=== PATIENT | female | born 1965 | race Hispanic/Latino ===

== ENCOUNTER 2017-03-15 11:42 | Emergency (ER) | payer MEDICARE, MEDICAID ==
[2017-03-15 12:26] LABS: #Basophils 0.1 thou/uL (0.0-0.2); #Eosinphils 0.2 thou/uL (0.0-0.7); #Monocytes 0.3 thou/uL (0.11-0.59); #Neutrophils 5.3 thou/uL (1.40-6.50); %Basophils 0.7 % (0.0-1.0); %Eosinophils 3.3 % (0.0-10.0); %Lymphocytes 14.9 % (21.0-51.0); %Monocytes 4.9 % (0.0-10.0); %Neutrophils 76.2 % (42.0-75.0); Hemoglobin 10.4 g/dL (12.0-16.0); Mean Corpuscular HGB CONC 33.3 g/dL (32.0-36.0); Mean Corpuscular Hemoglobin 29.7 pg (27.0-31.0); Mean Corpuscular Volume 89.3 fl (81.0-99.0); Platelet Count 183 thou/uL (130-400); RBC Distribution Width 12.5 % (11.5-14.5); Red Blood Cell (RBC) Count 3.51 mill/uL (4.20-5.40); White Blood Cell (WBC) Count 6.9 thou/uL (4.8-10.8)
[2017-03-15 12:44] LABS: ALT (SGPT) 11 U/L (8-55); AST (SGOT) 6 U/L (5-34); Albumin 2.7 g/dL (3.5-5.0); Alkaline Phosphatase 83 U/L (40-150); Anion Gap 14 mmol/L (10-20); BUN (Urea Nitrogen) 40 mg/dL (7.0-18.7); Bilirubin, Total 0.4 mg/dL (0.2-1.2); CK (CPK) 186 U/L (29-168); Calc. Creatinine Clearance 0 mL/min (70-130); Calcium 8.7 mg/dL (7.8-10.44); Carbon Dioxide 26 mmol/L (22-29); Chloride 100 mmol/L (98-107); Estimated GFR-MDRD 5; Globulin 3.2 g/dL (2.4-3.5); Glucose 487 mg/dL (70-105); Protein, Total 5.9 g/dL (6.0-8.3); Sodium 137 mmol/L (136-145)
[2017-03-15 12:48] LABS: CKMB 3.2 ng/mL (0-6.6); Troponin I 0.066 ng/mL (< 0.028)
[2017-03-15 13:15] LABS: Potassium 2.9 mmol/L (3.5-5.1)
--- NOTE | 2017-03-15 13:24 | RAD ---
CHEST: Date: 03/15/17 HISTORY: Trauma FINDINGS: There is small volume free air under the right hemidiaphragm. This is less likely interposition of sharda wel. There is no bowel on the prior CT examination interposed between the liver and right hemidiaphra gm. Of note, the patient is on peritoneal dialysis. Lungs are otherwise clear. IMPRESSION: 1. Free intraperitoneal gas may be sequelae of patient's peritoneal dialysis. Bowel injury is also w ithin the differential, although less likely. Also less likely interposition of bowel. 2. Clear lungs. Ayanna, the nurse taking care of the patient, was notified of the findings via telephone at 1256 hours. CODE CR. POS: [facility]
[2017-03-15] MEDS ORDERED: Potassium Chloride 20 MEQ TAB ONE (13:25)
--- NOTE | 2017-03-15 13:26 | RAD ---
RIGHT SHOULDER 3 VIEWS: Date: 03/15/17 HISTORY: Trauma. COMPARISON: None. FINDINGS: No displaced fracture or malalignment. Free intraperitoneal gas is present. IMPRESSION: No acute fracture or malalignment. POS: [facility]
--- NOTE | 2017-04-10 18:59 | EKG ---
Test Reason : Blood Pressure : / mmHG Vent. Rate : 064 BPM Atrial Rate : 064 BPM P-R Int : 140 ms QRS Dur : 084 ms QT Int : 442 ms P-R-T Axes : 012 002 112 degrees QTc Int : 455 ms Normal sinus rhythm Voltage criteria for left ventricular hypertrophy Inferior infarct , age undetermined T wave abnormality, consider lateral ischemia Abnormal ECG Confirmed by VESNA SMITH, MADISON Vance ([id number]), editor index CHRIS MYERS ([id number]) on 04/10/2017 6:58:26 PM Referred By: Confirmed By:MADISON MALAGON MD
== END 2017-03-15 14:26 | disposition home or self-care (01) ==
LOC: ERS 11:42
DX: S40.012A Contusion of left shoulder, initial encounter (principal); E87.6 Hypokalemia; E78.5 Hyperlipidemia, unspecified; E03.9 Hypothyroidism, unspecified; E11.22 Type 2 diabetes mellitus with diabetic chronic kidney disease; I13.2 Hypertensive heart and chronic kidney disease with heart failure and with stage 5 chronic kidney disease, or end stage renal disease; I50.9 Heart failure, unspecified; N18.6 End stage renal disease; I42.9 Cardiomyopathy, unspecified; D64.9 Anemia, unspecified; Z79.82 Long term (current) use of aspirin; Z79.899 Other long term (current) drug therapy; W18.30XA Fall on same level, unspecified, initial encounter
CPT/HCPCS: 71046; 80053; 82550; 82553; 84484; 85025; 93005

== ENCOUNTER 2017-05-08 21:26 | Emergency (ER) | payer MEDICARE, MEDICAID ==
[2017-05-08 22:15] LABS: Bilirubin Negative (Negative); Blood, Urine Moderate (Negative); Clarity CLOUDY (Clear); Glucose, Urine (Dipstick) 500 mg/dL (Negative); Leukocyte Negative (Negative); Nitrite Negative (Negative); Protein, Urine (Dipstick) > or equal to 300 mg/dL (Neg-Trace); Specific Gravity, Urine 1.023 (1.002-1.036); Urobilinogen 0.2 mg/dL (0.2-1.0); pH, Urine 6.5 (5.0-9.0)
[2017-05-08 22:19] LABS: Bacteria/HPF 2+ HPF (None Seen); Hyaline Casts/LPF 7-10 HYALINE CAST LPF (0-3 Hyaline); Squamous Epithelial 21-50 HPF (0-3)
[2017-05-08 22:20] LABS: Pathc Cast-AUWi Flag 2.98 (0-2.49)
[2017-05-08 22:37] LABS: #Eosinphils 0.3 thou/uL (0.0-0.7); #Lymphocytes 1.2 thou/uL (1.20-3.40); #Monocytes 0.4 thou/uL (0.11-0.59); #Neutrophils 4.6 thou/uL (1.40-6.50); %Basophils 0.7 % (0.0-1.0); %Eosinophils 4.1 % (0.0-10.0); %Lymphocytes 18.5 % (21.0-51.0); %Neutrophils 70.6 % (42.0-75.0); Hemoglobin 9.4 g/dL (12.0-16.0); Mean Corpuscular Volume 91.2 fl (81.0-99.0); Mean Platelet Volume 8.7 fL (7.4-10.4); Platelet Count 229 thou/uL (130-400); RBC Distribution Width 14.1 % (11.5-14.5); Red Blood Cell (RBC) Count 3.03 mill/uL (4.20-5.40); White Blood Cell (WBC) Count 6.5 thou/uL (4.8-10.8)
[2017-05-08 22:59] LABS: ALT (SGPT) 11 U/L (8-55); AST (SGOT) 10 U/L (5-34); Albumin 3.2 g/dL (3.5-5.0); Alkaline Phosphatase 64 U/L (40-150); Anion Gap 16 mmol/L (10-20); BUN (Urea Nitrogen) 51 mg/dL (7.0-18.7); Bilirubin, Total 0.4 mg/dL (0.2-1.2); Calc. Creatinine Clearance 0 mL/min (70-130); Calcium 8.6 mg/dL (7.8-10.44); Carbon Dioxide 27 mmol/L (22-29); Chloride 101 mmol/L (98-107); Estimated GFR-MDRD 4; Globulin 3.5 g/dL (2.4-3.5); Glucose 319 mg/dL (70-105); Lipase 18 U/L (8-78); Potassium 3.3 mmol/L (3.5-5.1); Protein, Total 6.7 g/dL (6.0-8.3); Sodium 141 mmol/L (136-145)
[2017-05-09] MEDS ORDERED: HYDROcodone/Acetaminophen 5/325 mg Tablet ONE (00:20)
[2017-05-09 00:36] LABS: INR-International Normal Ratio 1.2; PTT 29.7 SEC (22.9-36.1); Prothrombin Time 15.7 SEC (12.0-14.7)
[2017-05-09] MEDS ORDERED: Acetaminophen 500 MG TAB ONE (01:50)
--- NOTE | 2017-05-09 09:22 | RAD ---
PORTABLE CHEST: Date: 05/09/17 PROVIDED CLINICAL HISTORY: Chest pain. FINDINGS: Comparison made with the study dated 02/08/16. Left subclavian cardiac pacing device is again noted. Cardiac silhouette remains enlarged. Vascular c alcification involves the aortic arch. Evaluation of the left lung base is limited. No focal consolid ation, pleural fluid, or pneumothorax apparent. IMPRESSION: Cardiomegaly without evidence for an acute cardiopulmonary process. POS: [facility]
--- NOTE | 2017-05-09 09:59 | CT ---
PRELIMINARY REPORT/[facility]/EMERGENCY AFTER HOURS PROCEDURE: EXAM: CT Abdomen and Pelvis Without Intravenous Contrast EXAM DATE/TIME: Exam ordered 05/09/2017 3:09 AM CLINICAL HISTORY: 51 years old, female; Pain; Abdominal pain; Epigastric; Prior surgery; Patient HX: Er 8; F50 presents to ed C/O epigastric abd pain with migration to the l side. Pt reports back pain and OCAMPO. Pt reports being on dialysis and was due to receive it tonight. Surgical history of appendectomy, surgical histo ry of hysterectomy, surgical history of orthopedic surgery. Abscess on buttocks. Aicd, placement of p d catheter. TECHNIQUE: Axial computed tomography images of the abdomen and pelvis without intravenous contrast. Coronal refo rmatted images were created and reviewed. COMPARISON: No relevant prior studies available. FINDINGS: Lower thorax: Small pericardial effusion. Cardiomegaly. Cardiac device in place. ABDOMEN: Liver: Unremarkable. Gallbladder and bile ducts: Unremarkable. No calcified stones. No ductal dilation. Pancreas: Unremarkable. No ductal dilation. Spleen: Unremarkable. No splenomegaly. Adrenals: Unremarkable. No mass. Kidneys and ureters: Nonobstructive nephrolithiasis right kidney. Stomach and bowel: No bowel wall thickening or intestinal obstruction. Appendix: Appendix not visualized. No evidence of appendicitis. PELVIS: Bladder: Unremarkable. No stones. Reproductive: Prior hysterectomy. ABDOMEN and PELVIS: Intraperitoneal space: Unremarkable. No free air. No significant fluid collection. Bones/joints: No acute fracture. No dislocation. Soft tissues: There is edema/infiltration of the subcutaneous tissue of the superior buttocks bilater ally with small associated calcifications, likely chronic. No soft tissue gas or abscess. Vasculature: Unremarkable. No abdominal aortic aneurysm. Lymph nodes: Unremarkable. No enlarged lymph nodes. Tubes, lines and devices: Percutaneous dialysis catheter present in the pelvis. IMPRESSION: Small pericardial effusion. Thank you for allowing us to participate in the care of your patient. Dictated and Authenticated by: Bijan Quintana MD 05/09/2017 3:41 AM Central Time ([place] & [place]) FINAL REPORT EMERGENCY AFTER HOURS CT ABDOMEN AND PELVIS: Date: 05/09/17 IMPRESSION: I agree with the preliminary interpretation given by Kelsi. Comparison made with the study dated 03/25. Pericardial effusion appears similar to the prior study. POS: [facility]
--- NOTE | 2017-06-05 20:23 | EKG ---
Test Reason : ABD PAIN Blood Pressure : / mmHG Vent. Rate : 078 BPM Atrial Rate : 078 BPM P-R Int : 122 ms QRS Dur : 078 ms QT Int : 426 ms P-R-T Axes : 030 022 066 degrees QTc Int : 485 ms Normal sinus rhythm Minimal voltage criteria for LVH, may be normal variant Cannot rule out Inferior infarct , age undetermined Abnormal ECG Confirmed by DAVE BURNS ([id number]), pictures editor CHRIS MYERS ([id number]) on 06/05/2017 8:23:16 PM Referred By: Confirmed By:DAVE BURNS
== END 2017-05-09 04:06 | disposition home or self-care (01) ==
LOC: ERS 21:26
DX: R10.13 Epigastric pain (principal); I13.2 Hypertensive heart and chronic kidney disease with heart failure and with stage 5 chronic kidney disease, or end stage renal disease; E11.22 Type 2 diabetes mellitus with diabetic chronic kidney disease; N18.6 End stage renal disease; I50.9 Heart failure, unspecified; E78.5 Hyperlipidemia, unspecified; E03.9 Hypothyroidism, unspecified; E66.9 Obesity, unspecified; Z99.2 Dependence on renal dialysis; Z79.82 Long term (current) use of aspirin; Z79.01 Long term (current) use of anticoagulants
CPT/HCPCS: 36415; 71045; 74176; 80053; 81003; 81015; 83690; 85025; 85610; 85730; 93005

== ENCOUNTER 2017-05-20 09:02 | Emergency (ER) | payer MEDICARE, MEDICAID ==
[2017-05-20 09:34] LABS: #Basophils 0.1 thou/uL (0.0-0.2); #Eosinphils 0.2 thou/uL (0.0-0.7); #Monocytes 0.4 thou/uL (0.11-0.59); #Neutrophils 3.3 thou/uL (1.40-6.50); %Basophils 1.1 % (0.0-1.0); %Eosinophils 4.1 % (0.0-10.0); %Lymphocytes 19.9 % (21.0-51.0); %Monocytes 7.4 % (0.0-10.0); %Neutrophils 67.5 % (42.0-75.0); Mean Corpuscular Hemoglobin 30.8 pg (27.0-31.0); Mean Corpuscular Volume 90.5 fl (81.0-99.0); Mean Platelet Volume 8.5 fL (7.4-10.4); Platelet Count 221 thou/uL (130-400); RBC Distribution Width 13.2 % (11.5-14.5)
[2017-05-20 09:55] LABS: ALT (SGPT) 10 U/L (8-55); AST (SGOT) 10 U/L (5-34); Albumin 2.9 g/dL (3.5-5.0); Alkaline Phosphatase 61 U/L (40-150); Anion Gap 16 mmol/L (10-20); BUN (Urea Nitrogen) 57 mg/dL (7.0-18.7); Bilirubin, Total 0.3 mg/dL (0.2-1.2); Calc. Creatinine Clearance 0 mL/min (70-130); Calcium 8.9 mg/dL (7.8-10.44); Carbon Dioxide 28 mmol/L (22-29); Chloride 99 mmol/L (98-107); Estimated GFR-MDRD 5; Globulin 3.5 g/dL (2.4-3.5); Glucose 302 mg/dL (70-105); Protein, Total 6.4 g/dL (6.0-8.3); Sodium 139 mmol/L (136-145)
[2017-05-20 10:03] LABS: CKMB 3.7 ng/mL (0-6.6); Troponin I 0.054 ng/mL (< 0.028)
[2017-05-20] MEDS ORDERED: HYDROcodone/Acetaminophen 10/325 mg Tablet ONE (10:19)
--- NOTE | 2017-05-20 11:20 | RAD ---
PORTABLE CHEST: HISTORY: Right flank pain. Patient fell. COMPARISON: 05/09/2017 FINDINGS: Heart size is enlarged. Pacemaker is present. Lungs are clear of infiltrates. No rib fractures vis ualized. IMPRESSION: Cardiomegaly. POS: [facility]
--- NOTE | 2017-05-20 11:32 | ULT ---
RIGHT UPPER QUADRANT ULTRASOUND: HISTORY: A 51-year-old female with right upper quadrant pain. FINDINGS: The liver echogenicity is mildly hyperechoic, evidence for a nonspecific hepatic parenchymal process. No evidence of gallstones, gallbladder wall thickening, or pericholecystic fluid. The common bile duct is 0.2 cm. The visualized pancreas is unremarkable. The right kidney shows some diffuse increa sed echogenicity within the renal cortex, evidence for nonspecific chronic renal disease. IMPRESSION: 1. Minimal coarse increased liver echogenicity, evidence for nonspecific chronic liver disease. 2. Increased echogenicity within the right renal cortex, evidence for nonspecific right renal/kidney disease. 3. No gallstones or renal hydronephrosis or other acute process. POS: [facility]
== END 2017-05-20 12:01 | disposition home or self-care (01) ==
LOC: ERS 09:02
DX: B02.9 Zoster without complications (principal); R10.11 Right upper quadrant pain; I13.2 Hypertensive heart and chronic kidney disease with heart failure and with stage 5 chronic kidney disease, or end stage renal disease; I50.9 Heart failure, unspecified; N18.6 End stage renal disease; E78.5 Hyperlipidemia, unspecified; E03.9 Hypothyroidism, unspecified; E11.9 Type 2 diabetes mellitus without complications; D64.9 Anemia, unspecified
CPT/HCPCS: 36415; 71045; 76705; 80053; 82553; 83880; 84484; 85025; 93005

== ENCOUNTER 2017-06-12 23:08 | Emergency (ER) | payer MEDICARE, MEDICAID ==
[2017-06-12 23:32] LABS: #Eosinphils 0.3 thou/uL (0.0-0.7); #Lymphocytes 1.1 thou/uL (1.20-3.40); #Monocytes 0.4 thou/uL (0.11-0.59); #Neutrophils 3.3 thou/uL (1.40-6.50); %Basophils 0.8 % (0.0-1.0); %Eosinophils 4.9 % (0.0-10.0); %Lymphocytes 21.4 % (21.0-51.0); %Monocytes 8.2 % (0.0-10.0); %Neutrophils 64.7 % (42.0-75.0); Hemoglobin 10.1 g/dL (12.0-16.0); Mean Corpuscular HGB CONC 35.4 g/dL (32.0-36.0); Mean Corpuscular Hemoglobin 32.6 pg (27.0-31.0); Mean Platelet Volume 8.7 fL (7.4-10.4); Platelet Count 192 thou/uL (130-400); RBC Distribution Width 14.2 % (11.5-14.5); Red Blood Cell (RBC) Count 3.11 mill/uL (4.20-5.40); White Blood Cell (WBC) Count 5.1 thou/uL (4.8-10.8)
[2017-06-12 23:53] LABS: Chloride 99 mmol/L (98-107); Potassium 4.2 mmol/L (3.5-5.1); Sodium 137 mmol/L (136-145)
[2017-06-13 00:05] LABS: Albumin 3.1 g/dL (3.5-5.0)
[2017-06-13 00:07] LABS: Globulin 3.6 g/dL (2.4-3.5); Glucose 445 mg/dL (70-105); Protein, Total 6.7 g/dL (6.0-8.3)
[2017-06-13 00:08] LABS: Carbon Dioxide 25 mmol/L (22-29)
[2017-06-13 00:09] LABS: Bilirubin, Total 0.4 mg/dL (0.2-1.2)
[2017-06-13 00:10] LABS: Alkaline Phosphatase 86 U/L (40-150); Calc. Creatinine Clearance 0 mL/min (70-130); Estimated GFR-MDRD 5
[2017-06-13 00:11] LABS: BUN (Urea Nitrogen) 52 mg/dL (7.0-18.7)
[2017-06-13 00:12] LABS: AST (SGOT) 12 U/L (5-34)
[2017-06-13 00:13] LABS: ALT (SGPT) 14 U/L (8-55)
[2017-06-13 00:19] LABS: Anion Gap 17 mmol/L (10-20)
[2017-06-13] MEDS ORDERED: Aspirin 325 MG TAB ONE ×2 (01:10→01:11)
[2017-06-13] MEDS ORDERED: Morphine 4 MG/ML VIAL ONE (01:10)
[2017-06-13 01:26] LABS: CKMB 4.6 ng/mL (0-6.6); Troponin I 0.037 ng/mL (< 0.028)
--- NOTE | 2017-06-13 08:28 | RAD ---
AP VIEW CHEST: HISTORY: Mid back and chest pain. FINDINGS: AP view chest is obtained and demonstrates a dual-lead intracardiac defibrillator. Cardiomegaly is seen. Pulmonary vascular congestion is seen. No evidence of effusions, pneumonia, o r pneumothorax is seen. IMPRESSION: Cardiomegaly and pulmonary vascular congestion. POS: [facility]
== END 2017-06-13 03:25 | disposition home or self-care (01) ==
LOC: ERS 23:08
DX: M54.6 Pain in thoracic spine (principal); I13.2 Hypertensive heart and chronic kidney disease with heart failure and with stage 5 chronic kidney disease, or end stage renal disease; N18.6 End stage renal disease; I50.9 Heart failure, unspecified; E78.5 Hyperlipidemia, unspecified; E03.9 Hypothyroidism, unspecified; E66.9 Obesity, unspecified; E11.9 Type 2 diabetes mellitus without complications; D64.9 Anemia, unspecified
CPT/HCPCS: 36415; 71045; 80053; 82553; 84484; 85025; 93005; 94760; 96374; J2270

== ENCOUNTER 2017-07-07 11:27 | Observation (INO) | payer MEDICARE, MEDICAID ==
[2017-07-07 11:54] LABS: #Basophils 0.1 thou/uL (0.0-0.2); #Eosinphils 0.3 thou/uL (0.0-0.7); #Monocytes 0.5 thou/uL (0.11-0.59); #Neutrophils 3.6 thou/uL (1.40-6.50); %Basophils 1.2 % (0.0-1.0); %Eosinophils 5.6 % (0.0-10.0); %Lymphocytes 18.4 % (21.0-51.0); %Monocytes 9.5 % (0.0-10.0); %Neutrophils 65.4 % (42.0-75.0); Hemoglobin 9.2 g/dL (12.0-16.0); Mean Corpuscular HGB CONC 33.8 g/dL (32.0-36.0); Mean Corpuscular Hemoglobin 31.2 pg (27.0-31.0); Mean Corpuscular Volume 92.3 fl (81.0-99.0); Mean Platelet Volume 9.5 fL (7.4-10.4); Platelet Count 164 thou/uL (130-400); RBC Distribution Width 12.8 % (11.5-14.5); Red Blood Cell (RBC) Count 2.94 mill/uL (4.20-5.40); White Blood Cell (WBC) Count 5.4 thou/uL (4.8-10.8)
--- NOTE | 2017-07-07 12:12 | RAD ---
SINGLE VIEW CHEST: HISTORY: Bilateral lower extremity swelling with abdominal pain and shortness of breath. COMPARISON: 06/13/2017 FINDINGS: A single view of the chest shows an enlarged cardiomediastinal silhouette. There appears to be free air beneath the right diaphragm. The pacemaker is unchanged in position, and there is no evidence of consolidation, mass, or pleural effusion. IMPRESSION: There appears to be free air beneath the right hemidiaphragm. A CT of the abdomen and pelvis is travis mmended for further evaluation. Dr. Coy reported the patient does perform peritoneal dialysis, and a CT of the abdomen is ordere d at this time. This was discussed with Dr. Coy at 12:07 p.m. on 07/07/2017. CODE CR POS: [facility]
[2017-07-07 12:18] LABS: ALT (SGPT) 11 U/L (8-55); AST (SGOT) 14 U/L (5-34); Albumin 2.8 g/dL (3.5-5.0); Alkaline Phosphatase 77 U/L (40-150); Anion Gap 17 mmol/L (10-20); BUN (Urea Nitrogen) 57 mg/dL (7.0-18.7); Bilirubin, Total 0.3 mg/dL (0.2-1.2); Calc. Creatinine Clearance 0 mL/min (70-130); Calcium 7.8 mg/dL (7.8-10.44); Carbon Dioxide 23 mmol/L (22-29); Chloride 102 mmol/L (98-107); Estimated GFR-MDRD 5; Globulin 3.3 g/dL (2.4-3.5); Glucose 464 mg/dL (70-105); Magnesium 1.6 mg/dL (1.6-2.6); Potassium 4.3 mmol/L (3.5-5.1); Protein, Total 6.1 g/dL (6.0-8.3); Sodium 138 mmol/L (136-145)
[2017-07-07 12:26] LABS: CKMB 5.1 ng/mL (0-6.6); Troponin I 0.046 ng/mL (< 0.028)
--- NOTE | 2017-07-07 13:01 | CT ---
ABDOMEN CT WITH CONTRAST PELVIC CT WITH CONTRAST: Date: 07/07/17 COMPARISON: 04/09/16. HISTORY: Previous appendectomy and hysterectomy. Lower extremity swelling. Abdominal pain and shortness of boyd ath. TECHNIQUE: Abdomen and pelvic CT are performed with IV contrast. Enteric contrast was not administered. Coronal reformatted images are submitted for interpretation. FINDINGS: ABDOMEN CT: Heart is enlarged. Small amount of pericardial fluid. Visualized lung bases are clear. The descending thoracic aorta and abdominal aorta have a normal caliber. No periaortic fat stranding. Gallbladder is contracted due to nonfasting state. Intra and extrahepatic portal vein is patent. Liver, spleen, pancreas, and adrenal glands have appropriate enhancement. No gastrohepatic, retrocrural, or periportal lymphadenopathy. There is free air in the abdomen, similar to the previous examination and felt to be secondary to per itoneal dialysis. No mesenteric mass or lymphadenopathy. No significant free fluid. Symmetric enhancement of the kidneys. Bilaterally, no obstructive uropathy. Vascular calcifications i n the left and right renal pelvis are noted. Bilateral ureters have normal caliber. No hydroureter, periureteral fat stranding, or ureterolithiasis. Symmetric attenuation of the psoas muscles. Limited evaluation of the alimentary canal due to lack of oral contrast. Grossly unremarkable gastric mucosa. There are small foci of air along the greater curvature of the stomach. Presence of air is p resumed to be secondary to peritoneal dialysis catheter. Multiple normal caliber small bowel loops. N o evidence of small bowel dilatation. Ileocecal junction is normal. Scattered fecal material in a non distended, nondilated colon. There is diverticulosis. No definite diverticulitis. PELVIC CT: Urinary bladder is decompressed. No pelvic mass, lymphadenopathy, or free air. Trace amount of free f luid in the pelvis. Uterus is surgically absent. No lytic or blastic lesions in the osseous structures. IMPRESSION: Pneumoperitoneum, which is presumed to be due to peritoneal dialysis. No obvious bowel injury. Evalua tion is limited by the lack of oral contrast. If the patient has peritoneal sign, and there is concer n for possible bowel injury, consider a general surgical consultation. Results of study discussed with Gracy Coy on 07/07/17 at 1222 hours. CODE CR. POS: [facility]
[2017-07-07 13:34] LABS: INR-International Normal Ratio 1.7; PTT 34.5 SEC (22.9-36.1); Prothrombin Time 20.1 SEC (12.0-14.7)
[2017-07-07] MEDS ORDERED: ISOVUE-370 76%-LOCM 1 ML ONE (15:14)
[2017-07-07] MEDS ORDERED: cloNIDine 0.1 MG TAB ONE ×2 (15:48→15:49)
[2017-07-07] MEDS ORDERED: hydrALAZINE 20 MG/ML VIAL SLOW IVP PRN (16:35)
[2017-07-07] MEDS ORDERED: Acetaminophen 325 MG TAB PO PRN (16:35)
[2017-07-07] MEDS ORDERED: Dextrose 5% in Water 1,000 ML IV PRN (16:35)
[2017-07-07] MEDS ORDERED: Dextrose 50% Abboject 50 ML SYRINGE SLOW IVP PRN (16:35)
[2017-07-07] MEDS ORDERED: HYDROcodone/Acetaminophen 5/325 mg Tablet PO PRN ×2 (16:35)
[2017-07-07 16:49] VITALS: BMI 51.2
[2017-07-07] MEDS ORDERED: Warfarin Sodium 5 MG TAB PO SCH (17:00)
[2017-07-07] MEDS: Calcium Acetate 667 MG CAP PO SCH (18:11)
[2017-07-07] MEDS: Metoclopramide 10 MG/10 ML UDCUP PO SCH ×2 (18:12→19:50)
[2017-07-07] MEDS: Carvedilol 25 MG TAB PO SCH (18:12)
[2017-07-07] MEDS: HumaLOG 300 UNITS/3 ML VIAL SC PRN (18:20)
[2017-07-07] MEDS: Isosorbide Dinitrate 20 MG TAB PO SCH (19:50)
[2017-07-07] MEDS ORDERED: HumaLOG 300 UNITS/3 ML VIAL SC PRN (20:45)
[2017-07-07] MEDS ORDERED: Famotidine 20 MG TAB PO SCH (21:00)
--- NOTE | 2017-07-07 22:35 | CON ---
DATE OF CONSULTATION: 07/07/2017 HISTORY OF PRESENT ILLNESS: Ms. Nuñez is a 51-year-old female with ESRD from presumed d iabetic nephropathy and admitted for ? of shortness of breath. She also was complaining of nasal con gestion. During the initial evaluation, she had noted as extremely high blood pressure with a BP sys tolic more than 200. She is now admitted for further observation. We are now being consulted for he r maintenance peritoneal dialysis. REVIEW OF SYSTEMS: Positive for mild shortness of breath. Positive for chronic leg swelling. No na usea, no vomiting, no diarrhea, no constipation, no productive cough, no abdominal pain, no headache, no diplopia, no fever or chills, no gross hematuria, no dysuria, no hematochezia, no melena. No hem atemesis. Occasional joint pains. MEDICATIONS: Currently on PhosLo 667 mg 3 tabs t.i.d. with meals, calcitriol 0.5 mcg q. day, Ecotrin 81 mg tab once a day, Jellico 5/325 q.4 hours p.r.n., Coreg 50 mg p.o. b.i.d., Pepcid 20 mg q.a.m., hy dralazine 10 mg IV q.3 hours p.r.n., Humalog sliding scale, Synthroid 25 mcg q. day, Isordil 20 mg p. o. b.i.d., Zestril 40 mg at bedtime, Coumadin as directed, Reglan 50 mg at bedtime. PAST MEDICAL HISTORY: 1. ESRD from diabetic nephropathy - on maintenance peritoneal dialysis. 2. Type 2 diabetes mellitus. 3. Hypothyroidism. 4. Cardiomyopathy - EF of 30%. 5. Hyperlipidemia. 6. Status post CHF. 7. Morbid obesity. 8. Hypertension. PAST SURGICAL HISTORY: 1. Status post PD catheter placement. 2. The patient is status post cardiac catheterization. 3. Status post hysterectomy. 4. Status post appendectomy. 5. Status post right ankle surgery. 6. Status post great toe amputation. 7. Status post cuffed dialysis catheter placement. SOCIAL HISTORY: The patient lives in [place], lives with her daughter. She has 4 children. Retired w orker for [email or web address] No IV drug abuse. No alcohol use. No history of smoking. Education, primary grade in [place]. Status post blood transfusion. ALLERGIES: None. TRAUMA: None. IMMUNIZATIONS: Up to date. HOSPITALIZATIONS: Please see past medical history. FAMILY HISTORY: No family history of ESRD. PHYSICAL EXAMINATION: VITAL SIGNS: Blood pressure is 226/122, heart rate 69, respiratory rate 18, pulse ox 95%, temperatur e 98.3. GENERAL: Noted to be awake, supine, comfortable, morbidly obese. SKIN: Adequate turgor. HEENT: She has a slight pale conjunctivae, anicteric sclerae. NECK: No neck mass, no carotid bruits, no JVD. CHEST: No deformities. LUNGS: Clear breath sounds, no wheezing, no crackles. HEART: Normal sinus rhythm. Grade 2/6 systolic murmur, no gallops, no rubs. ABDOMEN: Globular, soft, nontender, no masses. EXTREMITIES: Positive for edema. NEUROLOGIC: Awake, oriented to 3 spheres. Moving all extremities. No tremors, no asterixis, no alina anthony. LABORATORY DATA AND IMAGING: Laboratories on 07/07/2017, white count 5.4, hemoglobin 9.2. Sodium 13 8, potassium 4.3, chloride 102, carbon dioxide 23, BUN 57, creatinine 8.88, glucose 464, calcium 7.8. LFTs normal. Chest x-ray, no overt CHF. CT scan of the abdomen and pelvis, no acute intraabdomina l lesions noted. ASSESSMENT AND PLAN: 1. Congestive heart failure - symptoms suggest fluid overload. However, the chest x-ray did not shakila w any overt congestive heart failure. My plan is to at least for tonight only will use a 4.25% PD so lution alternating with 2.5% PD solution to enhance ultrafiltration. 2. End-stage renal disease. We will continue current CCPD regimen. For tonight, we will be using 4 .25 alternating with 2.5% PD solution. In the following day, we will convert her back to 2.5% PD belinda ution using a 2.5 liter fill volume and run her PD for at least 10 hours. 3. Hypertension. Resume current blood pressure medications. 4. Chronic leg edema - enhance fluid filtration with the peritoneal dialysis. Overall, agree with c urrent management. ADDENDUM: Review of the last Kt/V with her current peritoneal dialysis suggests she is adequately di alyzed.
[2017-07-07] MEDS: hydrALAZINE 25 MG TAB PO SCH (23:44)
--- NOTE | 2017-07-08 01:16 | CON ---
DATE OF CONSULTATION: 07/07/2017 HISTORY OF PRESENT ILLNESS: The patient is a 51-year-old [place]-Maced[place] female with longstanding history of hypertension, ischemic and nonischemic cardiomyopathy, coronary artery disease, and end-stage renal disease on peritoneal dialysis. She is brought in by her family because of increased shortness of breath and peripheral edema. In the emergency room, her blood pressure was elevated. She denies any chest discomfort, fever, or chills. She does complain of some mild abdominal pain. PAST MEDICAL HISTORY: Hypertension, coronary artery disease, end-stage renal disease, cardiomyopathy, paroxysmal atrial fibrillation, hyperlipidemia, and diabetes. OPERATIONS: ICD placement (single chamber), appendectomy, hysterectomy, and ankle surgery. MEDICATIONS: Aspirin 81 daily, atorvastatin 80 mg at bedtime, Rocaltrol 0.25 daily, Tums 800 mg at bedtime, carvedilol 50 mg b.i.d., gabapentin 300 at bedtime, hydralazine 25 t.i.d., insulin, isosorbide dinitrate 10 b.i.d., levofloxacin 250 mg q. 2 days, levothyroxine 25 mcg daily, lisinopril 20 b.i.d. , and warfarin as directed. ALLERGIES: None. SOCIAL HISTORY: She does not smoke or drink. FAMILY HISTORY: Negative for coronary artery disease. REVIEW OF SYSTEMS: A 10-point review of systems otherwise unremarkable. PHYSICAL EXAMINATION: VITAL SIGNS: Blood pressure 204/101. HEENT: PERRL. NECK: Supple. CHEST: Clear. CARDIAC: S1 and S2 are normal without any S3, S4, or murmurs. ABDOMEN: Normal bowel sounds. EXTREMITIES: Revealed 1-2+ pretibial edema. NEUROLOGIC: Grossly intact. SKIN: Warm and dry. LABORATORY DATA: EKG reveals normal sinus rhythm. Hemoglobin 9.2, hematocrit 27.9, white count 5400, and platelets 164,000. INR 1.7. Sodium 138, potassium 4.3, chloride 102, carbon dioxide 23, BUN 57, creatinine 8.88, glucose 464. Troponin I maximum is 0.046. IMPRESSION: 1. End-stage renal disease on peritoneal dialysis with volume overload. 2. Hypertension, poorly controlled. 3. Coronary artery disease. 4. Paroxysmal atrial fibrillation. 5. Ischemic and nonischemic cardiomyopathy with ejection fraction of 30%. 6. Diabetes. 7. Hyperlipidemia. PLAN: The patient's hydralazine will be increased from 25 mg t.i.d. to 50 mg t.i.d. She probably needs more aggressive volume removal. We will follow the patient. MTDD
[2017-07-08] MEDS: HumaLOG 300 UNITS/3 ML VIAL SC PRN ×2 (05:33→12:05)
[2017-07-08] MEDS: hydrALAZINE 25 MG TAB PO SCH (05:46)
[2017-07-08] MEDS ORDERED: Levothyroxine Sodium 25 MCG TAB PO SCH (06:00)
[2017-07-08] MEDS: Isosorbide Dinitrate 20 MG TAB PO SCH (07:43)
[2017-07-08] MEDS: Calcium Acetate 667 MG CAP PO SCH (07:43)
[2017-07-08] MEDS: Carvedilol 25 MG TAB PO SCH (07:44)
[2017-07-08] MEDS: Metoclopramide 10 MG/10 ML UDCUP PO SCH (07:45)
[2017-07-08] MEDS ORDERED: INSULIN ASPART SQ SCH (09:00)
[2017-07-08] MEDS ORDERED: Calcitriol 0.25 MCG CAP PO SCH (09:00)
[2017-07-08] MEDS ORDERED: Aspirin 81 mg Enteric Coated Tablet PO SCH (09:00)
[2017-07-08] MEDS ORDERED: [UNRECOGNIZED DRUG - OTHER] SQ SCH (09:00)
[2017-07-08] MEDS ORDERED: INSULIN ASPART PROTAMINE SQ SCH (09:00)
[2017-07-08] MEDS ORDERED: Lisinopril 20 MG TAB PO SCH (09:00)
[2017-07-08] MEDS ORDERED: Amlodipine 10 MG TAB PO SCH (09:15)
[2017-07-08] MEDS ORDERED: Sodium Chloride 0.9% 110 ML ONE (10:16)
[2017-07-08] MEDS ORDERED: Insulin NPH/Reg Insulin Hm 300 UNITS/3 ML VIAL SC SCH ×3 (10:30→21:00)
[2017-07-08] MEDS ORDERED: CALCIUM ACETATE PO SCH (12:00)
[2017-07-08] MEDS ORDERED: Calcium Acetate 667 MG CAP PO SCH (12:00)
--- NOTE | 2017-07-08 12:28 | PRG ---
DATE OF SERVICE: 07/08/2017 RENAL MEDICINE SUBJECTIVE: Ms. Savannah Franco is 51-year-old female with ESRD, on peritoneal dialysi s. She was admitted for mild CHF as well as labile hypertension. I did ask the patient's daughter, and she tells me that when she takes her BP meds, sometimes the blood pressure goes down for that faby son, sometimes she skips it. She was counseled regarding compliance with her BP meds and to call us if she has any problem. In addition, I used alternating 2.5/4.25% peritoneal dialysis solution to en stone ultrafiltration. We were able to pull out 1.5 liters of fluid this morning. No other complain ts. She feels a little better. PHYSICAL EXAMINATION: VITAL SIGNS: Blood pressure is 116/79, heart rate is 75, respiratory rate 18, pulse ox 97%, temperat ure 98.3. GENERAL: Awake, alert, comfortable, obese, not in distress. SKIN: Adequate turgor. HEENT: Slightly pale conjunctivae, anicteric sclerae. NECK: No neck mass, no carotid bruits, no JVD. CHEST: No deformities. LUNGS: Decreased breath sounds. No wheezing. HEART: Normal sinus rhythm. No murmurs, no gallops, no rubs. ABDOMEN: Globular, soft, nontender, no masses. Positive for PD catheter. EXTREMITIES: Trace edema. MEDICATIONS: Medications of 07/08/2017 was reviewed. LABORATORY DATA: Laboratories of 07/07/2017; hemoglobin 9.2. On 07/08/2017, glucose 429. On 07/07/2017, BUN 67, creatinine 8.88, potassium 4.3. ASSESSMENT AND PLAN: 1. End-stage renal disease - continuing current peritoneal dialysis. I did instruct the patient and daughter to use alternating 4.25% with 2.5% to enhance ultrafiltration and they will do this until S unday. This is assuming she will be discharged today. She will resume back to a regular 2.5% PD belinda ution next week. 2. Shortness of breath, improved. Adjust peritoneal dialysis solution to enhance ultrafiltration. 3. Labile hypertension, much improved. Advised compliance with her blood pressure meds. If she shakila uld have a problem, I instructed the patient to call the dialysis unit. From a renal point of view, she can be discharged.
[2017-07-08 12:44] VITALS: TEMP 98.7
--- NOTE | 2017-07-08 12:53 | HP ---
DATE OF ADMISSION: 07/07/2017 PRIMARY CARE PHYSICIAN: Ijeoma Hilliard PRIMARY CHOIR DIRECTOR: Dr. Stephens PRIMARY CUSTOMER EXPERIENCE STRATEGIST: Dr. Mcdaniel TIME OF SERVICE: 1500 CHIEF COMPLAINT: Increased lower extremity edema, abdominal pain, and headache. HISTORY OF PRESENT ILLNESS: Ms. Savannah Dhaliwal is a 51-year-old female with his tory of end-stage renal disease on peritoneal dialysis nightly, hypertension, anemia of renal disease , metabolic bone disease, hyperlipidemia, ischemic cardiomyopathy and chronic systolic congestive hea rt failure. She does has obesity, diabetes, and hypothyroidism. She presented to the emergency depa rtment for multiple complaints. Her main complaints are lower extremity swelling for the last 2-3 da ys with increased pain due to the swelling. She has had abdominal pain in the left lower quadrant th at is worse with cough and she complains of a headache for 1 day located in the bifrontal area. She has some shortness of breath and some sore throat and chronic postnasal drip and also had some vomiti ng a few days ago, but no blood. She has been a little bit lightheaded. She describes just feeling a little dizzy when she first stands up and also complained of chronic back pain. She presented to the emergency department for evaluation. Her labs were normal for end-stage renal d isease. Blood pressure was elevated at 220/84. Chest x-ray showed possible free air, but CT confirm ed some free air secondary to the peritoneal dialysis catheter, otherwise no abnormalities. We have subsequently been called for admission. On my evaluation, she was a chronically ill-appearing, severely obese, lying in bed, had no other cur rent complaints. PAST MEDICAL HISTORY: 1. End-stage renal disease, on peritoneal dialysis nightly managed by Dr. Stephens. 2. Hypertension. 3. Anemia of renal disease. 4. Metabolic bone disease. 5. Hyperlipidemia. 6. Ischemic cardiomyopathy with an EF of 30%, followed by Dr. Mcdaniel. 7. Chronic systolic congestive heart failure. 8. Hypothyroidism. 9. Obesity. 10. Diabetes mellitus type 2, insulin-dependent. PAST SURGICAL HISTORY: 1. Right hallux amputation. 2. Appendectomy. 3. Hysterectomy. 4. Right ankle ORIF remotely. 5. Buttock abscess drainage. 6. AICD implantation due to cardiomyopathy. 7. Peritoneal dialysis catheter placement 11/2015. HOME MEDICATIONS: 1. Tylenol p.r.n. 2. Atorvastatin 80 mg p.o. at bedtime. 3. Calcitriol 0.5 mg p.o. three times weekly. 4. PhosLo 667 mg x4 tablets t.i.d. a.c. 5. Coreg 50 mg p.o. b.i.d. 6. Isosorbide dinitrate 10 mg p.o. b.i.d. 7. Levothyroxine 25 mcg daily. 8. Lisinopril 40 mg daily. 9. Reglan p.r.n. 10. Vitamin D3 5000 units daily. 11. Warfarin 5 mg Wednesday, Wednesday, Wednesday, Wednesday, Wednesday and 7.5 mg on Wednesday, . 12. Hydralazine 25 mg p.o. t.i.d. p.r.n. systolic pressure greater than 140. 13. Insulin 70/30, 20 units subcu b.i.d. ALLERGIES: NKDA. FAMILY HISTORY: No clotting or bleeding disorder. No immune dysfunction. SOCIAL HISTORY: Negative for habits x3. She has multiple children. Her son and her daughter are wi th her. REVIEW OF SYSTEMS: All systems were reviewed and negative, except as stated as above. PHYSICAL EXAMINATION: VITAL SIGNS: Temperature 97.6, pulse 78, blood pressure 220/84, respiratory rate 16, sat 94% on room air. GENERAL: She is awake. She is alert. She is oriented x3. She is a severely obese f emale, appears syndromic. She has normal speech pattern. Otherwise, in no distress. HEENT: Normocephalic, atraumatic. Pupils equal, react to light bilaterally. Mucous membranes are m oist. She has a posterior nasal drip. NECK: Obese. I cannot palpate JVD or lymphadenopathy. LUNGS: Clear to auscultation bilaterally. She has decreased breath sounds bilaterally, particularly in the bases. No wheezes, no rales, no rhonchi. No prolonged expiratory phase. CARDIOVASCULAR: She has normal cardiac and regular. Normal S1, S2. I cannot hear an S3 or S4. I c annot hear murmurs. ABDOMEN: Obese. It is nontender, nondistended. Peritoneal dialysis catheter in the right lower david drant is clean, dry and intact. She has no rebound, rigidity or guarding. No peritoneal signs. EXTREMITIES: No cyanosis or clubbing with 1+ edema up to the ankle level. Her skin is otherwise war m, moist and well perfused without any rashes or lesions. No erythema. NEUROLOGIC: Cranial nerves II-XII are grossly intact without any focal neurologic deficits. SKIN: She has normal speech pattern. She had 5/5 strength in all 4 extremities. MUSCULOSKELETAL: Normal to inspection. Large joints appear normal. She had adequate range of motio n and no palpable effusions. No inflammation. LABORATORY DATA: Sodium 138, potassium 4.3, chloride 102, bicarb 23, BUN 57, creatinine 8.88, glucos e of 464, mag of 1.6. Albumin is low 2.8. Her liver functions, otherwise completely within normal limits. CBC showed a wh ite count of 5.4, hemoglobin 9.2, hematocrit 27.2, platelet count is 164,000. Normal differential. CK-MB is normal at 5.1. Troponin I is indeterminate at 0.046, but is at her baseline. BNP was carola l. INR is 1.7. Chest x-ray showed possible free air. Her CT scan of the abdomen showed a pneumoperitoneum secondary to her PD catheter, otherwise negative. ASSESSMENT AND PLAN: 1. Hypertensive urgency. Blood pressure 220/80s on arrival. Blood pressure not adequately controll ed, suppose to take her morning medicines. We will resume her home medications. We will go and sche dule her hydralazine and watch overnight. IV hydralazine ordered p.r.n. and may need to add somethin g more long-acting. We will consult Dr. Stephens. 2. End-stage renal disease on hemodialysis. Dr. Stephens will be consulted. 3. Acute on chronic systolic congestive heart failure, will diurese with Lasix tonight, Dr. Stephens will adjust her peritoneal dialysate to maximize fluid removal. 4. Abdominal pain likely secondary to muscle strain from coughing. 5. Lower extremity edema secondary to volume overload. Interestingly, the daughter asked to go down to the cafeteria and get her mom some soup for dinner, however, when I explained to her that it had a high sodium content she literally had no idea what I was talking about. 6. Frontal headache, likely secondary to hypertension. 7. Chronic shortness of breath. 8. Posterior sore throat secondary to postnasal drip. 9. Essential hypertension. 10. Anemia of renal disease. 11. Metabolic bone disease. 12. Hyperlipidemia. 13. Ischemic cardiomyopathy as above. 14. Hypothyroidism 15. Diabetes mellitus type 2. We will continue sliding scale insulin for now. We will hold her 70/ 30 and likely start it in the morning.
[2017-07-08 12:57] VITALS: BP 164/80
--- NOTE | 2017-07-08 14:36 | DIS ---
DATE OF ADMISSION: 07/07/2017 DATE OF DISCHARGE: 07/08/2017 PRIMARY CARE PHYSICIAN: Juliano Dobbins. PRIMARY APPLICATIONS INSTRUCTOR: Aaron Stephens M.D. PRIMARY HOSPICE MASSAGE THERAPIST: Byron Mcdaniel M.D. DISCHARGE DIAGNOSES: 1. Hypertensive urgency. 2. Acute on chronic systolic congestive heart failure. 3. Medical nonadherence. 4. Essential hypertension. 5. End-stage renal disease on peritoneal dialysis nightly. 6. Hyperlipidemia. 7. Diabetes mellitus type 2. 8. Hypothyroidism. CONSULTATIONS: 1. Dr. Aaron Stephens with Nephrology. 2. Dr. Byron Mcdaniel with Cardiology. PROCEDURES: Peritoneal dialysis overnight. HISTORY AND PHYSICAL: Ms. Savannah Franco is a pleasant 51-year-old severely obese female with the above history who presented to the emergency department with multiple complaints. She is found to have elevated blood pressure, increased lower extremity edema, normal oxygen levels, and headache. Workup was largely unremarkable. She was placed in observation overnight for blood pressure control. Nephrology was consulted and Dr. Mcdaniel with Cardiology was consulted. HOSPITAL COURSE: The patient is seen and examined by me in the emergency department, placed on [facility] vation. She was continued on home medications with increased isosorbide dinitrate and scheduled hydr alazine where she took it primarily p.r.n. before and p.r.n. hydralazine IV. Overnight, she refused her oral hydralazine because her blood pressure was "normal." She only takes it with her blood pressure over 140 systolic. She has subsequently developed increased blood pressure overnight in the 179-180 range. This morning, she was given her home medicines early and had a fairly decent response. She underwent dialysis with a mixed dialysate of 2.5 and 4.5 bags and did well. She had negative net 1.5 liters of fluid removal overnight. She was seen by Cardiology and Nephrology both cleared to go home, but recommended to take her regula r meds as prescribed, adhere to her low salt, renal heart healthy diet and attempt followup. She is otherwise stable for discharge. PHYSICAL EXAMINATION: The patient was seen and examined on the day of discharge. Discharge plan and disposition was discussed with the patient and her daughter face to face at the [facility]. DISCHARGE MEDICATIONS: 1. Renvela 800 mg p.o. t.i.d. a.c. 2. PhosLo 667 mg tablets 4 tablets p.o. t.i.d. a.c. 3. Aspirin 81 mg daily. 4. Calcitriol 0.25 mcg p.o. daily. 5. Carvedilol 50 mg p.o. b.i.d. 6. Gabapentin 300 mg p.o. at bedtime. 7. 70/30 insulin 20 units subcu b.i.d. 8. Levothyroxine 25 mcg a day. 9. Lisinopril 20 mg p.o. b.i.d. 10. Warfarin 7.5 mg p.o. every Wednesday, , and 5 mg Wednesday, Wednesday, Wednesday, Wednesday, and Wednesday. 11. Atorvastatin 80 mg p.o. at bedtime. 12. Tylenol p.r.n. 13. Calcium carbonate 800 mg p.o. at bedtime. 14. Vitamin D3 5000 units p.o. daily. 15. Hydralazine 25 mg p.o. t.i.d. scheduled. 16. Isosorbide dinitrate increased from 10 b.i.d. to 20 mg p.o. t.i.d. 17. Resume levofloxacin, she was taken before. DISCHARGE CONDITION: Stable. DISPOSITION: Discharged home via private vehicle. [facility] 2. Dr. Stephens per his clinic schedule. 3. Dr. Byron Mcdaniel as previously scheduled. DISCHARGE DIET: Heart healthy, diabetic, renal diet with low sodium recommended. DISCHARGE ACTIVITY: As tolerated.
[2017-07-08] MEDS ORDERED: Isosorbide Dinitrate 20 MG TAB PO SCH (15:00)
[2017-07-08] MEDS ORDERED: hydrALAZINE 25 MG TAB PO SCH (15:00)
[2017-07-08] MEDS ORDERED: Warfarin Sodium 7.5 MG TAB PO SCH (17:00)
[2017-07-08] MEDS ORDERED: Non-Formulary Item 1 EACH (Gabapentin [Gralise] 300 MG) PO SCH (21:00)
[2017-07-08] MEDS ORDERED: Gabapentin 300 MG CAP PO SCH (21:00)
[2017-07-09] MEDS ORDERED: Amlodipine 5 MG TAB PO SCH (09:00)
== END 2017-07-08 13:55 | disposition home or self-care (01) ==
LOC: ERS 11:27 → 2SW 14:56
PROVIDERS: ADMIT Internal Medicine Infectious Disease; ATTEND Internal Medicine Infectious Disease
DX: R60.0 Localized edema (principal); I13.2 Hypertensive heart and chronic kidney disease with heart failure and with stage 5 chronic kidney disease, or end stage renal disease; E11.22 Type 2 diabetes mellitus with diabetic chronic kidney disease; N18.6 End stage renal disease; I50.23 Acute on chronic systolic (congestive) heart failure; D63.1 Anemia in chronic kidney disease; N25.0 Renal osteodystrophy; E78.5 Hyperlipidemia, unspecified; E03.9 Hypothyroidism, unspecified; I25.5 Ischemic cardiomyopathy; I16.0 Hypertensive urgency; I48.0 Paroxysmal atrial fibrillation; I25.10 Atherosclerotic heart disease of native coronary artery without angina pectoris; E11.21 Type 2 diabetes mellitus with diabetic nephropathy; E66.01 Morbid (severe) obesity due to excess calories; Z68.43 Body mass index [BMI] 50.0-59.9, adult; Z99.2 Dependence on renal dialysis; Z79.4 Long term (current) use of insulin; Z79.01 Long term (current) use of anticoagulants; Z79.82 Long term (current) use of aspirin; Z79.899 Other long term (current) drug therapy; Z91.14 Patient's other noncompliance with medication regimen
CPT/HCPCS: 71045; 74177; 80053; 82553; 82962 ×2; 83735; 84484; 85025; 85610; 85730; 93005; 94760; 96374; 97139 ×2; 99285; G0257; G0378; 36416; 90945; A4216; J0360

== ENCOUNTER 2017-08-01 09:26 | Observation (INO) | payer MEDICARE, MEDICAID ==
[2017-08-01 10:05] LABS: #Basophils 0.1 thou/uL (0.0-0.2); #Eosinphils 0.2 thou/uL (0.0-0.7); #Monocytes 0.5 thou/uL (0.11-0.59); #Neutrophils 4.9 thou/uL (1.40-6.50); %Basophils 0.9 % (0.0-1.0); %Eosinophils 3.5 % (0.0-10.0); %Lymphocytes 14.5 % (21.0-51.0); %Monocytes 7.3 % (0.0-10.0); %Neutrophils 73.7 % (42.0-75.0); Hemoglobin 9.3 g/dL (12.0-16.0); Mean Corpuscular HGB CONC 34.8 g/dL (32.0-36.0); Mean Corpuscular Hemoglobin 31.3 pg (27.0-31.0); Mean Corpuscular Volume 89.8 fl (81.0-99.0); Mean Platelet Volume 9.2 fL (7.4-10.4); Platelet Count 186 thou/uL (130-400); RBC Distribution Width 12.5 % (11.5-14.5); Red Blood Cell (RBC) Count 2.98 mill/uL (4.20-5.40); White Blood Cell (WBC) Count 6.6 thou/uL (4.8-10.8)
[2017-08-01 10:06] LABS: Bilirubin Negative (Negative); Blood, Urine Moderate (Negative); Clarity CLOUDY (Clear); Glucose, Urine (Dipstick) >=1000 mg/dL (Negative); Leukocyte Negative (Negative); Nitrite Negative (Negative); Protein, Urine (Dipstick) 300 mg/dL (Neg-Trace); Specific Gravity, Urine 1.023 (1.002-1.036); Urobilinogen 0.2 mg/dL (0.2-1.0); pH, Urine 7.5 (5.0-9.0)
[2017-08-01 10:09] LABS: Bacteria/HPF 1+ HPF (None Seen); Hyaline Casts/LPF 4-6 HYALINE CAST LPF (0-3 Hyaline); Pathc Cast-AUWi Flag 1.01 (0-2.49); WBC/HPF 21-50 HPF (0-3)
[2017-08-01] MEDS ORDERED: hydrALAZINE 20 MG/ML VIAL ONE (10:19)
[2017-08-01 10:21] LABS: ALT (SGPT) 13 U/L (8-55); AST (SGOT) 11 U/L (5-34); Albumin 3.1 g/dL (3.5-5.0); Alkaline Phosphatase 185 U/L (40-150); Anion Gap 16 mmol/L (10-20); BUN (Urea Nitrogen) 44 mg/dL (9.8-20.1); Bilirubin, Total 0.4 mg/dL (0.2-1.2); CK (CPK) 319 U/L (29-168); Calc. Creatinine Clearance 0 mL/min (70-130); Calcium 7.9 mg/dL (7.8-10.44); Carbon Dioxide 25 mmol/L (22-29); Chloride 95 mmol/L (98-107); Estimated GFR-MDRD 5; Globulin 3.7 g/dL (2.4-3.5); Lipase 67 U/L (8-78); Potassium 3.2 mmol/L (3.5-5.1); Protein, Total 6.8 g/dL (6.0-8.3); Sodium 133 mmol/L (136-145)
[2017-08-01 10:24] LABS: Glucose 713 mg/dL (70-105)
[2017-08-01 10:26] LABS: CKMB 5.7 ng/mL (0-6.6); Troponin I 0.051 ng/mL (< 0.028)
--- NOTE | 2017-08-01 11:53 | RAD ---
UPRIGHT PORTABLE CHEST 1 VIEW: Date: 08/01/17 HISTORY: 52-year-old female with history of chest pain and abdominal pain since yesterday. COMPARISON: 07/07/17. FINDINGS: Cardiomegaly with left ICD. Mild vascular congestion. Again noted is evidence for some free intraperi toneal air, but improved from the 07/07/17 study. No new pulmonary parenchymal process. IMPRESSION: Stable cardiomegaly and left ICD. Improving free intraperitoneal air from prior study. POS: BIBIANA
[2017-08-01] MEDS ORDERED: Nitroglycerin 2% Ointment 1 INCH/1 GM Packet ONE (12:41)
[2017-08-01] MEDS ORDERED: Insulin Regular 300 UNITS/3 ML VIAL ONE (12:41)
[2017-08-01] MEDS ORDERED: Ondansetron ODT 8 MG TAB ONE (13:01)
[2017-08-01 13:33] LABS: Prothrombin Time 13.3 SEC (12.0-14.7)
[2017-08-01 13:55] LABS: Troponin I 0.048 ng/mL (< 0.028)
--- NOTE | 2017-08-01 14:57 | HP ---
DATE OF ADMISSION: 08/01/2017 PRIMARY CARE PHYSICIAN: [facility]. PRIMARY CONVERSION WORKER: Dr. Stephens. CHIEF COMPLAINT: Abdominal discomfort since yesterday. HISTORY OF PRESENT ILLNESS: The patient is a 52-year-old female with end-stage renal disease, on peritoneal dialysis; chronic systolic heart failure , ejection fraction 30% range; diabetes mellitus, type 2, on insulin; and obesity; who presented to the emergency room with above complaints. Over the last 24 hours, the patient developed abdominal discomfort that was mainly in the epigastric region and the right upper quadrant. It was sharp in nature, aggravated by movement. She also had some nausea without any vomiting. The pain was constant without any aggravating or relieving factor. She had a normal bowel movement yesterday. No fever, chills, diaphoresis, syncope, palpitations reported. In the emergency room, her initial vital signs showed temperature 98.6, respirations 18, pulse of 83 with blood pressure 217/111 with O2 saturation 96% on room air. Her EKG showed sinus rhythm with left ventricular hypertrophy and nonspecific ST-T-wave changes. Troponin was 0.051 with blood sugar of 713. She received nitro patch, hydralazine, Zofran, and aspirin in the emergency room. PAST MEDICAL HISTORY: 1. End-stage renal disease, on peritoneal dialysis. 2. Chronic systolic heart failure, ejection fraction 30%-35% range, followed by Dr. Mcdaniel. 3. Diabetes mellitus, type 2. 4. Hypothyroidism. 5. Obesity. 6. Hyperlipidemia. 7. Hypertension. 8. Chronic anemia of renal disease. 9. Secondary hyperparathyroidism. PAST SURGICAL HISTORY: 1. Dialysis access. 2. Automatic implantable cardioverter-defibrillator placement. 3. Right ankle surgery. 4. Hysterectomy. 5. Appendectomy. 6. Toe amputation. ALLERGIES: No known drug allergies. CURRENT HOME MEDICATIONS: Tylenol as needed, aspirin 81 mg daily, Lipitor 80 mg at bedtime, Calcitriol 0.25 mg daily, calcium acetate 2668 mg 3 times daily, Tums 800 mg at bedtime, carvedilol 50 mg b.i.d., vitamin D3 daily, hydralazine 25 mg 3 times a day, Humulin 70/30 30 units b.i.d., isosorbide dinitrate 10 mg b.i.d., Synthroid 25 mcg daily, lisinopril 20 mg b.i.d., multivitamin daily, Renvela 800 mg 3 times daily, Coumadin 5 mg every day and 2.5 mg on Tuesdays and . ALLERGIES: No known drug allergies. SOCIAL HISTORY: This patient currently lives at home with her family. She denies any current use of smoking, alcohol, or drug use. She is not compliant with salt and fluid restriction. FAMILY HISTORY: The patient denies any heart disease or bleeding disorders in her family. REVIEW OF SYSTEMS: The following complete review of systems was negative, unless otherwise mentioned in the HPI or below: Constitutional: Weight loss or gain, ability to conduct usual activities. Skin: Rash, itching. Eyes: Double vision, pain. ENT/Mouth: Nose bleeding, neck stiffness, pain, tenderness. Cardiovascular: Palpitations, dyspnea on exertion, orthopnea. Respiratory: Shortness of breath, wheezing, cough, hemoptysis, fever, or night sweats. Gastrointestinal: Poor appetite, abdominal pain, heartburn, nausea, vomiting, constipation, or diarrhea. Genitourinary: Urgency, frequency, dysuria, nocturia. Musculoskeletal: Pain, swelling. Neurologic/Psychiatric: Anxiety, depression. Allergy/Immunologic: Skin rash, bleeding tendency. PHYSICAL EXAMINATION: VITAL SIGNS: As discussed above. GENERAL: A 52-year-old female in no apparent distress. Abdominal discomfort is improving. HEENT: Head is atraumatic, normocephalic. Sclerae are anicteric. Moist mucous membranes. No oral lesion. NECK: Supple. No JVD appreciated. No carotid bruit. LUNGS: Clear to auscultation bilaterally. No wheezing, rales, or rhonchi. HEART: S1 and S2 present. Regular rate and rhythm. No rubs or gallops appreciated. No significant murmurs appreciated. ABDOMEN: Soft, mild tenderness over the epigastric region and the right upper quadrant region. No rebound or guarding and no costovertebral angle tenderness. EXTREMITIES: A 2+ edema in bilateral lower extremities. No calf tenderness. SKIN: Warm and dry. LYMPH NODES: No palpable lymph nodes in the neck. PERIPHERAL VASCULAR: Radial pulses palpable bilaterally. MUSCULOSKELETAL: No joint swelling or tenderness. LABORATORY FINDINGS: CBC showed WBC 6.6, hemoglobin 9.3, hematocrit 26.8, platelets 186. INR 1.0. Chemistries showed sodium 133, potassium 3.2, chloride 95, bicarbonate 25, BUN 44, creatinine 8.32, glucose of 713. Troponin of 0.051. BNP 556. Albumin 3.1. Urinalysis showed 21-50 wbcs with 1+ bacteria. EKG, by my review, as discussed above. Chest x-ray, by my review, was negative for infiltrate or significant edema. IMPRESSION: 1. Hypertensive urgency, probably secondary to medication noncompliance. 2. Abdominal discomfort, rule out secondary bacterial peritonitis. Patient had extensive workup recently which was negative. 3. Chronic systolic heart failure, ejection fraction 30%-35%. class C 4. Diabetes mellitus, type 2, uncontrolled with blood sugar of 713. 5. Elevated troponins, probably secondary to uncontrolled hypertension. 6. Electrolyte abnormalities. The patient has hyponatremia and hypokalemia. 7. Chronic anemia of renal insufficiency. 8. Hypothyroidism. 9. Hyperlipidemia. 10. End-stage renal disease on peritoneal dialysis. 11. Chronic anticoagulation for history of deep venous thrombosis in the past. INR is subtherapeutic. 12. Secondary hyperparathyroidism. PLAN: The patient will be monitored as an observation on telemetry unit. Serial troponins will be done. We will consult Dr. Stephens for peritoneal dialysis management. We will also give her 1 dose of Lasix and resume her home medications, which were confirmed. The patient was extensively counseled to be compliant with all of her medications. We will rule out peritonitis. We will also send urine culture for suspected urinary tract infection. We will start her on IV ceftriaxone as well. We will start her on insulin with NPH 20 units b.i.d. with sliding scale. Plan of care was discussed with the patient in detail. She stated understanding. We will also resume Coumadin. The patient states that she takes Coumadin on a daily basis. She will be placed on low vitamin K diet along with Renal and heart healthy/diabetic diet. [facility]
[2017-08-01] MEDS ORDERED: Senokot 8.6 MG TAB PO PRN (15:36)
[2017-08-01] MEDS ORDERED: Nitroglycerin 0.4 MG TAB (25 Tab Bottle) PO PRN (15:36)
[2017-08-01] MEDS ORDERED: NPH, Human Insulin Isophane 300 UNIT/3 ML VIAL SC SCH ×3 (15:36→21:00)
[2017-08-01] MEDS ORDERED: hydrALAZINE 20 MG/ML VIAL SLOW IVP PRN (15:36)
[2017-08-01] MEDS ORDERED: Dextrose 5% in Water 1,000 ML IV PRN (15:36)
[2017-08-01] MEDS ORDERED: Calcium Carbonate 500 MG ChewTAB PO PRN (15:36)
[2017-08-01] MEDS ORDERED: Furosemide 100 MG/10 ML VIAL SLOW IVP SCH (15:36)
[2017-08-01] MEDS ORDERED: Dextrose 50% Abboject 50 ML SYRINGE SLOW IVP PRN (15:36)
[2017-08-01] MEDS ORDERED: Potassium Chloride 20 MEQ TAB PO SCH (15:36)
[2017-08-01 15:44] VITALS: BMI 51.7
[2017-08-01] MEDS ORDERED: hydrALAZINE 25 MG TAB PO SCH (16:00)
[2017-08-01] MEDS ORDERED: cefTRIAXone\\ROCEPHIN 1 GM in Sodium Chloride 0.9% 100 ML IVPB SCH (16:00)
[2017-08-01] MEDS ORDERED: diphenhydrAMINE 25 MG CAP PO PRN (16:04)
[2017-08-01 16:20] LABS: Troponin I 0.067 ng/mL (< 0.028)
[2017-08-01] MEDS: Insulin Regular 300 UNITS/3 ML VIAL SC PRN ×2 (16:47→20:45)
[2017-08-01] MEDS: Carvedilol 25 MG TAB PO SCH (16:55)
[2017-08-01] MEDS: Sevelamer Carbonate 800 MG TAB PO SCH (16:55)
[2017-08-01] MEDS: Calcium Acetate 667 MG CAP PO SCH (16:55)
[2017-08-01] MEDS ORDERED: Acetaminophen 500 MG TAB PO SCH (17:00)
[2017-08-01] MEDS ORDERED: Warfarin Sodium 5 MG TAB PO SCH (17:00)
[2017-08-01] MEDS ORDERED: Acetaminophen 500 MG TAB PO PRN (18:30)
[2017-08-01] MEDS ORDERED: Ondansetron HCl/PF 4 MG/2 ML Vial IVP PRN (18:48)
[2017-08-01] MEDS ORDERED: Ondansetron ODT 4 MG TAB PO PRN (18:48)
[2017-08-01] MEDS: Nitroglycerin 2% Ointment 1 INCH/1 GM Packet TOP SCH (19:41)
[2017-08-01] MEDS: Lisinopril 20 MG TAB PO SCH (19:42)
[2017-08-01] MEDS: Docusate 100 MG CAP PO SCH (19:43)
[2017-08-01] MEDS: hydrALAZINE 25 MG TAB PO SCH (19:44)
[2017-08-01] MEDS: Isosorbide Dinitrate 5 MG TAB PO SCH (19:44)
[2017-08-01] MEDS: NPH, Human Insulin Isophane 300 UNIT/3 ML VIAL SC SCH (20:44)
[2017-08-01] MEDS ORDERED: Atorvastatin Calcium 40 MG TAB PO SCH (21:00)
[2017-08-01] MEDS ORDERED: Calcium Carbonate 500 MG ChewTAB PO SCH (21:00)
[2017-08-01] MEDS ORDERED: Famotidine 20 MG TAB PO SCH (21:00)
[2017-08-01] MEDS ORDERED: Nitroglycerin 2% Ointment 1 INCH/1 GM Packet TOP PRN (21:00)
[2017-08-02] MEDS ORDERED: cefTRIAXone\\ROCEPHIN 1 GM in Sodium Chloride 0.9% 100 ML IVPB SCH (01:00)
[2017-08-02] MEDS: Insulin Regular 300 UNITS/3 ML VIAL SC PRN ×3 (01:37→11:30)
[2017-08-02 05:08] LABS: #Basophils 0.1 thou/uL (0.0-0.2); #Eosinphils 0.1 thou/uL (0.0-0.7); #Lymphocytes 1.4 thou/uL (1.20-3.40); #Monocytes 0.5 thou/uL (0.11-0.59); #Neutrophils 4.3 thou/uL (1.40-6.50); %Eosinophils 0.9 % (0.0-10.0); %Lymphocytes 21.3 % (21.0-51.0); %Monocytes 8.3 % (0.0-10.0); %Neutrophils 68.6 % (42.0-75.0); Hemoglobin 8.1 g/dL (12.0-16.0); Mean Corpuscular HGB CONC 35.2 g/dL (32.0-36.0); Mean Corpuscular Hemoglobin 31.5 pg (27.0-31.0); Mean Corpuscular Volume 89.5 fl (81.0-99.0); Mean Platelet Volume 9.3 fL (7.4-10.4); Platelet Count 166 thou/uL (130-400); RBC Distribution Width 12.5 % (11.5-14.5); Red Blood Cell (RBC) Count 2.56 mill/uL (4.20-5.40); White Blood Cell (WBC) Count 6.3 thou/uL (4.8-10.8)
[2017-08-02] MEDS: Acetaminophen 325 MG TAB PO PRN ×2 (05:09→11:52)
[2017-08-02] MEDS: Nitroglycerin 2% Ointment 1 INCH/1 GM Packet TOP SCH (05:23)
[2017-08-02 05:24] LABS: Anion Gap 13 mmol/L (10-20); BUN (Urea Nitrogen) 46 mg/dL (9.8-20.1); Calc. Creatinine Clearance 16 mL/min (70-130); Calcium 7.9 mg/dL (7.8-10.44); Carbon Dioxide 28 mmol/L (22-29); Chloride 101 mmol/L (98-107); Estimated GFR-MDRD 5; Glucose 295 mg/dL (70-105); Potassium 3.1 mmol/L (3.5-5.1); Sodium 139 mmol/L (136-145)
[2017-08-02] MEDS ORDERED: Levothyroxine Sodium 25 MCG TAB PO SCH (06:00)
[2017-08-02 07:43] VITALS: TEMP 98.5
[2017-08-02] MEDS: Calcium Acetate 667 MG CAP PO SCH ×2 (08:18→11:28)
[2017-08-02] MEDS: Sevelamer Carbonate 800 MG TAB PO SCH ×2 (08:18→11:29)
[2017-08-02] MEDS: Carvedilol 25 MG TAB PO SCH (08:18)
[2017-08-02] MEDS ORDERED: Potassium Chloride 20 MEQ TAB PO SCH (08:30)
[2017-08-02] MEDS ORDERED: Calcitriol 0.25 MCG CAP PO SCH (09:00)
[2017-08-02] MEDS ORDERED: Aspirin 325 MG TAB PO SCH (09:00)
[2017-08-02] MEDS ORDERED: Prenatal Vitamin 1 TAB PO SCH (09:00)
--- NOTE | 2017-08-02 09:11 | PRG ---
DATE OF SERVICE: 08/02/2017 SUBJECTIVE: According to the patient, she went to the ER complaining of some neck pain with radiation to the left upper extremity where she also mentioned in passing some abdominal discomfort. She denies any changes in her PD fluid. We were now being consulted for her maintenance peritoneal dialysis. REVIEW OF SYSTEMS: Positive for neck pain with radiation to the left upper extremity. No chest pain. No shortness of breath. No nausea, no vomiting, no fever or chills. Mild abdominal pain, no nausea, no diarrhea or constipation. No gross hematuria, no dysuria, no urinary frequency. Appetite and energy level is fair. No headache, no diplopia, no sore throat, occasional joint pains. MEDICATIONS: Includes the following; Tylenol 500 mg daily as needed, atorvastatin 80 mg at bedtime, calcitriol 0.5 mcg 3 times per week, calcium acetate 667 mg 3 tabs t.i.d. with meals, carvedilol 25 mg tab b.i.d., isosorbide dinitrate 20 mg b.i.d., levothyroxine 25 mcg every day, lisinopril 20 mg tab once a day, Reglan 5 mg t.i.d. before meals, vitamin D3 5000 international units daily, and Coumadin as directed. PHYSICAL EXAMINATION: VITAL SIGNS: Blood pressure is noted at 136/64, heart rate 71, respiratory rate 20, temperature 98.5, pulse ox 93%. GENERAL: Noted to be awake, comfortable, not in distress. SKIN: Adequate turgor. HEENT: Slightly pale conjunctivae, anicteric sclerae. NECK: No neck mass, no carotid bruits, no JVD. CHEST: No deformities. LUNGS: Clear breath sounds, no wheezing, no crackles. HEART: Normal sinus rhythm. No murmurs, no gallops, no rubs. ABDOMEN: Globular, soft, nontender, no masses. Positive for PD catheter. EXTREMITIES: Trace edema. LABORATORY DATA: Laboratories of 08/02/2017; white count 6.3, hemoglobin 8.1, hematocrit 22.9. Sodium 139, potassium 3.1, chloride 101, carbon dioxide 28, BUN 46, creatinine 8.20, glucose 295, and calcium 7.9. IMAGING DATA: On 08/01/2017, chest x-ray shows cardiomegaly with left AICD. There are mild increased lung markings. ASSESSMENT AND PLAN: 1. Neck pain with radiation to the left upper extremity - consider DJD. Continue supportive care. If needed, we can image the cervical spine. 2. End-stage renal disease, stable. Tolerating current peritoneal dialysis. No changes will be made with their current peritoneal dialysis. Please note that her PD fluid was noted to be clear. 3. Anemia. Start Epogen 10,000 units subcutaneously every week. Recheck base met and CBC in a.m. MTDD
[2017-08-02] MEDS: Docusate 100 MG CAP PO SCH (09:34)
[2017-08-02] MEDS: hydrALAZINE 25 MG TAB PO SCH (09:34)
[2017-08-02] MEDS: NPH, Human Insulin Isophane 300 UNIT/3 ML VIAL SC SCH (09:35)
[2017-08-02] MEDS: Lisinopril 20 MG TAB PO SCH (09:35)
[2017-08-02] MEDS: Isosorbide Dinitrate 5 MG TAB PO SCH (09:35)
[2017-08-02 11:25] VITALS: BP 120/57
[2017-08-02] MEDS ORDERED: Epoetin (ESRD) 10,000 UNITS/ML VIAL SC SCH (12:00)
[2017-08-02 12:26] LABS: BF Color Colorless; Body Fluid Source PERITONEAL FLUID; Clarity Clear (Clear)
[2017-08-02 12:27] LABS: BF RBC Count - Manual 3 /cumm; BF WBC/Nonhematics Ct. - Manua 7 /cumm; Tube # EDTA
--- NOTE | 2017-08-02 20:04 | DIS ---
DATE OF DISCHARGE: 08/02/2017 DISCHARGE DISPOSITION: Home. FOLLOWUP: 1. Follow up with primary care physician at [facility] in 1 week. 2. Follow up with Dr. Stephens for peritoneal dialysis. 3. Follow up with GI clinic with Dr. Carlos Parr in 1-2 weeks. Patient was advised to call GI Clinic for appointment. 4. Please follow up with Warfarin Clinic in 2 days. Patient was advised to be compliant with all of her medications. 1. Repeat labs after 1 week is recommended. Primary care physician advised to follow. BRIEF HOSPITAL COURSE: The patient is a 52-year-old female with end-stage renal disease on peritonea l dialysis, chronic systolic heart failure, status post AICD, diabetes mellitus type 2, hypertension, and hyperlipidemia who presented to the hospital with abdominal discomfort. Please refer to the his tory and physical dated 08/01/2017 for further details. The patient was admitted to the hospital with a diagnosis of hypertensive urgency with uncontrolled d iabetes with blood sugar of 713 and abdominal discomfort. Her abdominal discomfort improved overnigh t. Possibilities include gastroparesis versus GERD/peptic ulcer disease. Secondary bacterial perito nitis has been ruled out with Gram stain. Peritoneal fluid cultures have also been sent. Dr. Stephens wi ll follow up on the results. Her blood pressure and blood sugar stabilized on her home regimen. INR was 1.0. Patient was extensively counseled to take all of her medications including insulin and Cou madin. Patient stated understanding. On the day of discharge, she appears comfortable and abdominal discomfort has almost resolved. Dr. Stephens is also cleared her for discharge. Again, compliance with medications was emphasized. FINAL DIAGNOSES: 1. Hypertensive urgency, resolved. 2. Abdominal discomfort improved, probably secondary to peptic ulcer disease/gastroesophageal reflux disease. She was advised to start on [id number] Prilosec. GI followup as an outpatient is re commended. 3. Chronic systolic heart failure, ejection fraction 30-35%. 4. Diabetes mellitus type 2. 5. Elevated troponins in the indeterminate range, probably secondary to uncontrolled hypertension. 6. Hyponatremia. 7. Hypokalemia. 8. Chronic anemia of renal insufficiency. 9. Hypothyroidism. 10. Hyperlipidemia. 11. End-stage renal disease, on peritoneal dialysis. 12. Chronic anticoagulation for history of deep venous thrombosis in the past. INR was subtherapeut ic. 14. Secondary hyperparathyroidism. Plan of care was discussed with the patient in detail. She stated understanding.
[2017-08-03] MEDS ORDERED: Warfarin Sodium 2.5 MG TAB PO SCH (17:00)
== END 2017-08-02 14:01 | disposition home or self-care (01) ==
LOC: ERS 09:26 → 2SW 15:33
PROVIDERS: ADMIT Internal Medicine; ATTEND Internal Medicine
DX: R10.9 Unspecified abdominal pain (principal); I16.0 Hypertensive urgency; I13.2 Hypertensive heart and chronic kidney disease with heart failure and with stage 5 chronic kidney disease, or end stage renal disease; E11.22 Type 2 diabetes mellitus with diabetic chronic kidney disease; N18.6 End stage renal disease; I50.22 Chronic systolic (congestive) heart failure; D63.1 Anemia in chronic kidney disease; N25.81 Secondary hyperparathyroidism of renal origin; E03.9 Hypothyroidism, unspecified; E78.5 Hyperlipidemia, unspecified; E11.65 Type 2 diabetes mellitus with hyperglycemia; R79.1 Abnormal coagulation profile; E87.6 Hypokalemia; E87.1 Hypo-osmolality and hyponatremia; R79.89 Other specified abnormal findings of blood chemistry; Z86.718 Personal history of other venous thrombosis and embolism; Z99.2 Dependence on renal dialysis; Z79.82 Long term (current) use of aspirin; Z79.4 Long term (current) use of insulin; Z79.01 Long term (current) use of anticoagulants; Z79.899 Other long term (current) drug therapy; Z95.810 Presence of automatic (implantable) cardiac defibrillator
CPT/HCPCS: 71045; 80048; 80053; 82550; 82553; 82962 ×2; 83690; 83880; 84484 ×2; 85025 ×2; 85610; 87070; 87086; 87205; 89051; 93005; 94760; 96365; 96375 ×2; 96376; 99285; G0257; G0378; Q4081; 36415; 36416; 81003; 81015; 90945; 96361; 96374; J0360; J0696; J1815; J1940; J7050; Q0162

== ENCOUNTER 2017-08-25 18:37 | Emergency (ER) | payer MEDICARE, MEDICAID ==
[2017-08-25] MEDS ORDERED: Albuterol Sulfate 2.5 mg/3 ml Neb ONE (19:18)
[2017-08-25 19:32] LABS: #Eosinphils 0.2 thou/uL (0.0-0.7); #Lymphocytes 1.1 thou/uL (1.20-3.40); #Monocytes 0.5 thou/uL (0.11-0.59); #Neutrophils 5.5 thou/uL (1.40-6.50); %Basophils 0.1 % (0.0-1.0); %Eosinophils 2.1 % (0.0-10.0); %Lymphocytes 15.1 % (21.0-51.0); %Monocytes 6.3 % (0.0-10.0); %Neutrophils 76.3 % (42.0-75.0); Hemoglobin 9.2 g/dL (12.0-16.0); Mean Corpuscular HGB CONC 33.9 g/dL (32.0-36.0); Mean Corpuscular Hemoglobin 32.3 pg (27.0-31.0); Mean Corpuscular Volume 95.2 fL (78.0-98.0); Platelet Count 187 thou/uL (130-400); RBC Distribution Width 14.3 % (11.5-14.5); Red Blood Cell (RBC) Count 2.84 mill/uL (4.20-5.40); White Blood Cell (WBC) Count 7.3 thou/uL (4.8-10.8)
[2017-08-25 19:53] LABS: ALT (SGPT) 17 U/L (8-55); AST (SGOT) 15 U/L (5-34); Albumin 3.2 g/dL (3.5-5.0); Alkaline Phosphatase 89 U/L (40-150); Anion Gap 20 mmol/L (10-20); BUN (Urea Nitrogen) 86 mg/dL (9.8-20.1); Bilirubin, Total 0.5 mg/dL (0.2-1.2); CK (CPK) 562 U/L (29-168); Calc. Creatinine Clearance 0 mL/min (70-130); Calcium 7.6 mg/dL (7.8-10.44); Carbon Dioxide 25 mmol/L (22-29); Chloride 104 mmol/L (98-107); Estimated GFR-MDRD 4; Globulin 3.3 g/dL (2.4-3.5); Glucose 139 mg/dL (70-105); Potassium 4.6 mmol/L (3.5-5.1); Protein, Total 6.5 g/dL (6.0-8.3); Sodium 144 mmol/L (136-145)
[2017-08-25 19:58] LABS: Troponin I 0.037 ng/mL (< 0.028)
[2017-08-25 20:05] LABS: CKMB 8.2 ng/mL (0-6.6)
--- NOTE | 2017-08-25 21:04 | RAD ---
RADIOGRAPH CHEST 1 VIEW: Date: 08/25/17 Time: 7:15 p.m. HISTORY: 52-year-old female with bilateral lower extremity swelling and edema. COMPARISON: 08/01/17 FINDINGS: There is cardiomegaly. Single lead left subclavian AICD. Pulmonary vascular engorgement. No alyssa pul monary edema. No consolidation or pneumothorax. The lateral costophrenic angles are sharp. No major i nterval change. IMPRESSION: 1. Cardiomegaly and mild pulmonary vascular congestion. 2. Automatic implantable cardioverter-defibrillator. MYNOR [] POS: BIBIANA
--- NOTE | 2017-08-28 13:27 | EKG ---
Test Reason : Blood Pressure : / mmHG Vent. Rate : 086 BPM Atrial Rate : 086 BPM P-R Int : 146 ms QRS Dur : 076 ms QT Int : 404 ms P-R-T Axes : 022 020 065 degrees QTc Int : 483 ms Normal sinus rhythm Prolonged QT Abnormal ECG Confirmed by ERWIN TRENT ([id number]), publications editor AIDEN BETTENCOURT ([id number]) on 08/28/2017 1:27:29 PM Referred By: Confirmed By:ERWIN TRENT
== END 2017-08-25 21:04 | disposition home or self-care (01) ==
LOC: ERS 18:37
DX: R60.0 Localized edema (principal); E78.5 Hyperlipidemia, unspecified; E66.9 Obesity, unspecified; I12.0 Hypertensive chronic kidney disease with stage 5 chronic kidney disease or end stage renal disease; E11.22 Type 2 diabetes mellitus with diabetic chronic kidney disease; N18.6 End stage renal disease; E03.9 Hypothyroidism, unspecified; D64.9 Anemia, unspecified
CPT/HCPCS: 36415; 71045; 80053; 82553; 83880; 84484; 85025; 93005; 94640; J7611

== ENCOUNTER 2017-08-29 19:38 | Inpatient (IN) | payer MEDICARE, MEDICAID ==
[2017-08-29 20:51] LABS: #Lymphocytes 0.8 thou/uL (1.20-3.40); #Monocytes 0.6 thou/uL (0.11-0.59); #Neutrophils 5.1 thou/uL (1.40-6.50); %Basophils 0.2 % (0.0-1.0); %Eosinophils 0.4 % (0.0-10.0); %Monocytes 9.1 % (0.0-10.0); %Neutrophils 78.3 % (42.0-75.0); Mean Corpuscular HGB CONC 33.9 g/dL (32.0-36.0); Mean Corpuscular Hemoglobin 32.2 pg (27.0-31.0); Platelet Count 195 thou/uL (130-400); RBC Distribution Width 14.1 % (11.5-14.5); Red Blood Cell (RBC) Count 2.79 mill/uL (4.20-5.40); White Blood Cell (WBC) Count 6.5 thou/uL (4.8-10.8)
[2017-08-29 21:11] LABS: ALT (SGPT) 16 U/L (8-55); AST (SGOT) 14 U/L (5-34); Albumin 3.1 g/dL (3.5-5.0); Alkaline Phosphatase 61 U/L (40-150); Anion Gap 20 mmol/L (10-20); BUN (Urea Nitrogen) 75 mg/dL (9.8-20.1); Bilirubin, Total 0.5 mg/dL (0.2-1.2); Calc. Creatinine Clearance 0 mL/min (70-130); Calcium 7.6 mg/dL (7.8-10.44); Carbon Dioxide 26 mmol/L (22-29); Chloride 97 mmol/L (98-107); Estimated GFR-MDRD 4; Globulin 3.8 g/dL (2.4-3.5); Glucose 96 mg/dL (70-105); Lipase 18 U/L (8-78); Potassium 3.8 mmol/L (3.5-5.1); Protein, Total 6.9 g/dL (6.0-8.3); Sodium 139 mmol/L (136-145)
[2017-08-29 21:24] LABS: Yeast-AUWi Flag 18.5 (0-25.0)
[2017-08-29 21:25] LABS: Bilirubin Small (Negative); Blood, Urine Moderate (Negative); Clarity TURBID (Clear); Glucose, Urine (Dipstick) 250 mg/dL (Negative); Leukocyte Small (Negative); Nitrite Negative (Negative); Protein, Urine (Dipstick) > or equal to 300 mg/dL (Neg-Trace); Specific Gravity, Urine 1.024 (1.002-1.036); Urobilinogen 0.2 mg/dL (0.2-1.0); pH, Urine 5.5 (5.0-9.0)
[2017-08-29 21:28] LABS: Hyaline Casts/LPF NONE SEEN LPF (0-3 Hyaline)
[2017-08-29 21:29] LABS: Bacteria/HPF 1+ HPF (None Seen); Other Microscopic Description Less than 2 mL rec'd
[2017-08-29] MEDS ORDERED: Cefepime 2 GM VIAL ONE (21:36)
--- NOTE | 2017-08-29 22:23 | CT ---
CT ABDOMEN AND PELVIS WITHOUT CONTRAST: INDICATIONS: Abdominal pain. The patient performs peritoneal dialysis. COMPARISON: Recent CT of 07/07/2017. TECHNIQUE: Multiple axial tomograms are obtained through the abdomen and pelvis without IV enhancement. FINDINGS: The lung bases appear clear. A small amount of free intraperitoneal air is again noted. This was described on the prior exam and is presumably secondary to peritoneal dialysis. A peritoneal dialysis catheter enters via the right lower quadrant and is curled within the left lower quadrant. The liver, spleen, and pancreas appear unremarkable. The adrenal glands and kidneys are unremarkable. No hydronephrosis. Small bowel loops appear normal . The colon is unremarkable. The aorta is of normal caliber. No significant free fluid in the abdo men or pelvis. No mass identified. IMPRESSION: No evidence of acute process. POS: AGW
[2017-08-29] MEDS ORDERED: hydrALAZINE 20 MG/ML VIAL ONE (23:03)
[2017-08-30 00:56] VITALS: BMI 53.0
[2017-08-30] MEDS ORDERED: Ondansetron ODT 4 MG TAB PO PRN (01:30)
--- NOTE | 2017-08-30 01:47 | PDOC.FPRHP ---
- History of Present Illness Chief Complaint: abdominal pain History of Present Illness: Pt presents with abdominal pain that started yesterday. Pain is crampy, 9/10, located in the LLQ. Pt reports abdomen is TTP in LLQ and epigastric areas. She has never experienced this pain before. On PD daily, last treatment was yesterday evening. Reports fever/chills, increased LE swelling and SOB on exertion. Patient's daughter also endorses that this morning was cloudier than normal and they were told by nephrology that if this occurred she should seek medical attention. - Allergies/Adverse Reactions Allergies Allergy/AdvReac Type Severity Reaction Status Date / Time No Known Allergies Allergy Verified 10/23/15 22:04 - Home Medications Medication Instructions Recorded Confirmed Type Levothyroxine Sodium [Synthroid] 25 mcg PO 0600 #0 tab 04/01/14 08/30/17 Rx Atorvastatin Calcium [Lipitor] 80 mg PO HS 03/04/15 08/30/17 History Carvedilol [Coreg] 50 mg PO BID- 03/23/15 08/30/17 History Calcitriol [Rocaltrol] 0.25 mcg PO DAILY 04/09/16 08/30/17 History Sevelamer Carbonate [Renvela] 800 mg PO TID- 04/09/16 08/30/17 History Calcium Acetate 2,668 mg PO TID- 07/07/17 08/30/17 History Calcium Carbonate [Tums Ultra] 800 mg PO HS 07/07/17 08/30/17 History Cholecalciferol (Vitamin D3) 5,000 unit PO DAILY 07/07/17 08/30/17 History [Vitamin D3] Isosorbide Dinitrate [Isordil] 10 mg PO BID 07/07/17 08/30/17 History Lisinopril [Zestril] 20 mg PO BID tab 07/08/17 08/30/17 Rx hydrALAZINE [Apresoline] 25 mg PO TID tab 07/08/17 08/30/17 Rx Apixaban [Eliquis] 2.5 mg PO DAILY 08/30/17 08/30/17 History Gabapentin 300 mg PO BID 08/30/17 08/30/17 History Insulin Aspart [Novolog] 6 unit SQ DAILY 08/30/17 08/30/17 History Insulin Glargine,Hum.Rec.Anlog 90 unit SQ [facility] 08/30/17 08/30/17 History [Harley Duarte] Omeprazole [Omeprazole] 20 mg PO [facility] 08/30/17 08/30/17 History - History PMHx:ESRD on PD, HTN, T2DM on insulin, atrial fibrillation, obesity, HLD, peripheral neuropathy, CHF w/ AICD PSHx: Hysterectomy, Appendectomy, R toe amputated, heart defibrillator FHx: DM in multiple family members Social: Denies tobacco, alcohol, or drug use. Lives with daughter. - Review of Systems General: reports: fever/chills. denies: fatigue Eyes: denies: eye pain, vision changes ENT: denies: nasal congestion, rhinorrhea Respiratory: reports: shortness of breath, exercise intolerance. denies: cough Cardiovascular: reports: edema. denies: chest pain Gastrointestinal: reports: diarrhea, abdominal pain, GI bleeding. denies: nausea, vomiting, constipation Genitourinary: denies: incontinence, dysuria Skin: denies: rashes, lesions Musculoskeletal: denies: pain, tenderness Neurological: denies: numbness, weakness Psychological: denies: anxiety, depression - Vital signs BP: [132/83] HR: [80] RR: [22] Tmax: [] Pox: []% on [] Wt: [135.76] - Physical Exam Constitutional: awake, alert and oriented, other (obese) HEENT: normocephalic and atraumatic, PERRLA, EOMI, TM's clear and intact, MMM Neck: supple, trachea midline, no JVD, no thyromegaly Heart: RRR, normal S1/S2, pulses present -Heart: 1+ pitting edema to mid evans b/l Lungs: CTAB, no respiratory distress Abdomen: soft, bowel sounds present -Abdomen: RLQ PD site clean and dry. TTP LLQ and epigastric areas Musculoskeletal: normal structure, normal tone Neurological: no focal deficit, normal sensation Skin: no rash/lesions, capillary refill <2 seconds Heme/Lymphatic: no petechia -Heme/Lymphatic: bruising on R thigh Psychiatric: normal mood and affect, good judgment and insight FMR H&P: Results - Labs Result Diagrams: 08/30/17 15:15 08/30/17 03:16 Lab results: WBC 6.5 thou/uL (4.8-10.8) 08/29/17 20:46 Hgb 9.0 g/dL (12.0-16.0) L 08/29/17 20:46 Hct 26.5 % (36.0-47.0) L 08/29/17 20:46 MCV 95.0 fL (78.0-98.0) 08/29/17 20:46 Plt Count 195 thou/uL (130-400) 08/29/17 20:46 Neutrophils % 78.3 % (42.0-75.0) H 08/29/17 20:46 Sodium 139 mmol/L (136-145) 08/29/17 20:46 Potassium 3.8 mmol/L (3.5-5.1) 08/29/17 20:46 Chloride 97 mmol/L (98-107) L 08/29/17 20:46 Carbon Dioxide 26 mmol/L (22-29) 08/29/17 20:46 BUN 75 mg/dL (9.8-20.1) H 08/29/17 20:46 Creatinine 9.70 mg/dL (0.6-1.1) H 08/29/17 20:46 Glucose 96 mg/dL (70-105) 08/29/17 20:46 Lactic Acid 1.4 mmol/L (0.5-2.2) 08/29/17 20:46 Calcium 7.6 mg/dL (7.8-10.44) L 08/29/17 20:46 Total Bilirubin 0.5 mg/dL (0.2-1.2) 08/29/17 20:46 AST 14 U/L (5-34) 08/29/17 20:46 ALT 16 U/L (8-55) 08/29/17 20:46 Alkaline Phosphatase 61 U/L (40-150) 08/29/17 20:46 Serum Total Protein 6.9 g/dL (6.0-8.3) 08/29/17 20:46 Albumin 3.1 g/dL (3.5-5.0) L 08/29/17 20:46 Lipase 18 U/L (8-78) 08/29/17 20:46 Urine Ketones Negative mg/dL (Negative) 08/29/17 21:18 Urine Blood Moderate (Negative) H 08/29/17 21:18 Urine Nitrite Negative (Negative) 08/29/17 21:18 Ur Leukocyte Esterase Small (Negative) H 08/29/17 21:18 Urine RBC 4-6 HPF (0-3) 08/29/17 21:18 Urine WBC Greater Than 50-TNTC HPF (0-3) H 08/29/17 21:18 Ur Squamous Epith Cells 11-20 HPF (0-3) H 08/29/17 21:18 Urine Bacteria 1+ HPF (None Seen) H 08/29/17 21:18 - Radiology Interpretation CT scan - abdomen Additional comment: no acute changes FMR H&P: A/P - Problem List (1) Abdominal pain Current Visit: Yes Status: Acute Code(s): R10.9 - UNSPECIFIED ABDOMINAL PAIN Qualifiers: Abdominal location: left lower quadrant Qualified Code(s): R10.32 - Left lower quadrant pain (2) CHF (congestive heart failure) Current Visit: Yes Status: Acute Code(s): I50.9 - HEART FAILURE, UNSPECIFIED (3) Melena Current Visit: Yes Status: Acute Code(s): K92.1 - MELENA (4) UTI (urinary tract infection) Current Visit: Yes Status: Acute Qualifiers: Urinary tract infection type: acute cystitis Hematuria presence: with hematuria Qualified Code(s): N30.01 - Acute cystitis with hematuria (5) Anemia Current Visit: Yes Status: Chronic Code(s): D64.9 - ANEMIA, UNSPECIFIED Qualifiers: Other causes of anemia: other cause, not classified Comment: S/P 2u PRBC's, H/H stable currently (6) Chronic anticoagulation Current Visit: Yes Status: Chronic Code(s): Z79.01 - RESIDENTIAL SUBSTANCE ABUSE COUNSELOR (CURRENT) USE OF ANTICOAGULANTS Comment: Chronic Coumadin, INR subtherapeutic with daily monitoring, Goal INR 2-3 (7) DM type 2 (diabetes mellitus, type 2) Current Visit: Yes Status: Chronic Qualifiers: Diabetes mellitus complication status: with kidney complications Diabetes mellitus complication detail: with chronic kidney disease Chronic kidney disease stage: on chronic dialysis Comment: Continue NPH 10u SC BID (8) Dyslipidemia Current Visit: Yes Status: Chronic Code(s): E78.5 - HYPERLIPIDEMIA, UNSPECIFIED (9) Hypertension Current Visit: Yes Status: Chronic Code(s): I10 - ESSENTIAL (PRIMARY) HYPERTENSION Qualifiers: Hypertension type: renovascular hypertension Qualified Code(s): I15.0 - Renovascular hypertension (10) Morbid obesity Current Visit: Yes Status: Chronic Code(s): E66.01 - MORBID (SEVERE) OBESITY DUE TO EXCESS CALORIES (11) A-fib Current Visit: Yes Status: Resolved Code(s): I48.91 - UNSPECIFIED ATRIAL FIBRILLATION Qualifiers: Atrial fibrillation type: chronic Qualified Code(s): I48.2 - Chronic atrial fibrillation Comment: Hx of A-fib with current SR, continue B-michele, Coumadin with INR 1.3 - Plan 52 year old F presenting with abdominal pain and cloudy PD fluid possibly 2/2 SBP and new onset melena. Abdominal pain 2/2 possible SPB -Dr. Stephens consulted in ED. Will plan for dialysis and appropriate fluid studies. -pending Bcx -CT showed no acute process -pain control, morphine x1 given -cefepime, vanc given 08/29. Vanc trough ordered. Cefepime q48h. Melena, FOB+ -Anemia, but hemoglobin at baseline -Follow serial H/H q6h x3 -GI consulted- Dr. Syed to be notified in AM ESRD on PD -consulted nephro, Dr. Stephens HTN -Resume home meds -hydralazine prn UTI -cultures pending -received abx as above T2DM on insulin -resume home dose - Toujeo 90u qam, novolog 6u qac -aggressive sliding scale Hx of atrial fibrillation -on telemetry -will continue home Eliquis CHF w/ AICD -monitor I/Os Ppx: on home Eliquis and omeprazole FMR H&P: Upper Level - Plan Date/Time: 08/30/17 0144 I, Cheri Sarah MD, PGY-3, have evaluated this patient and agree with findings/ plan as outlined by regulatory internship resident. Pertinent changes/additions are listed here.
[2017-08-30] MEDS ORDERED: HumaLOG 300 UNITS/3 ML VIAL SC PRN (01:53)
[2017-08-30] MEDS ORDERED: Dextrose 50% Abboject 50 ML SYRINGE SLOW IVP PRN (01:53)
[2017-08-30] MEDS ORDERED: Dextrose 5% in Water 1,000 ML IV PRN (01:53)
[2017-08-30] MEDS: Acetaminophen 325 MG TAB PO PRN ×2 (03:22→12:11)
[2017-08-30 03:25] LABS: Hemoglobin 7.9 g/dL (12.0-16.0)
[2017-08-30 03:42] LABS: Anion Gap 18 mmol/L (10-20); BUN (Urea Nitrogen) 78 mg/dL (9.8-20.1); Calc. Creatinine Clearance 14 mL/min (70-130); Carbon Dioxide 24 mmol/L (22-29); Chloride 101 mmol/L (98-107); Estimated GFR-MDRD 4; Glucose 79 mg/dL (70-105); Potassium 3.6 mmol/L (3.5-5.1); Sodium 139 mmol/L (136-145)
--- NOTE | 2017-08-30 06:00 | PDOC.EVN ---
Event Note - Event Note Event Note: Pt seen and examined by me on 08/29/2017 @ 1006. Case d/w Dr. Werner. History, exam assessment and plan reviewed and agree with resident's documentation. Briefly this is a 52 yo female with h/o DM, HTN, ESRD on PD, hypothyroidism, HLD , and sCHF (EF=30%) presented c/o abdominal pain x 1 day. Pain located on left lower abdomen. Denies any N/V/D. Decreased appetite. Also noted cloudy effluent after dialysis. Also c/o dark, black stools,PMH/PSH/Meds/SH reviewd and agree with resident's documentation. BP 132/83 P78 T 98.2 RR20 Exam repeated by me significant for tenderness in LLQ; no rebound Labs: WBC=6.5, H/H=9.0/26.5 plt= 185 Tp=255 K==3.8 BUN=75 Cr=9.7 U/A 4+ protein, (+) glucose, modertae blood, WBC>50 1+ bacteria CT abdomen- negative A/P: 1) Abdominal pain- possible peritoneal fluid/catheter infection - Continue IV abx - Blood and urine cultures pending 2) ESRD on PD - Nephrology contacted and will arrange for PD - Will also collect effluient for culture 3) Guiac (+) - check serial H/Hs -GI consulted 4) Type 2 DM - continue home meds
--- NOTE | 2017-08-30 09:09 | PDOC.FM ---
- Subjective Subjective: Patient reports continued abdominal pain this AM. She is having dark black diarrhea. Denies N/V, fever. She has been tolerating PO. She reports the pain is worse in the LLQ and MATTHEW region. - Objective MAR Reviewed: Yes Vital Signs & Weight: Vital Signs (12 hours) Temp Pulse Resp BP BP Pulse Ox 08/30/17 05:23 98.2 F 80 16 125/57 L 95 08/30/17 00:00 98 F 79 22 H 178/79 H 98 Weight Admit Weight 135.76 kg Weight 135.76 kg Result Diagrams: 08/30/17 03:16 08/30/17 03:16 Phys Exam - Physical Examination Constitutional: NAD HEENT: moist MMs Respiratory: no wheezing, no rales, no rhonchi, clear to auscultation bilateral Cardiovascular: RRR, no significant murmur, no rub Gastrointestinal: soft, no distention, positive bowel sounds TTP in MATTHEW and LLQ, no rebound or guarding trace pitting edema in bilateral lower extremities Neurological: normal sensation, moves all 4 limbs Psychiatric: normal affect, A&O x 3 Skin: normal turgor, cap refill <2 seconds Dx/Plan (1) Abdominal pain Code(s): R10.9 - UNSPECIFIED ABDOMINAL PAIN Status: Acute Qualifiers: Abdominal location: left lower quadrant Qualified Code(s): R10.32 - Left lower quadrant pain (2) Melena Code(s): K92.1 - MELENA Status: Acute (3) UTI (urinary tract infection) Status: Acute Qualifiers: Urinary tract infection type: acute cystitis Hematuria presence: with hematuria Qualified Code(s): N30.01 - Acute cystitis with hematuria (4) Anemia Code(s): D64.9 - ANEMIA, UNSPECIFIED Status: Chronic Qualifiers: Other causes of anemia: other cause, not classified (5) Chronic anticoagulation Code(s): Z79.01 - HALF-WAY (CURRENT) USE OF ANTICOAGULANTS Status: Chronic (6) DM type 2 (diabetes mellitus, type 2) Status: Chronic Qualifiers: Diabetes mellitus complication status: with kidney complications Diabetes mellitus complication detail: with chronic kidney disease Chronic kidney disease stage: on chronic dialysis (7) Dyslipidemia Code(s): E78.5 - HYPERLIPIDEMIA, UNSPECIFIED Status: Chronic (8) Hypertension Code(s): I10 - ESSENTIAL (PRIMARY) HYPERTENSION Status: Chronic Qualifiers: Hypertension type: renovascular hypertension Qualified Code(s): I15.0 - Renovascular hypertension (9) Morbid obesity Code(s): E66.01 - MORBID (SEVERE) OBESITY DUE TO EXCESS CALORIES Status: Chronic (10) A-fib Code(s): I48.91 - UNSPECIFIED ATRIAL FIBRILLATION Status: Resolved Qualifiers: Atrial fibrillation type: chronic Qualified Code(s): I48.2 - Chronic atrial fibrillation (11) ESRD (end stage renal disease) Code(s): N18.6 - END STAGE RENAL DISEASE Status: Chronic - Plan Plan: 52 year old F presenting with abdominal pain and cloudy PD fluid possibly 2/2 SBP and new onset melena. Abdominal pain 2/2 possible SBP vs diverticulitis vs PUD -Dr. Stephens consulted in ED, appreciate recs -Will culture dialysis fluid -pending Bcx -CT showed no acute process -cefepime, vanc 08/29. Vanc trough ordered. Cefepime q48h Upper GI Bleed Pt has melena with FOBT + -Anemia, but hemoglobin at baseline -Follow serial H/H q6h x3 -GI consulted- Dr. Syed to be notified in AM -Protonix ESRD on PD -consulted nephro, Dr. Stephens -Continue nightly PD HTN -Resume home meds -hydralazine prn UTI -cultures pending -received abx as above T2DM on insulin -resume home dose - Toujeo 90u qam, novolog 6u qac -aggressive sliding scale Hx of atrial fibrillation -on telemetry -will continue home Eliquis -Will get EKG CHF w/ AICD -monitor I/Os
[2017-08-30 09:28] LABS: Hemoglobin 8.5 g/dL (12.0-16.0)
[2017-08-30] MEDS ORDERED: Epoetin (ESRD) 10,000 UNITS/ML VIAL SC SCH (09:30)
[2017-08-30] MEDS ORDERED: Pantoprazole 40 MG VIAL IVP SCH (09:30)
[2017-08-30] MEDS ORDERED: Epoetin (ESRD) 20,000 UNITS/ML SC SCH (09:30)
[2017-08-30] MEDS: HumaLOG 300 UNITS/3 ML VIAL SC SCH ×3 (09:39→17:52)
[2017-08-30] MEDS: Heparin 5,000 UNITS/ML VIAL SC SCH ×2 (09:40→14:29)
[2017-08-30] MEDS: Insulin Glargine 90 UNITS in Pre-Filled Syringe 1 EACH SC SCH (09:40)
--- NOTE | 2017-08-30 10:26 | PRG ---
DATE OF SERVICE: 08/30/2017 SUBJECTIVE: Ms. Savannah Franco is a 52-year-old female with ESRD and on peritoneal di alysis regimen. Please note that the patient was admitted for abdominal pain. She noted her PD flui d was cloudy. My suspicion is she may have underlying peritonitis. Empiric IV antibiotic has been s tarted. We are waiting for a PD fluid culture to be done at the present time. No other complaints t lori. Still with mild abdominal pain. OBJECTIVE: VITAL SIGNS: Blood pressure is 125/57, heart rate 80, respiratory rate 16, temperature 98.2, pulse o x 95%. GENERAL EXAM: Noted to be awake, supine, comfortable, obese, not in distress. SKIN: Adequate turgor. HEENT: She has a slightly pale conjunctivae, anicteric sclerae. NECK: No neck mass, no carotid bruits, no JVD. CHEST: No deformities. LUNGS: Clear breath sounds. No wheezing, no crackles. HEART: Normal sinus rhythm. No murmur, no gallops, no rubs. ABDOMEN: Globular, soft, no masses. Please note exam of the abdomen showed mild tenderness EXTREMITIES: No edema, no deformities. Medications of 08/30/2017 was reviewed. LABORATORY DATA: Laboratories of 08/30/2017 showed hemoglobin of 7.9. Chemistries showed sodium 139, potassium 3.6, chloride 101, carbon dioxide 25, BUN 78, creatinine 10, glucose 79, calcium 7. ASSESSMENT AND PLAN: 1. Anemia. Start Epogen 10,000 units subcutaneous q. week. 2. Abdominal pain - most likely from peritonitis, currently on IV antibiotics, currently on cefepime . Awaiting peritoneal dialysis fluid culture. 3. End-stage renal disease, stable. We will continue current continuous cycling peritoneal dialysis regimen. We will restart tonight. Agree with current management.
[2017-08-30] MEDS ORDERED: CALCIUM ACETATE PO SCH (12:00)
[2017-08-30] MEDS: Sevelamer Carbonate 800 MG TAB PO SCH ×2 (12:27→17:51)
[2017-08-30] MEDS ORDERED: Vancomycin HCl 750 MG in Sodium Chloride 0.9% 250 ML 250 ML IVPB SCH (12:30)
[2017-08-30] MEDS ORDERED: Vancomycin HCl 1.5 GM in Sodium Chloride 0.9% 250 ML 300 ML IVPB SCH (12:30)
[2017-08-30] MEDS ORDERED: Vancomycin HCl 1 GM in Premix Bag 1 BAG IVPB SCH (12:30)
[2017-08-30] MEDS ORDERED: Vancomycin HCl 1.25 GM in Sodium Chloride 0.9% 250 ML 250 ML IVPB SCH (12:30)
[2017-08-30] MEDS ORDERED: HOLD VANCOMYCIN FOR LEVEL >20 FS SCH (12:30)
[2017-08-30] MEDS ORDERED: Vancomycin Sliding Scale 1 EACH FS SCH (12:30)
[2017-08-30] MEDS: hydrALAZINE 25 MG TAB PO SCH ×2 (14:30→21:41)
[2017-08-30 15:00] LABS: BF Color Yellow; Body Fluid Source PERITONEAL FLUID; Clarity Cloudy/Turbid (Clear); Tube # EDTA; WBC/NonHematic-Auto 8860 /cumm
[2017-08-30 15:01] LABS: BF RBC Count - Manual 161 /cumm
[2017-08-30 15:21] LABS: Hemoglobin 8.5 g/dL (12.0-16.0)
[2017-08-30 16:15] LABS: BF Segmented Neutrophils 80 %; Cell Count Non Hematic 3 %; Eosinophils 6 %; Lymphocytes 6 %
[2017-08-30] MEDS ORDERED: SODIUM CHLORIDE 0.9% IVPB SCH (17:00)
[2017-08-30] MEDS ORDERED: CEFTRIAXONE ROCEPHIN IVPB SCH (17:00)
[2017-08-30] MEDS ORDERED: Gentamicin 80 MG/2 ML VIAL FS SCH (17:30)
[2017-08-30] MEDS: Calcium Acetate 667 MG CAP PO SCH (17:50)
[2017-08-30] MEDS: Carvedilol 25 MG TAB PO SCH (17:51)
[2017-08-30] MEDS: cefTRIAXone\\ROCEPHIN 2 GM in Sodium Chloride 0.9% 100 ML IVPB SCH (18:29)
--- NOTE | 2017-08-30 20:01 | EKG ---
Test Reason : Blood Pressure : / mmHG Vent. Rate : 075 BPM Atrial Rate : 075 BPM P-R Int : 148 ms QRS Dur : 080 ms QT Int : 476 ms P-R-T Axes : 032 021 077 degrees QTc Int : 531 ms Normal sinus rhythm Prolonged QT Nonspecific ST-T changes Confirmed by DR. Americo BURGESS (3) on 08/30/2017 8:00:43 PM Referred By: JAIME Confirmed By:DR. Americo BURGESS
[2017-08-30] MEDS ORDERED: CALCIUM CARBONATE PO SCH (21:00)
[2017-08-30] MEDS: Atorvastatin Calcium 40 MG TAB PO SCH (21:40)
[2017-08-30] MEDS: Lisinopril 20 MG TAB PO SCH (21:40)
[2017-08-30] MEDS: Calcium Carbonate 500 MG ChewTAB PO SCH (21:40)
[2017-08-30] MEDS: Gabapentin 300 MG CAP PO SCH (21:40)
[2017-08-30] MEDS: Pantoprazole 40 MG VIAL IVP SCH (21:41)
[2017-08-31] MEDS: Heparin 5,000 UNITS/ML VIAL SC SCH ×2 (00:51→08:13)
[2017-08-31 05:45] LABS: Vancomycin, Random 23.2 ug/mL (See Comment)
[2017-08-31 05:46] LABS: Anion Gap 19 mmol/L (10-20); BUN (Urea Nitrogen) 69 mg/dL (9.8-20.1); Calc. Creatinine Clearance 16 mL/min (70-130); Carbon Dioxide 24 mmol/L (22-29); Chloride 98 mmol/L (98-107); Estimated GFR-MDRD 5; Glucose 251 mg/dL (70-105); Potassium 3.6 mmol/L (3.5-5.1); Sodium 137 mmol/L (136-145)
[2017-08-31] MEDS: Levothyroxine Sodium 25 MCG TAB PO SCH (06:02)
--- NOTE | 2017-08-31 07:10 | CON ---
DATE OF CONSULTATION: 08/30/2017 REASON FOR CONSULTATION: Hemoccult positive stool. HISTORY OF PRESENT ILLNESS: Ms. Nuñez is a 52-year-old female, who has been admitted to the [facility] secondary to abdominal pain. She has been found to have peritonitis and her dialysis dwell. Arash acevedo presented yesterday evening for evaluation of abdominal pain and also with fever. Her peritoneal f luid has been noted to be cloudy recently. One of the daughters also reports her stools have been bl ack. She is on iron, but this was different than what she has noticed in the past. When asked the p atient where she hurts, she said sometimes in the lower abdomen across the bottom. This has been on and off for several years. She has had some diarrhea recently, which has been dark. PAST MEDICAL HISTORY: The patient was put on peritoneal dialysis for about 18 months, do not have in fection in the past. She has hypertension, hyperlipidemia, end-stage renal disease. She has a histo ry of cardiomyopathy, ejection fraction of 30%, hyperlipidemia, hypothyroidism, diabetes type 2, hype rtension. PAST SURGICAL HISTORY: Orthopedic surgery, removal of great toe and right foot, history of appendect clifford, hysterectomy, right ankle absent, buttocks abscess and placement of PD catheter. She has had a previous upper endoscopy in 2003 for a coffee-ground emesis, which was normal. MEDICATIONS AT HOME: Atorvastatin, calcitriol, calcium, carvedilol, isosorbide, levothyroxine, lisin opril, Reglan, vitamin D, Renvela, gabapentin, Eliquis, Toujeo, omeprazole, and NovoLog. MEDICATIONS HERE: Tylenol, Lipitor, Glucotrol, PhosLo, Tums, Coreg, ceftriaxone, vitamin D, Procrit, Neurontin, gentamicin, heparin, Humalog sliding scale, Apresoline, Synthroid, vancomycin, Zofran, Pr otonix IV q.12 hours, and vancomycin. PHYSICAL EXAMINATION: GENERAL: Patient is resting in bed. Her children and family transited for her. She is in no overt distress. VITAL SIGNS: Temperature is 97, pulse 77, respirations 18, temperature is 98. She is overweight. S he has got a peritoneal dialysis going now. LUNGS: Clear. CARDIOVASCULAR: Heart is regular rate and rhythm. ABDOMEN: Soft and nontender. There is no rebound. There is no guarding. She notes that she has de león d some tenderness in left lower quadrant, but she is not tender there presently. LABORATORY DATA: Hemoglobin is 8.5 at 1515, it was 7.9 at 3 this morning, it was 9 yesterday on admi ssion, it was 8.1 on 08/02/2017. INR is 1. Chemistries: BUN 75, creatinine 9 on admission with a s odium of 139 and potassium of 3.8. BUN usually runs in the 40-50 range, it has been as high as 80 in the past. Liver function test normal. Iron was 78 in 09/2015, has not been checked here in the [facility] recently. She had a Hemoccult positive stool here in the hospital. Urine culture has been neg ative. Blood cultures are pending. Peritoneal fluid culture on 08/07/2017 was negative. Apparently , the peritoneal cultures are still pending. ASSESSMENT: 1. Peritonitis, likely due to the peritoneal dialysis, cultures pending on antibiotics, improving. 2. Occult positive stool with anemia, which has been chronic and stable. There are no signs of acut e gastrointestinal bleeding, and the patient's family reports a history of black stools; however, she has been on iron. She is on Eliquis at home, but is also on PPI, which should really protect her [facility] from ulcer disease. 3. History of black diarrhea witnessed by a family member since fairly abdomen is a new change for h er and an elevated BUN. We will proceed with upper endoscopy. I think we can stop the serial H&H's as there are no signs of acute bleeding. If this is normal, we would consider an outpatient colonosc opy after her peritonitis is resolved.
--- NOTE | 2017-08-31 08:00 | ADD-PRG ---
DATE OF SERVICE: 08/30/2017 This is an addendum to the note of Dr. Josey Hsu. Ms. Valenzuela was admitted with possible peritoneal fluid infection. Appropriate cultures have been dr velez and she is currently on broad spectrum antibiotics. She is also anemic and has some evidence of rectal bleeding. We have consulted GI to consider colonoscopy and EGD. In the event, she remains cl inically and hemodynamically stable.
[2017-08-31] MEDS: Pantoprazole 40 MG VIAL IVP SCH ×2 (08:12→21:08)
[2017-08-31] MEDS: Carvedilol 25 MG TAB PO SCH ×2 (08:13→18:01)
[2017-08-31] MEDS: Sevelamer Carbonate 800 MG TAB PO SCH ×3 (08:14→18:01)
[2017-08-31] MEDS: Calcitriol 0.25 MCG CAP PO SCH (08:14)
[2017-08-31] MEDS: Gabapentin 300 MG CAP PO SCH ×2 (08:14→21:08)
[2017-08-31] MEDS: Lisinopril 20 MG TAB PO SCH ×2 (08:14→21:10)
[2017-08-31] MEDS: Insulin Glargine 90 UNITS in Pre-Filled Syringe 1 EACH SC SCH (08:15)
--- NOTE | 2017-08-31 08:43 | PDOC.FM ---
- Subjective Subjective: Patient reports continued abdominal pain worse in LLQ. She denies any fevers. She has been tolerating PO, but is now NPO. - Objective MAR Reviewed: Yes Vital Signs & Weight: Vital Signs (12 hours) Temp Pulse Resp BP BP Pulse Ox 08/31/17 08:14 139/63 08/31/17 04:22 98.3 F 82 16 129/63 94 L 08/30/17 23:51 99.3 F 72 19 104/50 L 93 L 08/30/17 21:41 79 08/30/17 21:40 132/62 Weight Admit Weight 135.76 kg Weight 140.069 kg I&O: 08/30/17 08/31/17 09/01/17 06:59 06:59 06:59 Intake Total 100 Output Total 0 Balance 100 Result Diagrams: 08/30/17 15:15 08/31/17 05:14 Phys Exam - Physical Examination Constitutional: NAD HEENT: moist MMs Respiratory: no wheezing, no rales, no rhonchi, clear to auscultation bilateral Cardiovascular: RRR, no significant murmur, no rub Gastrointestinal: soft, no distention, positive bowel sounds tender to palpation diffusely, worse in LLQ and MATTHEW regions trace pitting edema in BLE, s/p R large toe amputation Neurological: non-focal, moves all 4 limbs Psychiatric: normal affect, A&O x 3 Skin: normal turgor, cap refill <2 seconds Dx/Plan (1) SBP (spontaneous bacterial peritonitis) Code(s): K65.2 - SPONTANEOUS BACTERIAL PERITONITIS Status: Acute (2) Melena Code(s): K92.1 - MELENA Status: Acute (3) UTI (urinary tract infection) Status: Acute Qualifiers: Urinary tract infection type: acute cystitis Hematuria presence: with hematuria Qualified Code(s): N30.01 - Acute cystitis with hematuria (4) Anemia Code(s): D64.9 - ANEMIA, UNSPECIFIED Status: Chronic Qualifiers: Other causes of anemia: other cause, not classified (5) Chronic anticoagulation Code(s): Z79.01 - INTERMEDIATE (CURRENT) USE OF ANTICOAGULANTS Status: Chronic (6) DM type 2 (diabetes mellitus, type 2) Status: Chronic Qualifiers: Diabetes mellitus complication status: with kidney complications Diabetes mellitus complication detail: with chronic kidney disease Chronic kidney disease stage: on chronic dialysis (7) Dyslipidemia Code(s): E78.5 - HYPERLIPIDEMIA, UNSPECIFIED Status: Chronic (8) Hypertension Code(s): I10 - ESSENTIAL (PRIMARY) HYPERTENSION Status: Chronic Qualifiers: Hypertension type: renovascular hypertension Qualified Code(s): I15.0 - Renovascular hypertension (9) Morbid obesity Code(s): E66.01 - MORBID (SEVERE) OBESITY DUE TO EXCESS CALORIES Status: Chronic (10) A-fib Code(s): I48.91 - UNSPECIFIED ATRIAL FIBRILLATION Status: Resolved Qualifiers: Atrial fibrillation type: chronic Qualified Code(s): I48.2 - Chronic atrial fibrillation (11) ESRD (end stage renal disease) Code(s): N18.6 - END STAGE RENAL DISEASE Status: Chronic - Plan Plan: 52 year old F presenting with abdominal pain and cloudy PD fluid possibly 2/2 SBP and new onset melena. Spontaneous Bacterial Peritonitis -Dr. Stephens consulted in ED, appreciate recs -Peritoneal fluid has shown 8860 WBC's with 80% neutrophils. Cx has grown many WBC's with no bacteria preliminarily -pending Bcx -CT showed no acute process -Rocephin and Vanc, will d/c vanc after Bcx negative for 48 hrs Upper GI Bleed Pt has melena with FOBT + -Anemia, but hemoglobin at baseline -GI consulted- appreciate recs -Protonix -EGD planned for today ESRD on PD -consulted nephro, Dr. Stephens -Continue nightly PD HTN -Resume home meds -hydralazine prn UTI -cultures pending, NG to date, anticipate that it was a dirty UA -received abx as above T2DM on insulin -resume home dose - Toujeo 90u qam, novolog 6u qac -aggressive sliding scale Hx of atrial fibrillation -on telemetry -Holding home eliquis due to concern for GI bleed CHF w/ AICD -monitor I/Os
[2017-08-31] MEDS ORDERED: CALCITRIOL 0.25 MCG PO SCH (09:00)
[2017-08-31] MEDS ORDERED: Epoetin (ESRD) 20,000 UNITS/ML SC SCH (09:00)
[2017-08-31] MEDS ORDERED: Non-Formulary Item 1 EACH (Cholecalciferol (Vitamin D3) [Vitamin D3] 5,000 UNIT) PO SCH (09:00)
--- NOTE | 2017-08-31 09:05 | PRG ---
DATE OF SERVICE: 08/31/2017 SERVICE: Renal Medicine. SUBJECTIVE: Ms. Savannah Franco is a 52-year-old female with ESRD and was admitted for abdominal pain. Her PD fluid is noted to be cloudy and she had a presumptive diagnosis of peritonit is. Empiric IV antibiotics has been given. She has also been referred to GI due to possible bleed, stools that were dark colored. This morning, she is still complaining of abdominal pain. She was gi jovanna intraperitoneal gentamicin yesterday. We are continuing to give her IV vancomycin. Vancomycin l evel is said to be therapeutic today. OBJECTIVE: VITAL SIGNS: Blood pressure is 139/63, heart rate 82, respiratory rate 16, temperature 98.3, pulse o x 94%. GENERAL: Noted to be awake, supine, comfortable, obese. SKIN: Adequate turgor. HEENT: She has slightly pale conjunctivae, anicteric sclerae. NECK: No neck mass, no carotid bruits, no JVD. CHEST: No deformities. LUNGS: Clear breath sounds. HEART: Normal sinus rhythm. No murmur, no gallops, no rubs. ABDOMEN: Globular, soft. Positive for mild tenderness. Positive for PD catheter. EXTREMITIES: No edema, no deformities. MEDICATIONS: Of 08/31/2017 was reviewed. LABORATORY DATA: Of 08/30/2017, hemoglobin 8.5. Of 08/31/2017, sodium 137, potassium 3.6, chloride 98, carbon dioxide 24, BUN 69, creatinine 8.85, glucose 251, calcium 7.0. Blood culture x1, coags ne gative staph, PD fluid negative to date. ASSESSMENT AND PLAN: 1. Peritonitis. Continue empiric IV antibiotics. Currently on IV ceftriaxone. She was also given a 1 time dose of intraperitoneal gentamicin last night. The gentamicin level and vancomycin level ar e noted to be therapeutic. We will review again of vancomycin and gentamicin level in a.m. The poss ibilities we can convert her to Cipro. 2. End-stage renal disease, stable. We will continue current peritoneal dialysis regimen. Fluid re moval/ultrafiltration as tolerated. 3. Anemia. Start Epogen 7500 units subcu every week. GI consult has been done for possible upper a nd lower GI endoscopy.
--- NOTE | 2017-08-31 11:25 | HP ---
DATE OF SERVICE: 08/31/2017 This is an addendum to the note of Dr. Josey Hsu. Ms. Valenzuela is resting quietly in bed. She is having some minimal abdominal pain as before. Her per itoneal fluid did show in excess of 8000 white blood cells and only 100 red blood cells. We are cont inuing broad spectrum antibiotic coverage pending further resulting of cultures. She has also seen b y the GI Services and is to undergo EGD for possible upper GI bleed later today.
[2017-08-31] MEDS ORDERED: PROPOFOL 200 MG/20 ML VIAL ONE (11:35)
[2017-08-31] MEDS: HumaLOG 300 UNITS/3 ML VIAL SC SCH ×3 (12:16→18:17)
[2017-08-31] MEDS: Calcium Acetate 667 MG CAP PO SCH ×2 (12:16→18:02)
[2017-08-31] MEDS: hydrALAZINE 25 MG TAB PO SCH ×3 (12:17→21:09)
[2017-08-31] MEDS ORDERED: Dextrose 50% Abboject 50 ML SYRINGE ONE (15:48)
[2017-08-31] MEDS ORDERED: Midazolam HCl 2 mg/2 ml Vial ONE (15:58)
[2017-08-31] MEDS ORDERED: Ketamine 50 MG/ML VIAL ONE (15:58)
[2017-08-31] MEDS ORDERED: Ondansetron HCl/PF 4 MG/2 ML Vial IVP PRN (16:47)
[2017-08-31] MEDS ORDERED: Promethazine HCl 25 MG/ML VIAL SLOW IVP PRN (16:47)
[2017-08-31] MEDS ORDERED: Promethazine HCl 25 MG/ML VIAL IM PRN (16:47)
[2017-08-31] MEDS: Acetaminophen 325 MG TAB PO PRN (18:03)
[2017-08-31] MEDS: cefTRIAXone\\ROCEPHIN 2 GM in Sodium Chloride 0.9% 100 ML IVPB SCH (18:07)
--- NOTE | 2017-08-31 19:53 | OP ---
DATE OF PROCEDURE: 08/31/2017 PROCEDURE: Esophagogastroduodenoscopy. PREOPERATIVE DIAGNOSIS: Anemia with Hemoccult-positive stool. OPERATIVE NOTE: Informed consent was obtained. The patient was sedated with total intravenous anest hesia. The bite block was placed and the endoscope was advanced easily to the second portion of the duodenum and retroflexion was performed in the stomach. The esophagus was normal. The GE junction w as normal. The stomach was normal including retroflexed views. The pylorus and first and second por tions of the duodenum were normal. IMPRESSION: Normal esophagogastroduodenoscopy. RECOMMENDATIONS: 1. Repeat colonoscopy in the future after peritonitis is resolved to evaluate the anemia and Hemoccu lt-positive stool in a patient on chronic anticoagulation. 2. I will sign off for now. Please call if GI can help.
[2017-08-31 20:23] LABS: Vancomycin, Trough 22.6 ug/mL
[2017-08-31] MEDS ORDERED: Cefepime 2 GM in Sodium Chloride 0.9% 100 ML IVPB SCH (21:00)
[2017-08-31] MEDS: Atorvastatin Calcium 40 MG TAB PO SCH (21:08)
[2017-08-31] MEDS: Calcium Carbonate 500 MG ChewTAB PO SCH (21:08)
[2017-08-31] MEDS ORDERED: Gentamicin Sulfate 80 MG in Premix Bag 1 BAG IVPB SCH (22:00)
[2017-09-01] MEDS: Levothyroxine Sodium 25 MCG TAB PO SCH (05:11)
[2017-09-01 05:56] LABS: Anion Gap 20 mmol/L (10-20); BUN (Urea Nitrogen) 64 mg/dL (9.8-20.1); Calc. Creatinine Clearance 17 mL/min (70-130); Calcium 7.1 mg/dL (7.8-10.44); Carbon Dioxide 22 mmol/L (22-29); Chloride 96 mmol/L (98-107); Estimated GFR-MDRD 5; Glucose 309 mg/dL (70-105); Sodium 134 mmol/L (136-145)
[2017-09-01 06:04] LABS: Band 13 % (5-11); Eosinophils 4 % (0-10); Lymphocytes 26 % (21-51); MDiff Complete? YES; Mean Corpuscular HGB CONC 33.9 g/dL (32.0-36.0); Mean Corpuscular Hemoglobin 33.1 pg (27.0-31.0); Mean Corpuscular Volume 97.7 fL (78.0-98.0); Mean Platelet Volume 9.5 fL (7.4-10.4); Monocytes 7 % (0-10); Neutrophil 50 % (42-75); PLT Morphology Comment Appears Adequate; Platelet Count 195 thou/uL (130-400); RBC Distribution Width 13.7 % (11.5-14.5); Red Blood Cell (RBC) Count 2.41 mill/uL (4.20-5.40); White Blood Cell (WBC) Count 4.5 thou/uL (4.8-10.8)
[2017-09-01] MEDS: hydrALAZINE 25 MG TAB PO SCH ×3 (08:13→20:44)
[2017-09-01] MEDS: Carvedilol 25 MG TAB PO SCH ×2 (08:13→17:01)
[2017-09-01] MEDS: Pantoprazole 40 MG VIAL IVP SCH ×2 (08:13→20:36)
[2017-09-01] MEDS: Lisinopril 20 MG TAB PO SCH ×2 (08:13→20:44)
[2017-09-01] MEDS: Sevelamer Carbonate 800 MG TAB PO SCH ×3 (08:13→17:02)
[2017-09-01] MEDS: Calcitriol 0.25 MCG CAP PO SCH (08:13)
[2017-09-01] MEDS: Gabapentin 300 MG CAP PO SCH ×2 (08:14→20:35)
[2017-09-01] MEDS: Calcium Acetate 667 MG CAP PO SCH ×3 (08:14→17:01)
--- NOTE | 2017-09-01 08:16 | PDOC.FM ---
- Subjective Subjective: Patient reports that her pain is a little improved from yesterday. She is tolerating PO without difficulty. Denies N/V, diarrhea, fevers. She has not been ambulating much. - Objective MAR Reviewed: Yes Vital Signs & Weight: Vital Signs (12 hours) Temp Pulse Resp BP BP Pulse Ox 09/01/17 07:17 97.6 F 69 18 106/53 L 97 09/01/17 04:05 97.7 F 72 16 128/74 96 08/31/17 23:56 98.8 F 76 16 116/71 97 08/31/17 21:10 94/62 08/31/17 21:09 76 94/62 Weight Admit Weight 135.76 kg Weight 140.069 kg I&O: 08/31/17 09/01/17 09/02/17 06:59 06:59 06:59 Intake Total 100 315 Output Total 0 Balance 100 315 Result Diagrams: 09/01/17 05:01 09/01/17 05:01 Phys Exam - Physical Examination Constitutional: NAD HEENT: moist MMs Respiratory: no wheezing, no rales, no rhonchi, clear to auscultation bilateral Cardiovascular: RRR, no significant murmur, no rub Gastrointestinal: soft, positive bowel sounds tender to palpation diffusely, peritoneal catheter in place trace edema in BLE Neurological: non-focal, moves all 4 limbs Psychiatric: normal affect, A&O x 3 Skin: normal turgor, cap refill <2 seconds Dx/Plan (1) Peritonitis associated with peritoneal dialysis Status: Acute Qualifiers: Encounter type: initial encounter Qualified Code(s): T85.71XA - Infection and inflammatory reaction due to peritoneal dialysis catheter, initial encounter (2) Melena Code(s): K92.1 - MELENA Status: Acute (3) UTI (urinary tract infection) Status: Acute Qualifiers: Urinary tract infection type: acute cystitis Hematuria presence: with hematuria Qualified Code(s): N30.01 - Acute cystitis with hematuria (4) Anemia Code(s): D64.9 - ANEMIA, UNSPECIFIED Status: Chronic Qualifiers: Other causes of anemia: other cause, not classified (5) Chronic anticoagulation Code(s): Z79.01 - USP (CURRENT) USE OF ANTICOAGULANTS Status: Chronic (6) DM type 2 (diabetes mellitus, type 2) Status: Chronic Qualifiers: Diabetes mellitus complication status: with kidney complications Diabetes mellitus complication detail: with chronic kidney disease Chronic kidney disease stage: on chronic dialysis (7) Dyslipidemia Code(s): E78.5 - HYPERLIPIDEMIA, UNSPECIFIED Status: Chronic (8) Hypertension Code(s): I10 - ESSENTIAL (PRIMARY) HYPERTENSION Status: Chronic Qualifiers: Hypertension type: renovascular hypertension Qualified Code(s): I15.0 - Renovascular hypertension (9) Morbid obesity Code(s): E66.01 - MORBID (SEVERE) OBESITY DUE TO EXCESS CALORIES Status: Chronic (10) A-fib Code(s): I48.91 - UNSPECIFIED ATRIAL FIBRILLATION Status: Resolved Qualifiers: Atrial fibrillation type: chronic Qualified Code(s): I48.2 - Chronic atrial fibrillation (11) ESRD (end stage renal disease) Code(s): N18.6 - END STAGE RENAL DISEASE Status: Chronic - Plan Plan: 52 year old F presenting with abdominal pain and cloudy PD fluid 2/2 peritonitis and new onset melena. Peritonitis associated with peritoneal dialysis catheter -Dr. Stephens consulted in ED, appreciate recs -Peritoneal fluid has shown 8860 WBC's with 80% neutrophils. Cx has grown Gram negative rods -BCx grew out 1/2 staph epidermidis, likely contaminate -CT showed no acute process -Rocephin and Vanc, will d/c vanc after cx finalized - s/p 1 dose of intraperitoneal gent Possible GI Bleed Pt has melena with FOBT + -Anemia, but hemoglobin at baseline -GI consulted- appreciate recs -Protonix -EGD was normal -plan for possible outpatient colonoscopy once the peritonitis has resolved ESRD on PD -consulted nephroDr. Stephens -Continue nightly PD HTN -Resume home meds -hydralazine prn UTI -cultures negative, likely due to dirty UA with multiple squamous epithelial cells. pt receiving abx for peritonitis anyways that would cover UTI. T2DM on insulin -resume home dose - Toujeo 90u qam, novolog 6u qac -Pt got hypoglycemic yesterday, but was NPO. Will continue home regimen today, but make sure she eats regular meals. Hx of atrial fibrillation -on telemetry -Holding home eliquis due to concern for GI bleed CHF w/ AICD -monitor I/Os
[2017-09-01] MEDS: Insulin Glargine 90 UNITS in Pre-Filled Syringe 1 EACH SC SCH (09:00)
[2017-09-01] MEDS: HumaLOG 300 UNITS/3 ML VIAL SC SCH ×3 (09:01→17:00)
[2017-09-01] MEDS ORDERED: Apixaban 2.5 MG TAB PO SCH (11:30)
--- NOTE | 2017-09-01 11:51 | PRG ---
DATE OF SERVICE: 09/01/2017 SUBJECTIVE: Ms. Nuñez is a 52-year-old female with ESRD admitted for peritonitis. Revi ew of the PD fluid showed she had grown gram negative cyn. She is currently on IV ceftriaxone. She was also status post intraperitoneal gentamicin infusion two days ago. The abdominal pain is still t here, but she tells me it is slightly improved. I did discuss the case with the dialysis nurse and t he PD fluid was still noted to be cloudy. My plan is tonight to repeat another PD fluid cell count a nd to see if the leukocytosis is improving. We are waiting for the sensitivity of this gram-negative cyn. PHYSICAL EXAMINATION: VITAL SIGNS: Blood pressure is 137/80, heart rate 77, respiratory rate 16, temperature 97.5, pulse o x 95%. GENERAL: Awake, alert, comfortable, obese, not in distress. SKIN: Adequate turgor. HEENT: Slightly pale conjunctivae, anicteric sclerae. NECK: No neck mass, no carotid bruits. No JVD. CHEST: No deformities. LUNGS: Clear breath sounds. No wheezing, no crackles. HEART: Normal sinus rhythm. No murmurs, no gallops, no rubs. ABDOMEN: Globular, soft, nontender, no masses. Positive for PD catheter. Slightly tender on deep p alpation. EXTREMITIES: No edema. MEDICATIONS: Medications of 09/01/2017 was reviewed. LABORATORY DATA: Laboratories of 09/01/2017; white count 4.5, hemoglobin 8, hematocrit 23.5, sodium 134, potassium 4, chloride 96, carbon dioxide 22, BUN 64, creatinine 8.64, glucose 309 and calcium 7. 1. ASSESSMENT AND PLAN: 1. Peritonitis - gram-negative cyn was grown. Currently on IV ceftriaxone. Status post intraperito alex gentamicin infusion. I will be rechecking another cell count with the PD fluid due to the fact that the PD fluid this morning, per verbal report by the PD nurse, was still cloudy. We are also eugene ting for the sensitivity of the gram negative cyn. For the moment, continue current management. I w ill probably discontinue vancomycin. 2. Anemia - stable. Continuing weekly Epogen. 3. End-stage renal disease. We will continue current peritoneal dialysis. No changes will be made with peritoneal dialysis regimen.
--- NOTE | 2017-09-01 13:56 | ADD-PRG ---
DATE OF SERVICE: 09/01/2017 This is an addendum to the note of Dr. Josey Hsu. Ms. Valenzuela is resting quietly in no distress. She still has some abdominal pain, but this seems ove rall improved. She is continuing on broad spectrum antibiotics as well as her peritoneal dialysis in anticipation of discharge soon. We have also discussed the case with Dr. Stephens and appreciate his inp ut. EGD yesterday did not show any upper GI bleeding source.
[2017-09-01 16:59] LABS: BF Color Colorless; BF RBC Count - Manual 6 /cumm; BF WBC/Nonhematics Ct. - Manua 1105 /cumm; Body Fluid Source PERITONEAL FLUID; Clarity Clear (Clear); Tube # 1
[2017-09-01 17:23] LABS: BF Segmented Neutrophils 59 %; Cell Count Non Hematic 26 %; Lymphocytes 15 %
[2017-09-01] MEDS: cefTRIAXone\\ROCEPHIN 2 GM in Sodium Chloride 0.9% 100 ML IVPB SCH (17:24)
[2017-09-01] MEDS: Calcium Carbonate 500 MG ChewTAB PO SCH (20:34)
[2017-09-01] MEDS: Atorvastatin Calcium 40 MG TAB PO SCH (20:35)
[2017-09-01 21:07] LABS: Vancomycin, Trough 17.8 ug/mL
[2017-09-02 04:46] LABS: #Eosinphils 0.1 thou/uL (0.0-0.7); #Lymphocytes 0.9 thou/uL (1.20-3.40); #Monocytes 0.5 thou/uL (0.11-0.59); #Neutrophils 4.2 thou/uL (1.40-6.50); %Basophils 0.5 % (0.0-1.0); %Lymphocytes 16.5 % (21.0-51.0); %Monocytes 8.5 % (0.0-10.0); %Neutrophils 73.4 % (42.0-75.0); Hemoglobin 8.3 g/dL (12.0-16.0); Mean Corpuscular HGB CONC 33.5 g/dL (32.0-36.0); Mean Corpuscular Volume 95.6 fL (78.0-98.0); Mean Platelet Volume 9.1 fL (7.4-10.4); Platelet Count 205 thou/uL (130-400); RBC Distribution Width 13.6 % (11.5-14.5); White Blood Cell (WBC) Count 5.7 thou/uL (4.8-10.8)
[2017-09-02 04:55] LABS: Anion Gap 18 mmol/L (10-20); BUN (Urea Nitrogen) 60 mg/dL (9.8-20.1); Calc. Creatinine Clearance 17 mL/min (70-130); Calcium 7.3 mg/dL (7.8-10.44); Carbon Dioxide 25 mmol/L (22-29); Chloride 96 mmol/L (98-107); Estimated GFR-MDRD 5; Glucose 179 mg/dL (70-105); Potassium 3.9 mmol/L (3.5-5.1); Sodium 135 mmol/L (136-145)
[2017-09-02] MEDS: Levothyroxine Sodium 25 MCG TAB PO SCH (05:52)
[2017-09-02] MEDS ORDERED: Apixaban 2.5 MG TAB PO SCH (09:00)
[2017-09-02] MEDS ORDERED: Isosorbide Dinitrate 5 MG TAB PO SCH (09:00)
--- NOTE | 2017-09-02 09:00 | PDOC.FM ---
- Subjective Subjective: Patient complains less of abdominal pain. She has been having BM's without difficulty. Her PD fluid is still cloudy. She has been tolerating PO. - Objective MAR Reviewed: Yes Vital Signs & Weight: Vital Signs (12 hours) Temp Pulse Resp BP Pulse Ox 09/02/17 08:27 98 F 75 18 147/80 H 97 Weight Admit Weight 135.76 kg Weight 140.069 kg I&O: 09/01/17 09/02/17 09/03/17 06:59 06:59 06:59 Intake Total 315 1020 Balance 315 1020 Result Diagrams: 09/02/17 04:26 09/02/17 04:26 Phys Exam - Physical Examination Constitutional: NAD HEENT: moist MMs, sclera anicteric Respiratory: no wheezing, no rales, no rhonchi, clear to auscultation bilateral Cardiovascular: RRR, no significant murmur, no rub Gastrointestinal: soft TTP diffusely, no guarding, normoactive bowel sounds Musculoskeletal: pulses present trace pitting edema in BLE Psychiatric: normal affect, A&O x 3 Skin: normal turgor, cap refill <2 seconds Dx/Plan (1) Peritonitis associated with peritoneal dialysis Status: Acute Qualifiers: Encounter type: initial encounter Qualified Code(s): T85.71XA - Infection and inflammatory reaction due to peritoneal dialysis catheter, initial encounter (2) Melena Code(s): K92.1 - MELENA Status: Acute (3) UTI (urinary tract infection) Status: Acute Qualifiers: Urinary tract infection type: acute cystitis Hematuria presence: with hematuria Qualified Code(s): N30.01 - Acute cystitis with hematuria (4) Anemia Code(s): D64.9 - ANEMIA, UNSPECIFIED Status: Chronic Qualifiers: Other causes of anemia: other cause, not classified (5) Chronic anticoagulation Code(s): Z79.01 - ASSISTED (CURRENT) USE OF ANTICOAGULANTS Status: Chronic (6) DM type 2 (diabetes mellitus, type 2) Status: Chronic Qualifiers: Diabetes mellitus complication status: with kidney complications Diabetes mellitus complication detail: with chronic kidney disease Chronic kidney disease stage: on chronic dialysis (7) Dyslipidemia Code(s): E78.5 - HYPERLIPIDEMIA, UNSPECIFIED Status: Chronic (8) Hypertension Code(s): I10 - ESSENTIAL (PRIMARY) HYPERTENSION Status: Chronic Qualifiers: Hypertension type: renovascular hypertension Qualified Code(s): I15.0 - Renovascular hypertension (9) Morbid obesity Code(s): E66.01 - MORBID (SEVERE) OBESITY DUE TO EXCESS CALORIES Status: Chronic (10) A-fib Code(s): I48.91 - UNSPECIFIED ATRIAL FIBRILLATION Status: Resolved Qualifiers: Atrial fibrillation type: chronic Qualified Code(s): I48.2 - Chronic atrial fibrillation (11) ESRD (end stage renal disease) Code(s): N18.6 - END STAGE RENAL DISEASE Status: Chronic - Plan Plan: 52 year old F presenting with abdominal pain and cloudy PD fluid 2/2 peritonitis and new onset melena. Peritonitis associated with peritoneal dialysis catheter -Dr. Stephens consulted in ED, appreciate recs -Peritoneal fluid has shown 8860 WBC's with 80% neutrophils. Cx has grown Acinetobacter resistant to cipro and indeterminate to cephalosporins -BCx grew out 1/2 staph epidermidis, likely contaminate -CT showed no acute process -Rocephin, vanc was d/c'd yesterday - s/p 1 dose of intraperitoneal gent -Will tailor abx today for 3 week total course Possible GI Bleed Pt has melena with FOBT + -Anemia, but hemoglobin at baseline -GI consulted- appreciate recs -Protonix -EGD was normal -plan for possible outpatient colonoscopy once the peritonitis has resolved ESRD on PD -consulted nephroDr. Stephens -Continue nightly PD HTN -Resume home meds -hydralazine prn UTI -cultures negative, likely due to dirty UA with multiple squamous epithelial cells. pt receiving abx for peritonitis anyways that would cover UTI. T2DM on insulin -continue home dose - Toujeo 90u qam, novolog 6u qac -Accuchecks -CC diet Hx of atrial fibrillation -Continue home eliquis due to Chads-vasc of 3 and Has-bled of 1 CHF w/ AICD -monitor I/Os
[2017-09-02] MEDS: Sevelamer Carbonate 800 MG TAB PO SCH ×2 (09:22→12:21)
[2017-09-02] MEDS: Carvedilol 25 MG TAB PO SCH (09:27)
[2017-09-02] MEDS: hydrALAZINE 25 MG TAB PO SCH (09:27)
[2017-09-02] MEDS: Lisinopril 20 MG TAB PO SCH (09:28)
[2017-09-02] MEDS: Gabapentin 300 MG CAP PO SCH (09:28)
[2017-09-02] MEDS: Calcitriol 0.25 MCG CAP PO SCH (09:28)
[2017-09-02] MEDS: HumaLOG 300 UNITS/3 ML VIAL SC SCH ×2 (09:39→12:09)
[2017-09-02] MEDS: Pantoprazole 40 MG VIAL IVP SCH (09:44)
[2017-09-02] MEDS: Calcium Acetate 667 MG CAP PO SCH ×3 (09:44→12:20)
[2017-09-02] MEDS ORDERED: Calcium Acetate 667 MG CAP PO SCH (09:45)
--- NOTE | 2017-09-02 10:01 | PRG ---
DATE OF SERVICE: 09/02/2017 RENAL MEDICINE SUBJECTIVE: Ms. Franco is a 52-year-old female with ESRD and followed up by the Renal S sushil for her peritoneal dialysis. She was admitted for gram negative cyn peritonitis. Currently o n IV antibiotics. She continues to receive IV ceftriaxone. A repeat PD fluid exam was done due to r eport yesterday about cloudy PD fluid. The PD fluid looks much better last night. The cell count al so went down from 8,860 to simply 1105. The PD fluid was noted to be colorless. Her abdominal pain is slightly improved today. No new complaints. No chest pain, shortness of breath. OBJECTIVE: VITAL SIGNS: Blood pressure 147/80, heart rate 75, respiratory rate 18, temperature 98, pulse ox 97% . GENERAL: Awake, supine, obese, not in distress. SKIN: Adequate turgor. HEENT: Slightly pale conjunctivae, anicteric sclerae. NECK: No neck mass, no carotid bruits, no JVD. CHEST: No deformities. LUNGS: Clear breath sounds. HEART: Normal sinus rhythm. No murmurs, no gallops, no rubs. ABDOMEN: Globular, soft, nontender. Positive for PD catheter. EXTREMITIES: Trace edema. MEDICATIONS: Medications of 09/01/2017 was reviewed. LABORATORY DATA: Laboratories of 09/01/2017; PD fluid was colorless, white count 1105. On 8; sodium 135, potassium 3.9, chloride 96, carbon dioxide 25, BUN 60, creatinine 8.46, glucose 179, c alcium 7.3, white count 5.7, hemoglobin 8.3. ASSESSMENT AND PLAN: 1. Gram-negative cyn peritonitis - currently on IV ceftriaxone. The organism that grew was identifi ed as Acinetobacter baumannii complex. This was said to have intermediate resistance with ceftriaxon e. However, this is sensitive to Bactrim and Levaquin. My bias is to convert this patient to p.o. C ipro 250 b.i.d. 2. End-stage renal disease, stable. Continue current continuous cycling peritoneal dialysis regimen . No changes to be made with the current peritoneal dialysis. 3. Anemia, on weekly Epogen. Continue current management.
[2017-09-02] MEDS ORDERED: traMADol HCl 50 MG TAB PO PRN (10:39)
[2017-09-02 11:31] VITALS: BP 148/82; TEMP 98.8
[2017-09-02] MEDS: Insulin Glargine 90 UNITS in Pre-Filled Syringe 1 EACH SC SCH (11:42)
--- NOTE | 2017-09-02 12:51 | ADD-PRG ---
DATE OF SERVICE: 09/02/2017 ADDENDUM This is an addendum to the note of Dr. Josey Hsu. Jazmine Franco continues to have some abdominal pain, although overall this has improved. Her chester toneal fluid did grow an organism sensitive to Levaquin. We have discussed the case with Dr. Stephens and we will discharge the patient on oral Levaquin to follow up with Dr. Stephens.
[2017-09-02] MEDS ORDERED: Cipro 250 MG TAB PO SCH (20:00)
--- NOTE | 2017-09-03 08:34 | DIS-2 ---
DATE OF ADMISSION: 08/29/2017 DATE OF DISCHARGE: 09/02/2017 ADMITTING ATTENDING: Anahy Ramirez M.D. DISCHARGE ATTENDING: Sanchez Dominguez M.D. ADMITTING RESIDENT: Olivia Werner D.O. DISCHARGE RESIDENT: Josey Hsu M.D. CONSULTATIONS: Dr. Stephens with Nephrology and Dr. Syed with Gastroenterology. PROCEDURES: EGD on 08/31/2017. PRIMARY DIAGNOSES: 1. Peritoneal dialysis catheter associated peritonitis. 2. Melena secondary to gastrointestinal bleed. 3. Hypoglycemia. SECONDARY DIAGNOSES: 1. End-stage renal disease on peritoneal dialysis. 2. Hypertension. 3. Type 2 diabetes on insulin. 4. History of paroxysmal atrial fibrillation. 5. Congestive heart failure with AICD in place. DISCHARGE MEDICATIONS: 1. Eliquis 2.5 mg p.o. daily. 2. Atorvastatin 80 mg p.o. at bedtime. 3. Calcitriol 0.25 mcg p.o. daily. 4. Calcium acetate 2668 mg p.o. t.i.d. with meals. 5. Calcium carbonate 800 mg p.o. at bedtime. 6. Carvedilol 50 mg p.o. b.i.d. with meals. 7. Vitamin D3 5000 units p.o. daily. 8. Gabapentin 300 mg p.o. b.i.d. 9. Hydralazine 25 mg p.o. t.i.d. 10. Isosorbide dinitrate 10 mg p.o. b.i.d. 11. Synthroid 25 mcg p.o. daily. 12. Lisinopril 20 mg p.o. b.i.d. 13. Renvela 800 mg p.o. t.i.d. with meals. 14. Procrit 7500 units subcu q.7 days. 15. NovoLog 6 units subcu with each meal. 16. Toujeo 90 units subcutaneously q.a.m. 17. Levaquin 250 mg p.o. q.48 hours for 3 weeks. 18. Omeprazole 20 mg p.o. q.a.m. 19. Tramadol 50 mg p.o. q.12 hours p.r.n. pain for 2 weeks. DISCONTINUED MEDICATIONS: None. HISTORY OF PRESENT ILLNESS AND HOSPITAL COURSE: This is a 52-year-old female with past medical history of end-stage renal disease on peritoneal dialysis who presented to the ER complaining of abdominal pain as well as melena. The patient reported that her dialysis fluid from her peritoneal dialysis was cloudier than usual. She also reported some chills. The patient had early check of the peritoneal fluid and then cultured it and it was found to have over 8000 white blood cells with 80% of those being neutrophils initially and with the culture that grew out Acinetobacter baumannii complex that was resistant to Cipro indeterminate to the cephalosporins, but sensitive to Levaquin. The patient, prior to the culture growing out, was initially treated with vancomycin and Rocephin and got a dose of intraperitoneal Gentamicin. Clinically her abdominal pain improved slowly every day, but was still having abdominal pain. On 09/01/2017, the patient reported still having cloudy peritoneal fluid and so a cell count was done again and this showed improvement with 1100 white blood cells, and 59% of those being neutrophils. The patient was switched over to p.o. Levaquin to be continued for a 3-week course and to treat her catheter associated peritonitis. The patient is also presented with melena and had a stable hemoglobin throughout her entire hospitalization that was around her baseline. Initially on presentation was 9.0, it remained around 8-8.5 throughout the remainder of her hospitalization. The patient had a GI consult and an EGD done on 2017 that showed no signs of any ulcers or bleeding or gastritis. The coin machine assembler elected to her doing a colonoscopy until after the patient's peritonitis resolved and we will have the patient follow up with them in clinic to have that done at a later time as the patient's hemoglobin remained stable and was not acutely bleeding. The patient did have one episode of hypoglycemia. This was on the day that the patient remained n.p.o. for the EGD and received her full dose of insulin; however, this corrected quickly with D50 and the patient had no further episodes the rest of her hospitalization as she continued to eat normally. DISPOSITION: Stable. DISCHARGE INSTRUCTIONS: 1. Location: Home. 2. Diet: Renal, high protein, consistent carbohydrates. 3. Activity: As tolerated. 4. Follow up with Dr. Ashton at [facility] within 3-5 days. 5. Follow up with Dr. Stephens within 1-2 weeks. 6. Follow up with Dr. [place] within 1-2 months. [facility]
[2017-09-06] MEDS ORDERED: Epoetin (ESRD) 20,000 UNITS/ML SC SCH (09:00)
== END 2017-09-02 13:38 | disposition home or self-care (01) | DRG 919 ==
LOC: ERS 19:38 → 2NO 23:58 → T4-B 08-31 17:46
PROVIDERS: ADMIT Family Medicine; ATTEND Family Medicine
PROC: 0DJ08ZZ Inspection of Upper Intestinal Tract, Via Natural or Artificial Opening Endoscopic (ICD-10-PCS; principal; 2017-08-31)
DX: T85.71XA Infection and inflammatory reaction due to peritoneal dialysis catheter, initial encounter (principal); N18.6 End stage renal disease; K65.2 Spontaneous bacterial peritonitis; K92.1 Melena; I13.2 Hypertensive heart and chronic kidney disease with heart failure and with stage 5 chronic kidney disease, or end stage renal disease; N30.00 Acute cystitis without hematuria; B96.89 Other specified bacterial agents as the cause of diseases classified elsewhere; Y83.8 Other surgical procedures as the cause of abnormal reaction of the patient, or of later complication, without mention of misadventure at the time of the procedure; Y92.9 Unspecified place or not applicable; E11.649 Type 2 diabetes mellitus with hypoglycemia without coma; E11.22 Type 2 diabetes mellitus with diabetic chronic kidney disease; I50.9 Heart failure, unspecified; Z99.2 Dependence on renal dialysis; Z79.4 Long term (current) use of insulin; I48.0 Paroxysmal atrial fibrillation; Z95.810 Presence of automatic (implantable) cardiac defibrillator; D64.9 Anemia, unspecified; E78.5 Hyperlipidemia, unspecified; E66.01 Morbid (severe) obesity due to excess calories; E11.42 Type 2 diabetes mellitus with diabetic polyneuropathy
CPT/HCPCS: 36415; 36416; 51701; 74176; 80048; 80053; 80170; 80202; 81003; 81015; 82274; 83605; 83690; 85014; 85018; 85025; 85060; 86850; 86900; 86901; 87040; 87070; 87077; 87086; 87149; 87186; 87205; 89051; 93005; 93010; 96361; 96365; 96375; A4216; A4353; C9113; J0360; J0692; J0696; J1580; J1644; J2250; J2270; J2704; J3370; J7050; Q4081

== ENCOUNTER 2017-09-27 15:23 | Emergency (ER) | payer MEDICARE, MEDICAID ==
[2017-09-27 16:40] LABS: Mean Corpuscular Hemoglobin 32.6 pg (27.0-31.0); Mean Corpuscular Volume 95.7 fL (78.0-98.0); Mean Platelet Volume 8.1 fL (7.4-10.4); Platelet Count 233 thou/uL (130-400); RBC Distribution Width 14.8 % (11.5-14.5); Red Blood Cell (RBC) Count 3.38 mill/uL (4.20-5.40); White Blood Cell (WBC) Count 4.6 thou/uL (4.8-10.8)
[2017-09-27 17:02] LABS: ALT (SGPT) 12 U/L (8-55); AST (SGOT) 16 U/L (5-34); Albumin 3.7 g/dL (3.5-5.0); Alkaline Phosphatase 69 U/L (40-150); Anion Gap 19 mmol/L (10-20); BUN (Urea Nitrogen) 25 mg/dL (9.8-20.1); Bilirubin, Total 0.4 mg/dL (0.2-1.2); CK (CPK) 123 U/L (29-168); Calc. Creatinine Clearance 0 mL/min (70-130); Carbon Dioxide 25 mmol/L (22-29); Chloride 96 mmol/L (98-107); Estimated GFR-MDRD 6; Globulin 3.3 g/dL (2.4-3.5); Glucose 145 mg/dL (70-105); Lipase 18 U/L (8-78); Potassium 3.5 mmol/L (3.5-5.1); Sodium 136 mmol/L (136-145)
[2017-09-27 17:06] LABS: CKMB 3.8 ng/mL (0-6.6); Troponin I 0.036 ng/mL (< 0.028)
[2017-09-27 17:08] LABS: Anisocytosis SLIGHT = 6-15 cells (100X) (0-5/hpf); Band 2 % (5-11); Eosinophils 5 % (0-10); Lymphocytes 20 % (21-51); MDiff Complete? YES; Monocytes 8 % (0-10); Neutrophil 63 % (42-75); Nucleated RBC 2 % (0); Ovalocytes SLIGHT = 2-5 cells (100X) (0-1/hpf); PLT Morphology Comment Appears Adequate; Polychromasia MODERATE = 3-4 cells (100X) (0-2/hpf); Reactive Lymphocytes 1 % (0-10)
[2017-09-27] MEDS ORDERED: Ondansetron ODT 4 MG TAB ONE (21:28)
[2017-09-27] MEDS ORDERED: Acetaminophen 500 MG TAB ONE (21:28)
--- NOTE | 2017-09-27 22:03 | CT ---
CT BRAIN WITHOUT CONTRAST: HISTORY: Headache. COMPARISON: 10/09/2016 FINDINGS: No evidence of infarct, hemorrhage, midline shift, or abnormal extraaxial fluid collections is seen. The ventricular size is normal, and the basilar cisterns are patent. The bony calvarium is intact. There is mucosal disease in the right posterior ethmoid air cells. IMPRESSION: 1. No CT evidence of acute intracranial process. 2. Paranasal sinus disease. POS: [facility]
== END 2017-09-27 23:25 | disposition home or self-care (01) ==
LOC: ERS 15:23
DX: R51 Headache (principal); E11.9 Type 2 diabetes mellitus without complications; E03.9 Hypothyroidism, unspecified; E78.5 Hyperlipidemia, unspecified; I11.0 Hypertensive heart disease with heart failure; I50.9 Heart failure, unspecified; E66.9 Obesity, unspecified; Z79.4 Long term (current) use of insulin; Z79.899 Other long term (current) drug therapy
CPT/HCPCS: 36415; 70450; 80053; 82553; 83690; 83880; 84484; 85025; 93005; Q0162

== ENCOUNTER 2017-10-09 12:57 | Emergency (ER) | payer MEDICARE, MEDICAID ==
[2017-10-09 13:51] LABS: #Basophils 0.1 thou/uL (0.0-0.2); #Eosinphils 0.3 thou/uL (0.0-0.7); #Lymphocytes 1.3 thou/uL (1.20-3.40); #Monocytes 0.4 thou/uL (0.11-0.59); #Neutrophils 4.3 thou/uL (1.40-6.50); %Basophils 0.8 % (0.0-1.0); %Eosinophils 4.5 % (0.0-10.0); %Lymphocytes 20.8 % (21.0-51.0); %Monocytes 6.8 % (0.0-10.0); %Neutrophils 67.2 % (42.0-75.0); Hemoglobin 11.1 g/dL (12.0-16.0); Mean Corpuscular HGB CONC 34.3 g/dL (32.0-36.0); Mean Corpuscular Hemoglobin 32.7 pg (27.0-31.0); Mean Corpuscular Volume 95.3 fL (78.0-98.0); Mean Platelet Volume 8.4 fL (7.4-10.4); Platelet Count 206 thou/uL (130-400); RBC Distribution Width 13.9 % (11.5-14.5); Red Blood Cell (RBC) Count 3.39 mill/uL (4.20-5.40); White Blood Cell (WBC) Count 6.4 thou/uL (4.8-10.8)
[2017-10-09 14:18] LABS: ALT (SGPT) 9 U/L (8-55); AST (SGOT) 8 U/L (5-34); Albumin 3.6 g/dL (3.5-5.0); Alkaline Phosphatase 78 U/L (40-150); Anion Gap 10 mmol/L (10-20); BUN (Urea Nitrogen) 31 mg/dL (9.8-20.1); Bilirubin, Total 0.4 mg/dL (0.2-1.2); Calc. Creatinine Clearance 0 mL/min (70-130); Calcium 9.4 mg/dL (7.8-10.44); Carbon Dioxide 33 mmol/L (22-29); Chloride 100 mmol/L (98-107); Estimated GFR-MDRD 6; Globulin 3.1 g/dL (2.4-3.5); Glucose 223 mg/dL (70-105); Protein, Total 6.7 g/dL (6.0-8.3); Sodium 139 mmol/L (136-145)
--- NOTE | 2017-10-09 14:44 | ULT ---
VENOUS DOPPLER ULTRASOUND OF THE RIGHT UPPER EXTREMITY: HISTORY: Pain in the right upper extremity. TECHNIQUE: Parr scale ultrasound with color flow and spectral Doppler imaging of the deep venous system of the r ight upper extremity is performed. FINDINGS: A portion of the subclavian closer to the axillary vein is not satisfactorily visualized. The visual ized portions of the right subclavian vein, internal jugular, axillary, brachial, radial, ulnar, basi lic, and cephalic veins are patent and demonstrate good flow and normal spectral waveforms. IMPRESSION: No definite evidence of deep vein thrombosis in the right upper extremity. POS: [facility]
[2017-10-09] MEDS ORDERED: Acetaminophen 500 MG TAB ONE (14:53)
--- NOTE | 2017-10-09 16:05 | RAD ---
FRONTAL RADIOGRAPH CHEST 10/09/17 COMPARISON: 08/25/17 HISTORY: Pain and weakness. FINDINGS: Stable single lead transvenous AICD. Right sided dialysis catheter, distal tip overlying the region o f the right atrium. Cardiac silhouette is enlarged. No pneumothorax, lobar consolidation, or large vo lume pleural effusion. IMPRESSION: No focal consolidation or alveolar edema. POS: [facility]
== END 2017-10-09 16:07 | disposition home or self-care (01) ==
LOC: ERS 12:57
DX: I13.0 Hypertensive heart and chronic kidney disease with heart failure and stage 1 through stage 4 chronic kidney disease, or unspecified chronic kidney disease (principal); I50.9 Heart failure, unspecified; N18.9 Chronic kidney disease, unspecified; E78.5 Hyperlipidemia, unspecified; D64.9 Anemia, unspecified; E66.9 Obesity, unspecified; E11.22 Type 2 diabetes mellitus with diabetic chronic kidney disease; Z79.891 Long term (current) use of opiate analgesic; Z79.899 Other long term (current) drug therapy
CPT/HCPCS: 36415; 71045; 80053; 85025

== ENCOUNTER 2018-04-02 16:07 | Emergency (ER) | payer MEDICARE, MEDICAID ==
[2018-04-02] MEDS ORDERED: ISOVUE-370 76%-LOCM 1 ML ONE (16:37)
[2018-04-02 16:42] LABS: #Eosinphils 0.1 thou/uL (0.0-0.7); #Lymphocytes 0.7 thou/uL (1.20-3.40); #Monocytes 0.6 thou/uL (0.11-0.59); #Neutrophils 10.4 thou/uL (1.40-6.50); %Basophils 0.1 % (0.0-1.0); %Eosinophils 0.5 % (0.0-10.0); %Lymphocytes 5.8 % (21.0-51.0); %Monocytes 5.2 % (0.0-10.0); %Neutrophils 88.4 % (42.0-75.0); Hemoglobin 10.7 g/dL (12.0-16.0); Mean Corpuscular HGB CONC 34.2 g/dL (32.0-36.0); Mean Corpuscular Hemoglobin 31.6 pg (27.0-31.0); Mean Corpuscular Volume 92.4 fL (78.0-98.0); Mean Platelet Volume 9.6 fL (7.4-10.4); Platelet Count 178 thou/uL (130-400); RBC Distribution Width 13.8 % (11.5-14.5); Red Blood Cell (RBC) Count 3.39 mill/uL (4.20-5.40); White Blood Cell (WBC) Count 11.8 thou/uL (4.8-10.8)
[2018-04-02 17:01] LABS: ALT (SGPT) 9 U/L (8-55); AST (SGOT) 10 U/L (5-34); Albumin 3.5 g/dL (3.5-5.0); Alkaline Phosphatase 104 U/L (40-150); Anion Gap 15 mmol/L (10-20); BUN (Urea Nitrogen) 21 mg/dL (9.8-20.1); Bilirubin, Total 0.6 mg/dL (0.2-1.2); Calc. Creatinine Clearance 0 mL/min (70-130); Calcium 8.9 mg/dL (7.8-10.44); Carbon Dioxide 30 mmol/L (22-29); Chloride 93 mmol/L (98-107); Estimated GFR-MDRD 9; Globulin 3.8 g/dL (2.4-3.5); Glucose 347 mg/dL (70-105); Protein, Total 7.3 g/dL (6.0-8.3); Sodium 134 mmol/L (136-145)
[2018-04-02 19:25] LABS: PTT 32.3 SEC (22.9-36.1); Prothrombin Time 13.4 SEC (12.0-14.7)
[2018-04-02 20:01] LABS: CKMB 1.6 ng/mL (0-6.6)
--- NOTE | 2018-04-02 20:11 | ULT ---
GALLBLADDER ULTRASOUND: 04/02/18 HISTORY: Right upper quadrant pain. COMPARISON: 05/20/17. FINDINGS: Minimal hepatomegaly. Somewhat fatty appearing liver. No evidence for gallstones or gallbladder wall thickening or pericholecystic fluid. Common bile duct 0.5 cm. The technologist indicates a positive M urphy's sign. There are multiple right renal calculi with shadowing without evidence for right renal hydronephrosis. The visualized pancreas is unremarkable. IMPRESSION: No evidence of gallstones, gallbladder wall thickening or pericholecystic fluid or common duct dilata tion. Technologist indicates a positive Feldman's sign. Several echogenic foci within the kidneys with out hydronephrosis, nonspecific. These could potentially represent calculi or renal vascular calcific ations. Minimal increased cortical echogenicity as well as somewhat thinned renal cortex, evidence fo r nonspecific chronic renal disease. Evidence for fatty change in the liver. If there is clinical concern for acute cholecystitis, followup nuclear medicine hepatobiliary scan sh ould be considered. POS: [facility]
--- NOTE | 2018-04-02 20:15 | RAD ---
CHEST ONE VIEW PORTABLE: 04/02/18 HISTORY: Chest pain, nausea and vomiting after dialysis. COMPARISON: 10/09/17. FINDINGS: Left sided ICD. Right sided venous access catheter. Minimal cardiomegaly. Mild bilateral vascular con gestion with stable increased markings bilaterally. No confluent pneumonia, overt edema, pleural effu sue, or other acute process. IMPRESSION: Stable cardiomegaly and mild vascular congestion. Stable left ICD. Right venous access catheter. POS: [facility]
[2018-04-02] MEDS ORDERED: Acetaminophen 325 MG TAB ONE (20:50)
[2018-04-02] MEDS ORDERED: Ondansetron PF 4 MG/2 ML Vial ONE (20:50)
[2018-04-02] MEDS ORDERED: Morphine 4 MG/ML VIAL ONE (20:50)
--- NOTE | 2018-04-02 21:25 | CT ---
ABDOMEN AND PELVIC CT SCAN WITH IV CONTRAST: 04/02/18 HISTORY: Right upper quadrant pain for one week. Nausea and vomiting after dialysis. There is some minimal bilateral pleural thickening and some linear parenchymal changes in both lung z ones, nonspecific, possibly mild subsegmental atelectasis. Minimal cardiomegaly. Small amount of chester cardial effusion. The visualized liver, gallbladder, pancreas, spleen, and adrenal glands are unremar kable. Bilateral renal vascular calcifications without evidence for renal calculus or acute obstru ction. There is evidence for a subcutaneous open wound involving the left perineum region. IMPRESSION: No significant acute process in the abdomen or pelvis. Minimal probably chronic changes in the lung b ases with a small amount of pericardial effusion. No renal calculus or obstruction. No abscess, ad enopathy or abnormal fluid collection within the abdomen or pelvis. Other findings as above. POS: H
== END 2018-04-02 22:15 | disposition home or self-care (01) ==
LOC: ERS 16:07
DX: R10.11 Right upper quadrant pain (principal); R11.0 Nausea; E11.9 Type 2 diabetes mellitus without complications; E03.9 Hypothyroidism, unspecified; E78.5 Hyperlipidemia, unspecified; I10 Essential (primary) hypertension; E66.9 Obesity, unspecified; D64.9 Anemia, unspecified; Z79.899 Other long term (current) drug therapy; Z79.4 Long term (current) use of insulin
CPT/HCPCS: 36415; 71045; 74177; 76705; 80053; 82553; 83605; 83690; 83880; 84484; 85025; 85610; 85730; 87804; 93005; 96374; 96375; J2270; J2405; Q9966

== ENCOUNTER 2018-05-22 09:35 | Emergency (ER) | payer MEDICARE, MEDICAID ==
[2018-05-22] MEDS ORDERED: Lidocaine 1% (PF) 30 ML VIAL ONE (09:52)
== END 2018-05-22 10:23 | disposition home or self-care (01) ==
LOC: ERS 09:35
DX: L02.31 Cutaneous abscess of buttock (principal); I13.2 Hypertensive heart and chronic kidney disease with heart failure and with stage 5 chronic kidney disease, or end stage renal disease; I50.9 Heart failure, unspecified; N18.6 End stage renal disease; E03.9 Hypothyroidism, unspecified; E78.5 Hyperlipidemia, unspecified; E66.9 Obesity, unspecified; E11.22 Type 2 diabetes mellitus with diabetic chronic kidney disease; Z89.411 Acquired absence of right great toe; Z79.4 Long term (current) use of insulin; Z79.899 Other long term (current) drug therapy
CPT/HCPCS: 10061; J2001

== ENCOUNTER 2019-11-29 19:36 | Emergency (ER) | payer MEDICARE, MEDICAID, OTHER ==
[2019-11-29 20:24] LABS: #Basophils 0.1 thou/uL (0.0-0.2); #Eosinphils 0.2 thou/uL (0.0-0.7); #Lymphocytes 1.1 thou/uL (1.20-3.40); #Monocytes 0.3 thou/uL (0.11-0.59); %Basophils 1.4 % (0.0-1.0); %Eosinophils 4.2 % (0.0-10.0); %Lymphocytes 23.7 % (21.0-51.0); %Monocytes 6.7 % (0.0-10.0); Hemoglobin 10.6 g/dL (12.0-16.0); Mean Corpuscular HGB CONC 34.3 g/dL (32.0-36.0); Mean Corpuscular Hemoglobin 32.9 pg (27.0-31.0); Mean Corpuscular Volume 95.8 fL (78.0-98.0); Mean Platelet Volume 10.6 fL (7.4-10.4); Platelet Count 198 thou/uL (130-400); RBC Distribution Width 14.6 % (11.5-14.5); Red Blood Cell (RBC) Count 3.22 mill/uL (4.20-5.40); White Blood Cell (WBC) Count 4.7 thou/uL (4.8-10.8)
[2019-11-29 20:47] LABS: ALT (SGPT) 12 U/L (8-55); AST (SGOT) 9 U/L (5-34); Albumin 3.4 g/dL (3.5-5.0); Alkaline Phosphatase 114 U/L (40-110); Anion Gap 20 mmol/L (10-20); BUN (Urea Nitrogen) 43 mg/dL (9.8-20.1); Bilirubin, Total 0.4 mg/dL (0.2-1.2); Calc. Creatinine Clearance 0 mL/min (70-130); Calcium 8.2 mg/dL (7.8-10.44); Carbon Dioxide 23 mmol/L (22-29); Chloride 97 mmol/L (98-107); Estimated GFR-MDRD 6; Globulin 3.7 g/dL (2.4-3.5); Potassium 4.6 mmol/L (3.5-5.1); Protein, Total 7.1 g/dL (6.0-8.3); Sodium 135 mmol/L (136-145)
[2019-11-29 20:51] LABS: Glucose 583 mg/dL (70-105)
[2019-11-29] MEDS ORDERED: Insulin Regular 300 UNITS/3 ML VIAL ONE ×2 (21:28→22:20)
[2019-11-29] MEDS ORDERED: Insulin Regular 300 UNITS/3 ML VIAL SC SCH (22:00)
--- NOTE | 2019-11-29 22:16 | CT ---
EXAM: ABDOMEN CT WITHOUT CONTRAST PELVIC CT WITHOUT CONTRAST: 11/29/19 COMPARISON: 04/02/18. HISTORY: Pain. Suprapubic in location. FINDINGS: ABDOMEN CT: Lung bases are clear. Normal heart size. No significant pericardial fluid. Solid organs: Limited evaluation by the lack of IV contrast. Grossly no solid organ abnormality. Calc ified granuloma in the hepatic dome. Gallbladder: Contracted. No gastrohepatic, retrocrural or periportal lymphadenopathy. There is bilateral renal cortical thinning. Extensive atherosclerosis involving the vasculature invol ving the left and right renal arteries as well as the vasculature in the right renal and left renal h ilum. Bilaterally, no evidence of obstructive uropathy. No mesenteric mass, lymphadenopathy, free air, or free fluid. Limited evaluation of the alimentary canal by the absence of oral contrast. Multiple normal caliber s mall bowel loops. Normal ileocecal junction. Appendix is not appreciated. No inflammation of the ceca l apex. Scattered fecal material in a nondistended, nondilated colon. Abdominal wall: There is evidence of scattered anasarca and edema. PELVIC CT: Surgically absent uterus. Urinary bladder is decompressed. No pelvic mass, lymphadenopathy, free air or free fluid. Presacral fat is preserved. No lytic or blastic lesions in the osseous structures. IMPRESSION: No acute abnormality in the abdomen or pelvis. POS: PPP
[2019-11-29 23:49] LABS: Bacteria/HPF None Seen HPF (None Seen); Bilirubin Negative (Negative); Blood, Urine 2+ (Negative); Clarity Turbid (Clear); Glucose, Urine (Dipstick) Greater than 1000 mg/dL (Negative); Ketone, Urine Negative (Negative); Leukocyte 500 Leu/uL (Negative); Nitrite Negative (Negative); Protein, Urine (Dipstick) 100 mg/dL (Neg-Trace); Specific Gravity, Urine 1.012 (1.002-1.036); Squamous Epithelial 0-3 HPF (0-3); Urobilinogen Normal mg/dL (Less than 2); WBC/HPF Greater than 50 HPF (0-3)
[2019-11-30 12:06] LABS: SARS-CoV-2 MS2 Positive; SARS-CoV-2 N Gene Negative; SARS-CoV-2 S Gene Negative; SARS-CoV-2 by NAA Not Detected (NotDetected); SARS-CoV-2 orf1ab Negative
== END 2019-11-30 00:47 | disposition home or self-care (01) ==
LOC: ERS 19:36
DX: N39.0 Urinary tract infection, site not specified (principal); E11.65 Type 2 diabetes mellitus with hyperglycemia; Z20.828 Contact with and (suspected) exposure to other viral communicable diseases; E11.22 Type 2 diabetes mellitus with diabetic chronic kidney disease; I13.2 Hypertensive heart and chronic kidney disease with heart failure and with stage 5 chronic kidney disease, or end stage renal disease; N18.6 End stage renal disease; I50.9 Heart failure, unspecified; Z99.2 Dependence on renal dialysis; Z79.899 Other long term (current) drug therapy
CPT/HCPCS: 51701; 74176; 80053; 82962; 85025; 99284; U0003; 36415; 36416; 81003; 81015; 87635; J1815

== ENCOUNTER 2020-02-15 19:14 | Emergency (ER) | payer MEDICARE, MEDICAID ==
--- NOTE | 2020-02-15 19:47 | RAD ---
Portable frontal chest radiograph: 02/15/2020 COMPARISON: 04/02/2018 HISTORY: Cough for one month FINDINGS: Stable enlargement of the cardiac silhouette. Stable mild increased linear interstitial den sity. Single lead left-sided transvenous AICD. No focal consolidation or alveolar edema. IMPRESSION: No focal consolidation or alveolar edema.
[2020-02-16 05:45] LABS: SARS-CoV-2 MS2 Positive; SARS-CoV-2 N Gene Negative; SARS-CoV-2 S Gene Negative; SARS-CoV-2 by NAA Not Detected (NotDetected); SARS-CoV-2 orf1ab Negative
== END 2020-02-15 20:05 | disposition home or self-care (01) ==
LOC: ERS 19:14
DX: J02.9 Acute pharyngitis, unspecified (principal); R05 Cough; E03.9 Hypothyroidism, unspecified; E78.5 Hyperlipidemia, unspecified; I13.0 Hypertensive heart and chronic kidney disease with heart failure and stage 1 through stage 4 chronic kidney disease, or unspecified chronic kidney disease; N18.9 Chronic kidney disease, unspecified; D63.1 Anemia in chronic kidney disease; E66.9 Obesity, unspecified; E78.00 Pure hypercholesterolemia, unspecified; E11.22 Type 2 diabetes mellitus with diabetic chronic kidney disease; I50.9 Heart failure, unspecified; Z20.828 Contact with and (suspected) exposure to other viral communicable diseases; Z99.2 Dependence on renal dialysis; Z79.4 Long term (current) use of insulin; Z79.899 Other long term (current) drug therapy
CPT/HCPCS: 71045; 99283; U0003; 87635

== ENCOUNTER 2020-06-03 16:00 | Observation (INO) | payer MEDICARE, MEDICAID ==
[2020-06-03] MEDS ORDERED: hydrALAZINE 20 MG/ML VIAL ONE ×2 (16:28→19:17)
[2020-06-03] MEDS ORDERED: Nitroglycerin 2% Ointment 1 INCH/1 GM Packet ONE (16:28)
[2020-06-03 17:10] LABS: #Basophils 0.1 thou/uL (0.0-0.2); #Lymphocytes 1.1 thou/uL (1.20-3.40); #Monocytes 0.3 thou/uL (0.11-0.59); #Neutrophils 4.3 thou/uL (1.40-6.50); %Eosinophils 14.9 % (0.0-10.0); %Lymphocytes 15.9 % (21.0-51.0); %Monocytes 4.5 % (0.0-10.0); %Neutrophils 63.8 % (42.0-75.0); Hemoglobin 9.6 g/dL (12.0-16.0); Mean Corpuscular HGB CONC 31.8 g/dL (32.0-36.0); Mean Corpuscular Hemoglobin 29.1 pg (27.0-31.0); Mean Corpuscular Volume 91.5 fL (78.0-98.0); Mean Platelet Volume 9.5 fL (7.4-10.4); Platelet Count 220 thou/uL (130-400); RBC Distribution Width 13.9 % (11.5-14.5); Red Blood Cell (RBC) Count 3.29 mill/uL (4.20-5.40); White Blood Cell (WBC) Count 6.7 thou/uL (4.8-10.8)
[2020-06-03 17:33] LABS: ALT (SGPT) 12 U/L (8-55); AST (SGOT) 16 U/L (5-34); Albumin 3.4 g/dL (3.5-5.0); Alkaline Phosphatase 103 U/L (40-110); Anion Gap 16 mmol/L (10-20); BUN (Urea Nitrogen) 43 mg/dL (9.8-20.1); Bilirubin, Total 0.4 mg/dL (0.2-1.2); Calc. Creatinine Clearance 0 mL/min (70-130); Calcium 9.5 mg/dL (7.8-10.44); Carbon Dioxide 26 mmol/L (22-29); Chloride 101 mmol/L (98-107); Globulin 3.9 g/dL (2.4-3.5); Glucose 280 mg/dL (70-105); Lipase 35 U/L (8-78); Protein, Total 7.3 g/dL (6.0-8.3); Sodium 139 mmol/L (136-145)
[2020-06-03 17:54] LABS: CKMB 2.3 ng/mL (0-6.6)
[2020-06-03] MEDS ORDERED: hydrALAZINE 20 MG/ML VIAL SLOW IVP PRN (19:15)
[2020-06-03] MEDS ORDERED: Dextrose 5% in Water 1,000 ML IV PRN (20:59)
[2020-06-03] MEDS ORDERED: Dextrose 50% Abboject 50 ML SYRINGE SLOW IVP PRN (20:59)
[2020-06-03] MEDS ORDERED: Insulin Regular 300 UNITS/3 ML VIAL SC PRN (20:59)
[2020-06-03 21:26] LABS: Hemoglobin A1c 12.5 % (4.0-6.0)
[2020-06-03 21:38] LABS: Troponin I 0.115 ng/mL (< 0.028)
[2020-06-03 21:49] LABS: HBSAg Index 0.33 S/CO (0-0.99); Hep B Surf Ag Non-Reactive S/CO (NonReactive)
[2020-06-03 23:00] VITALS: BMI 48.4
[2020-06-03 23:23] LABS: Troponin I 0.137 ng/mL (< 0.028)
[2020-06-04 04:55] LABS: #Eosinphils 0.9 thou/uL (0.0-0.7); #Lymphocytes 1.4 thou/uL (1.20-3.40); #Monocytes 0.5 thou/uL (0.11-0.59); #Neutrophils 4.5 thou/uL (1.40-6.50); %Basophils 0.6 % (0.0-1.0); %Eosinophils 11.9 % (0.0-10.0); %Lymphocytes 18.9 % (21.0-51.0); %Monocytes 6.8 % (0.0-10.0); %Neutrophils 61.8 % (42.0-75.0); Hemoglobin 9.8 g/dL (12.0-16.0); Mean Corpuscular HGB CONC 33.8 g/dL (32.0-36.0); Mean Corpuscular Hemoglobin 30.9 pg (27.0-31.0); Mean Corpuscular Volume 91.2 fL (78.0-98.0); Mean Platelet Volume 9.5 fL (7.4-10.4); Platelet Count 208 thou/uL (130-400); RBC Distribution Width 14.4 % (11.5-14.5); Red Blood Cell (RBC) Count 3.17 mill/uL (4.20-5.40); White Blood Cell (WBC) Count 7.2 thou/uL (4.8-10.8)
[2020-06-04 05:19] LABS: ALT (SGPT) 10 U/L (8-55); AST (SGOT) 9 U/L (5-34); Albumin 3.2 g/dL (3.5-5.0); Alkaline Phosphatase 74 U/L (40-110); Anion Gap 16 mmol/L (10-20); BUN (Urea Nitrogen) 27 mg/dL (9.8-20.1); Bilirubin, Total 0.4 mg/dL (0.2-1.2); Calc. Creatinine Clearance 23 mL/min (70-130); Carbon Dioxide 26 mmol/L (22-29); Chloride 100 mmol/L (98-107); Globulin 3.3 g/dL (2.4-3.5); Glucose 251 mg/dL (70-105); Potassium 3.7 mmol/L (3.5-5.1); Protein, Total 6.5 g/dL (6.0-8.3); Sodium 138 mmol/L (136-145)
[2020-06-04 05:53] LABS: SARS-CoV-2 PCR by NAA Not Detected (NotDetected)
[2020-06-04] MEDS ORDERED: Levothyroxine Sodium 25 MCG TAB PO SCH (06:00)
[2020-06-04] MEDS ORDERED: Acetaminophen 500 MG TAB PO PRN (06:20)
[2020-06-04] MEDS: HumaLOG 300 UNITS/3 ML VIAL SC PRN ×2 (06:37→11:32)
[2020-06-04] MEDS ORDERED: EPOETIN ALFA-EPBX (ESRD) 4,000 UNIT/ML VIAL SC SCH (08:45)
[2020-06-04] MEDS ORDERED: Lantus 1000 UNITS/10 ML VIAL SC SCH (09:00)
[2020-06-04] MEDS: HumaLOG 300 UNITS/3 ML VIAL SC SCH ×2 (09:14→17:23)
[2020-06-04] MEDS: Sevelamer Carbonate 800 MG TAB PO SCH ×3 (09:19→17:18)
[2020-06-04] MEDS: Icosapent Ethyl 1 GM CAPSULE PO SCH ×2 (09:20→17:29)
[2020-06-04] MEDS: Calcium Acetate 667 MG CAP PO SCH ×3 (09:20→17:19)
[2020-06-04 11:38] VITALS: BP 130/67; TEMP 98.7
[2020-06-04] MEDS ORDERED: Atorvastatin Calcium 40 MG TAB PO SCH (21:00)
[2020-06-04] MEDS ORDERED: Lisinopril 20 MG TAB PO SCH (21:00)
== END 2020-06-04 19:12 | disposition home or self-care (01) ==
LOC: ERS 16:00 → 2SW 17:56
PROVIDERS: ADMIT Family Medicine; ATTEND Family Medicine
DX: I11.0 Hypertensive heart disease with heart failure (principal); I50.23 Acute on chronic systolic (congestive) heart failure; E11.21 Type 2 diabetes mellitus with diabetic nephropathy; N18.6 End stage renal disease; I48.91 Unspecified atrial fibrillation; I16.0 Hypertensive urgency; E11.65 Type 2 diabetes mellitus with hyperglycemia; E83.39 Other disorders of phosphorus metabolism; I42.9 Cardiomyopathy, unspecified; E78.5 Hyperlipidemia, unspecified; E78.00 Pure hypercholesterolemia, unspecified; E66.9 Obesity, unspecified; Z68.42 Body mass index [BMI] 45.0-49.9, adult; Z79.4 Long term (current) use of insulin; Z79.899 Other long term (current) drug therapy; Z95.810 Presence of automatic (implantable) cardiac defibrillator; Z99.2 Dependence on renal dialysis; Z20.822 Contact with and (suspected) exposure to COVID-19
CPT/HCPCS: 71045; 80053 ×2; 82553; 82962 ×2; 83036; 83690; 83880; 84484 ×2; 85025 ×2; 87340; 93005; 96372; 96374; 96376; 99285; G0378 ×3; Q5105; U0003; U0005; 36415; 36416; 87635; 90935; G0257; J0360; J1815

== ENCOUNTER 2021-01-13 23:38 | Emergency (ER) | payer MEDICARE, MEDICAID ==
[2021-01-14] MEDS ORDERED: Ketorolac Tromethamine 30 MG/ML VIAL ONE (00:02)
[2021-01-14 00:29] LABS: #Eosinphils 0.1 thou/uL (0.0-0.7); #Lymphocytes 1.3 thou/uL (1.20-3.40); #Monocytes 0.5 thou/uL (0.11-0.59); #Neutrophils 3.7 thou/uL (1.40-6.50); %Basophils 0.6 % (0.0-1.0); %Eosinophils 1.6 % (0.0-10.0); %Monocytes 8.7 % (0.0-10.0); %Neutrophils 66.1 % (42.0-75.0); Hemoglobin 6.4 g/dL (12.0-16.0); Mean Corpuscular HGB CONC 32.2 g/dL (32.0-36.0); Mean Corpuscular Hemoglobin 33.1 pg (27.0-31.0); Mean Platelet Volume 8.5 fL (7.4-10.4); Platelet Count 312 thou/uL (130-400); RBC Distribution Width 16.3 % (11.5-14.5); Red Blood Cell (RBC) Count 1.94 mill/uL (4.20-5.40); White Blood Cell (WBC) Count 5.6 thou/uL (4.8-10.8)
[2021-01-14 00:47] LABS: ALT (SGPT) 20 U/L (8-55); AST (SGOT) 12 U/L (5-34); Albumin 2.7 g/dL (3.5-5.0); Alkaline Phosphatase 137 U/L (40-110); Anion Gap 22 mmol/L (10-20); BUN (Urea Nitrogen) 99 mg/dL (9.8-20.1); Bilirubin, Total 0.4 mg/dL (0.2-1.2); Calc. Creatinine Clearance 0 mL/min (70-130); Calcium 8.1 mg/dL (7.8-10.44); Carbon Dioxide 22 mmol/L (22-29); Chloride 99 mmol/L (98-107); Globulin 2.6 g/dL (2.4-3.5); Glucose 523 mg/dL (70-105); Lipase 79 U/L (8-78); Potassium 5.6 mmol/L (3.5-5.1); Protein, Total 5.3 g/dL (6.0-8.3); Sodium 137 mmol/L (136-145)
[2021-01-14] MEDS ORDERED: Insulin Regular 300 UNITS/3 ML VIAL ONE (01:12)
[2021-01-14] MEDS ORDERED: Acetaminophen 500 MG TAB ONE (01:34)
[2021-01-14] MEDS ORDERED: HYDROcodone/Acetaminophen 5/325 mg Tablet ONE (04:28)
== END 2021-01-14 08:45 | disposition home or self-care (01) ==
LOC: ERS 23:38
DX: R10.32 Left lower quadrant pain (principal); D64.9 Anemia, unspecified; N18.6 End stage renal disease; E11.65 Type 2 diabetes mellitus with hyperglycemia; E11.22 Type 2 diabetes mellitus with diabetic chronic kidney disease; I13.2 Hypertensive heart and chronic kidney disease with heart failure and with stage 5 chronic kidney disease, or end stage renal disease; I50.9 Heart failure, unspecified; E03.9 Hypothyroidism, unspecified; E78.5 Hyperlipidemia, unspecified; E78.00 Pure hypercholesterolemia, unspecified; E66.9 Obesity, unspecified; Z99.2 Dependence on renal dialysis; Z79.899 Other long term (current) drug therapy; Z79.4 Long term (current) use of insulin
CPT/HCPCS: 36430; 74177; 80053; 82962; 83690; 85025; 86850; 86900; 86901; 86920; 93005; 96374; 96375; 99284; P9016; 36416; J1815; J1885

== ENCOUNTER 2021-01-17 17:07 | Emergency (ER) | payer MEDICARE, MEDICAID ==
[2021-01-17 18:03] LABS: #Eosinphils 0.1 thou/uL (0.0-0.7); #Lymphocytes 0.9 thou/uL (1.20-3.40); #Monocytes 0.4 thou/uL (0.11-0.59); #Neutrophils 3.7 thou/uL (1.40-6.50); %Basophils 0.8 % (0.0-1.0); %Eosinophils 1.3 % (0.0-10.0); %Lymphocytes 17.8 % (21.0-51.0); %Neutrophils 72.1 % (42.0-75.0); Hemoglobin 7.8 g/dL (12.0-16.0); Mean Corpuscular HGB CONC 34.6 g/dL (32.0-36.0); Mean Corpuscular Hemoglobin 33.8 pg (27.0-31.0); Mean Corpuscular Volume 97.6 fL (78.0-98.0); Mean Platelet Volume 8.7 fL (7.4-10.4); Platelet Count 235 thou/uL (130-400); RBC Distribution Width 15.3 % (11.5-14.5); Red Blood Cell (RBC) Count 2.32 mill/uL (4.20-5.40); White Blood Cell (WBC) Count 5.1 thou/uL (4.8-10.8)
[2021-01-17 18:22] LABS: ALT (SGPT) 19 U/L (8-55); AST (SGOT) 13 U/L (5-34); Albumin 3.1 g/dL (3.5-5.0); Alkaline Phosphatase 106 U/L (40-110); Anion Gap 17 mmol/L (10-20); BUN (Urea Nitrogen) 56 mg/dL (9.8-20.1); Bilirubin, Total 0.4 mg/dL (0.2-1.2); Calc. Creatinine Clearance 0 mL/min (70-130); Calcium 8.6 mg/dL (7.8-10.44); Carbon Dioxide 28 mmol/L (22-29); Chloride 98 mmol/L (98-107); Globulin 3.3 g/dL (2.4-3.5); Glucose 405 mg/dL (70-105); Lipase 60 U/L (8-78); Potassium 4.8 mmol/L (3.5-5.1); Protein, Total 6.4 g/dL (6.0-8.3); Sodium 138 mmol/L (136-145)
== END 2021-01-17 19:30 | disposition home or self-care (01) ==
LOC: ERS 17:07
DX: D64.9 Anemia, unspecified (principal); E03.9 Hypothyroidism, unspecified; E66.9 Obesity, unspecified; E78.5 Hyperlipidemia, unspecified; I11.0 Hypertensive heart disease with heart failure; I50.9 Heart failure, unspecified; E11.9 Type 2 diabetes mellitus without complications
CPT/HCPCS: 80053; 82274; 83690; 85025; 86850; 86900; 86901; 99284

== ENCOUNTER 2021-03-17 15:03 | Inpatient (IN) | payer MEDICARE, MEDICAID ==
[~2021-03-17 15:03] MED LIST: Iopamidol-370 76% 500 ML 1 ML ONE
[2021-03-17 17:17] LABS: #Eosinphils 0.1 thou/uL (0.0-0.7); #Lymphocytes 0.8 thou/uL (1.20-3.40); #Monocytes 0.3 thou/uL (0.11-0.59); #Neutrophils 4.8 thou/uL (1.40-6.50); %Basophils 0.4 % (0.0-1.0); %Eosinophils 2.2 % (0.0-10.0); %Lymphocytes 12.9 % (21.0-51.0); %Monocytes 4.5 % (0.0-10.0); %Neutrophils 80.1 % (42.0-75.0); Hemoglobin 12.9 g/dL (12.0-16.0); Mean Corpuscular HGB CONC 31.8 g/dL (32.0-36.0); Mean Corpuscular Volume 91.3 fL (78.0-98.0); Platelet Count 141 thou/uL (130-400); RBC Distribution Width 13.9 % (11.5-14.5); Red Blood Cell (RBC) Count 4.46 mill/uL (4.20-5.40); White Blood Cell (WBC) Count 5.9 thou/uL (4.8-10.8)
[2021-03-17 17:47] LABS: ALT (SGPT) 8 U/L (8-55); AST (SGOT) 8 U/L (5-34); Albumin 3.7 g/dL (3.5-5.0); Alkaline Phosphatase 85 U/L (40-110); Anion Gap 21 mmol/L (10-20); BUN (Urea Nitrogen) 48 mg/dL (9.8-20.1); Bilirubin, Total 0.4 mg/dL (0.2-1.2); Calc. Creatinine Clearance 0 mL/min (70-130); Calcium 9.4 mg/dL (7.8-10.44); Carbon Dioxide 25 mmol/L (22-29); Chloride 93 mmol/L (98-107); Globulin 3.3 g/dL (2.4-3.5); Glucose 446 mg/dL (70-105); Sodium 134 mmol/L (136-145)
[2021-03-17 17:58] LABS: CKMB 2.7 ng/mL (0-6.6)
[2021-03-17] MEDS ORDERED: Lisinopril 10 MG TAB ONE (20:35)
[2021-03-17] MEDS ORDERED: Nitroglycerin 2% Ointment 1 INCH/1 GM Packet ONE (20:36)
[2021-03-17] MEDS ORDERED: Dextrose 50% Abboject 50 ML SYRINGE SLOW IVP PRN (21:00)
[2021-03-17] MEDS ORDERED: HumaLOG 300 UNITS/3 ML VIAL SC PRN (21:00)
[2021-03-17] MEDS ORDERED: Dextrose 5% in Water 1,000 ML IV PRN (21:00)
[2021-03-17] MEDS ORDERED: Heparin 5,000 UNITS/ML VIAL SC SCH (21:00)
[2021-03-17] MEDS ORDERED: Aspirin Chewable 81 MG TAB PO SCH (21:30)
[2021-03-17] MEDS ORDERED: Lidocaine Viscous Sol 2% 15 ml UD Cup ONE (22:07)
[2021-03-17] MEDS ORDERED: Mag-Al 1200 mg/1200 mg/30 ML UDCUP ONE (22:07)
[2021-03-17 22:23] LABS: Magnesium 1.9 mg/dL (1.6-2.6)
[2021-03-17 22:27] LABS: Troponin I 0.089 ng/mL (< 0.028)
[2021-03-17] MEDS ORDERED: Lidocaine 2% Viscous Solution 10 ML, Aluminum & Magnesium Hydroxide 20 ML, Donnatal Eli... SSW SCH (22:30)
[2021-03-17] MEDS ORDERED: Aspirin Chewable 81 MG TAB ONE (22:44)
[2021-03-17] MEDS ORDERED: hydrALAZINE 20 MG/ML VIAL ONE (22:45)
[2021-03-17] MEDS ORDERED: HumaLOG 300 UNITS/3 ML VIAL ONE (22:45)
[2021-03-17] MEDS ORDERED: Acetaminophen 325 MG TAB ONE (23:49)
[2021-03-17] MEDS ORDERED: Lantus 1000 UNITS/10 ML VIAL SC SCH (23:59)
[2021-03-18] MEDS: Acetaminophen 325 MG TAB PO PRN (00:03)
[2021-03-18] MEDS ORDERED: Lantus 1000 UNITS/10 ML VIAL SC SCH ×3 (00:15→21:00)
[2021-03-18 01:28] LABS: Troponin I 0.107 ng/mL (< 0.028)
[2021-03-18] MEDS ORDERED: HumaLOG 300 UNITS/3 ML VIAL ONE (05:39)
[2021-03-18] MEDS: HumaLOG 300 UNITS/3 ML VIAL SC PRN (05:41)
[2021-03-18 06:25] LABS: #Eosinphils 0.2 thou/uL (0.0-0.7); #Lymphocytes 1.1 thou/uL (1.20-3.40); #Monocytes 0.4 thou/uL (0.11-0.59); #Neutrophils 4.3 thou/uL (1.40-6.50); %Basophils 0.6 % (0.0-1.0); %Eosinophils 2.7 % (0.0-10.0); %Lymphocytes 17.8 % (21.0-51.0); %Monocytes 6.5 % (0.0-10.0); %Neutrophils 72.4 % (42.0-75.0); Hemoglobin 12.5 g/dL (12.0-16.0); Mean Corpuscular HGB CONC 32.8 g/dL (32.0-36.0); Mean Corpuscular Hemoglobin 29.6 pg (27.0-31.0); Mean Corpuscular Volume 90.1 fL (78.0-98.0); Mean Platelet Volume 10.9 fL (7.4-10.4); Platelet Count 149 thou/uL (130-400); Red Blood Cell (RBC) Count 4.22 mill/uL (4.20-5.40); White Blood Cell (WBC) Count 5.9 thou/uL (4.8-10.8)
[2021-03-18 06:40] LABS: Lactic Acid 1.5 mmol/L (0.5-2.2)
[2021-03-18 06:44] LABS: Anion Gap 20 mmol/L (10-20); BUN (Urea Nitrogen) 50 mg/dL (9.8-20.1); Calc. Creatinine Clearance 0 mL/min (70-130); Calcium 9.6 mg/dL (7.8-10.44); Carbon Dioxide 26 mmol/L (22-29); Chloride 94 mmol/L (98-107); Glucose 215 mg/dL (70-105); Sodium 135 mmol/L (136-145)
[2021-03-18] MEDS ORDERED: Aspirin Chewable 81 MG TAB ONE (08:47)
[2021-03-18] MEDS ORDERED: hydrALAZINE 20 MG/ML VIAL SLOW IVP SCH (10:45)
[2021-03-18] MEDS ORDERED: Regadenoson 0.4 MG/5 ML SYRINGE ONE (11:00)
[2021-03-18] MEDS ORDERED: hydrALAZINE 20 MG/ML VIAL ONE (11:18)
[2021-03-18] MEDS: Aspirin Chewable 81 MG TAB PO SCH (11:21)
[2021-03-18 13:24] LABS: SARS-CoV-2 PCR by NAA DETECTED (NotDetected)
[2021-03-18] MEDS ORDERED: Gabapentin 100 MG CAP PO PRN (13:50)
[2021-03-18] MEDS ORDERED: Ondansetron ODT 4 MG TAB PO PRN (13:50)
[2021-03-18] MEDS ORDERED: Rivaroxaban 15 MG TAB PO SCH (14:00)
[2021-03-18] MEDS ORDERED: Apixaban 5 MG TAB PO SCH (14:45)
[2021-03-18] MEDS: HumaLOG 300 UNITS/3 ML VIAL SC SCH (19:00)
[2021-03-18] MEDS: Sevelamer Carbonate 800 MG TAB PO SCH (20:28)
[2021-03-18] MEDS: Icosapent Ethyl 1 GM CAPSULE PO SCH (20:28)
[2021-03-18] MEDS: Calcium Acetate 667 MG CAP PO SCH (20:29)
[2021-03-19 01:20] LABS: HBSAg Index 0.24 S/CO (0-0.99); Hep B Surf Ag Non-Reactive S/CO (NonReactive)
[2021-03-19] MEDS: Lantus 1000 UNITS/10 ML VIAL SC SCH ×3 (01:54→21:39)
[2021-03-19] MEDS: HumaLOG 300 UNITS/3 ML VIAL SC SCH ×4 (01:54→21:47)
[2021-03-19] MEDS: Atorvastatin Calcium 40 MG TAB PO SCH ×2 (02:05→21:41)
[2021-03-19] MEDS: NIFEdipine XL 30 MG TAB PO SCH ×2 (02:06→21:41)
[2021-03-19] MEDS: Lisinopril 20 MG TAB PO SCH ×2 (02:06→21:41)
[2021-03-19] MEDS: Apixaban 5 MG TAB PO SCH ×3 (02:06→21:41)
[2021-03-19 04:27] VITALS: BMI 47.6
[2021-03-19] MEDS: Levothyroxine Sodium 25 MCG TAB PO SCH (06:14)
[2021-03-19] MEDS: Aspirin Chewable 81 MG TAB PO SCH (08:47)
[2021-03-19] MEDS: Icosapent Ethyl 1 GM CAPSULE PO SCH ×2 (08:48→16:59)
[2021-03-19] MEDS: Sevelamer Carbonate 800 MG TAB PO SCH ×3 (08:48→16:59)
[2021-03-19] MEDS: Calcium Acetate 667 MG CAP PO SCH ×3 (08:48→16:59)
[2021-03-19] MEDS ORDERED: Rivaroxaban 15 MG TAB PO SCH (09:00)
[2021-03-19] MEDS ORDERED: FLU VACC QS2021-22(6MOS UP)/PF 60 MCG/0.5 ML SYRINGE IM ONE (09:00)
[2021-03-19] MEDS ORDERED: Simethicone Chewable 80 MG TAB PO SCH (09:45)
[2021-03-19] MEDS: HumaLOG 300 UNITS/3 ML VIAL SC PRN (11:55)
[2021-03-19] MEDS: Acetaminophen 325 MG TAB PO PRN ×2 (17:04→21:50)
[2021-03-19] MEDS ORDERED: Ondansetron ODT 4 MG TAB PO PRN (17:35)
[2021-03-19] MEDS ORDERED: hydrALAZINE 25 MG TAB PO PRN (18:12)
[2021-03-19 21:23] LABS: #Eosinphils 0.1 thou/uL (0.0-0.7); #Lymphocytes 0.7 thou/uL (1.20-3.40); #Monocytes 0.3 thou/uL (0.11-0.59); #Neutrophils 3.9 thou/uL (1.40-6.50); %Basophils 0.4 % (0.0-1.0); %Eosinophils 2.5 % (0.0-10.0); %Monocytes 6.6 % (0.0-10.0); %Neutrophils 76.4 % (42.0-75.0); Mean Corpuscular HGB CONC 32.2 g/dL (32.0-36.0); Mean Corpuscular Hemoglobin 29.3 pg (27.0-31.0); Mean Corpuscular Volume 91.1 fL (78.0-98.0); Platelet Count 161 thou/uL (130-400); RBC Distribution Width 13.9 % (11.5-14.5); White Blood Cell (WBC) Count 5.1 thou/uL (4.8-10.8)
[2021-03-19 21:43] LABS: ALT (SGPT) Less than 7 U/L (8-55); AST (SGOT) 9 U/L (5-34); Albumin 3.2 g/dL (3.5-5.0); Alkaline Phosphatase 63 U/L (40-110); Anion Gap 14 mmol/L (10-20); BUN (Urea Nitrogen) 31 mg/dL (9.8-20.1); Bilirubin, Total 0.3 mg/dL (0.2-1.2); Calc. Creatinine Clearance 15 mL/min (70-130); Calcium 9.5 mg/dL (7.8-10.44); Carbon Dioxide 32 mmol/L (22-29); Chloride 94 mmol/L (98-107); Globulin 3.3 g/dL (2.4-3.5); Glucose 159 mg/dL (70-105); Potassium 4.3 mmol/L (3.5-5.1); Protein, Total 6.5 g/dL (6.0-8.3); Sodium 136 mmol/L (136-145)
[2021-03-19] MEDS: Polyethylene Glycol 3350 17 GM Packet PO SCH (22:50)
[2021-03-20] MEDS: Levothyroxine Sodium 25 MCG TAB PO SCH (05:19)
[2021-03-20 06:21] LABS: #Eosinphils 0.1 thou/uL (0.0-0.7); #Lymphocytes 0.9 thou/uL (1.20-3.40); #Monocytes 0.5 thou/uL (0.11-0.59); #Neutrophils 3.1 thou/uL (1.40-6.50); %Basophils 0.9 % (0.0-1.0); %Eosinophils 3.1 % (0.0-10.0); %Lymphocytes 19.6 % (21.0-51.0); %Monocytes 9.9 % (0.0-10.0); %Neutrophils 66.6 % (42.0-75.0); Hemoglobin 11.8 g/dL (12.0-16.0); Mean Corpuscular HGB CONC 31.1 g/dL (32.0-36.0); Mean Corpuscular Hemoglobin 28.4 pg (27.0-31.0); Mean Corpuscular Volume 91.3 fL (78.0-98.0); Mean Platelet Volume 10.5 fL (7.4-10.4); Platelet Count 167 thou/uL (130-400); RBC Distribution Width 13.8 % (11.5-14.5); Red Blood Cell (RBC) Count 4.16 mill/uL (4.20-5.40); White Blood Cell (WBC) Count 4.6 thou/uL (4.8-10.8)
[2021-03-20 06:45] LABS: ALT (SGPT) 8 U/L (8-55); AST (SGOT) 8 U/L (5-34); Albumin 3.2 g/dL (3.5-5.0); Alkaline Phosphatase 67 U/L (40-110); Anion Gap 17 mmol/L (10-20); BUN (Urea Nitrogen) 32 mg/dL (9.8-20.1); Bilirubin, Total 0.3 mg/dL (0.2-1.2); Calc. Creatinine Clearance 14 mL/min (70-130); Calcium 9.4 mg/dL (7.8-10.44); Carbon Dioxide 28 mmol/L (22-29); Chloride 94 mmol/L (98-107); Globulin 3.4 g/dL (2.4-3.5); Glucose 135 mg/dL (70-105); Potassium 4.1 mmol/L (3.5-5.1); Protein, Total 6.6 g/dL (6.0-8.3); Sodium 135 mmol/L (136-145)
[2021-03-20] MEDS ORDERED: Lactated Ringer's 1,000 ML IV SCH (07:00)
[2021-03-20] MEDS: Calcium Acetate 667 MG CAP PO SCH ×2 (08:06→13:18)
[2021-03-20] MEDS: Sevelamer Carbonate 800 MG TAB PO SCH ×2 (08:07→13:18)
[2021-03-20] MEDS: Apixaban 5 MG TAB PO SCH (08:07)
[2021-03-20] MEDS: Icosapent Ethyl 1 GM CAPSULE PO SCH (08:07)
[2021-03-20] MEDS: Polyethylene Glycol 3350 17 GM Packet PO SCH ×2 (08:08→08:12)
[2021-03-20] MEDS: Aspirin Chewable 81 MG TAB PO SCH (08:08)
[2021-03-20] MEDS ORDERED: Cholecalciferol 1,000 UNITS (25 MCG) TAB PO SCH (09:00)
[2021-03-20] MEDS ORDERED: Folic Acid/Vit B Comp W-C PO SCH (09:00)
[2021-03-20] MEDS ORDERED: Non-Formulary Item 1 EACH (Omeprazole [Omeprazole] 20 MG Tab.Rap.Dr) PO SCH (09:00)
[2021-03-20] MEDS: HumaLOG 300 UNITS/3 ML VIAL SC SCH (09:22)
[2021-03-20] MEDS: Lantus 1000 UNITS/10 ML VIAL SC SCH (09:22)
[2021-03-20 13:00] VITALS: TEMP 98.1
[2021-03-20 13:29] VITALS: BP 151/70
[2021-03-25] MEDS ORDERED: Apixaban 5 MG TAB PO SCH (09:00)
== END 2021-03-20 15:23 | disposition home or self-care (01) | DRG 177 ==
LOC: ERS 15:03 → ERHOLD 20:33 → 2SE 03-18 21:33 → OBSVTOIN 03-19 09:45 → 2SW 03-19 20:21
PROVIDERS: ADMIT Student in an Organized Health Care Education/Training Program; ATTEND Student in an Organized Health Care Education/Training Program
PROC: 5A1D70Z Performance of Urinary Filtration, Intermittent, Less than 6 Hours Per Day (ICD-10-PCS; principal; 2021-03-19)
DX: U07.1 COVID-19 (principal); N18.6 End stage renal disease; I13.2 Hypertensive heart and chronic kidney disease with heart failure and with stage 5 chronic kidney disease, or end stage renal disease; I48.20 Chronic atrial fibrillation, unspecified; Z68.42 Body mass index [BMI] 45.0-49.9, adult; E46 Unspecified protein-calorie malnutrition; K21.9 Gastro-esophageal reflux disease without esophagitis; I48.91 Unspecified atrial fibrillation; E78.5 Hyperlipidemia, unspecified; E03.9 Hypothyroidism, unspecified; E11.22 Type 2 diabetes mellitus with diabetic chronic kidney disease; D63.1 Anemia in chronic kidney disease; I50.9 Heart failure, unspecified; K29.70 Gastritis, unspecified, without bleeding; E66.01 Morbid (severe) obesity due to excess calories; E11.42 Type 2 diabetes mellitus with diabetic polyneuropathy; I08.1 Rheumatic disorders of both mitral and tricuspid valves; E83.39 Other disorders of phosphorus metabolism; Z95.810 Presence of automatic (implantable) cardiac defibrillator; Z79.4 Long term (current) use of insulin; Z79.899 Other long term (current) drug therapy; Z99.2 Dependence on renal dialysis; Z90.49 Acquired absence of other specified parts of digestive tract; Z90.710 Acquired absence of both cervix and uterus; Z89.421 Acquired absence of other right toe(s)
CPT/HCPCS: 36415; 36416; 71045; 74177; 76705; 78452; 80048; 80053; 82553; 83036; 83605; 83690; 83735; 83880; 84100; 84443; 84484; 85025; 87340; 90935; 93005; 93017; 93306; 96374; 96376; A9500; G0257; G0378; J0360; J1815; J2785; J7120; Q0162; Q9967; U0003; U0005

== ENCOUNTER 2022-01-27 10:50 | Outpatient (CLI) | payer MEDICARE, MEDICAID | END 2022-01-27 10:51 | disposition home or self-care (01) | LOC: BICRAD 10:50 | PROVIDERS: ATTEND Nurse Practitioner Family | DX: T81.89XA Other complications of procedures, not elsewhere classified, initial encounter (principal) | CPT/HCPCS: 36415; 71046; 80048; 80061; 80076; 83036 ==

== ENCOUNTER 2022-06-01 18:34 | Emergency (ER) | payer MEDICARE, MEDICAID ==
[2022-06-01 19:28] LABS: #Eosinphils 0.1 thou/uL (0.0-0.7); #Lymphocytes 1.2 thou/uL (1.20-3.40); #Monocytes 0.6 thou/uL (0.11-0.59); #Neutrophils 4.4 thou/uL (1.40-6.50); %Basophils 0.7 % (0.0-1.0); %Eosinophils 1.4 % (0.0-10.0); %Lymphocytes 18.5 % (21.0-51.0); %Monocytes 9.2 % (0.0-10.0); %Neutrophils 70.2 % (42.0-75.0); Hemoglobin 11.4 g/dL (12.0-16.0); Mean Corpuscular HGB CONC 33.7 g/dL (32.0-36.0); Mean Corpuscular Hemoglobin 32.1 pg (27.0-31.0); Mean Corpuscular Volume 95.1 fl (78.0-98.0); Mean Platelet Volume 9.8 fL (7.4-10.4); Platelet Count 217 10x3/uL (130-400); RBC Distribution Width 13.8 % (11.5-14.5); Red Blood Cell (RBC) Count 3.56 mill/uL (4.20-5.40); White Blood Cell (WBC) Count 6.2 10x3/uL (4.8-10.8)
[2022-06-01 19:48] LABS: ALT (SGPT) 13 U/L (8-55); AST (SGOT) 13 U/L (5-34); Albumin 3.7 g/dL (3.5-5.0); Alkaline Phosphatase 92 U/L (40-110); Anion Gap 22 mmol/L (10-20); BUN (Urea Nitrogen) 69 mg/dL (9.8-20.1); Bilirubin, Total 0.2 mg/dL (0.2-1.2); Calc. Creatinine Clearance 0 mL/min (70-130); Calcium 9.9 mg/dL (7.8-10.44); Carbon Dioxide 25 mmol/L (22-29); Chloride 96 mmol/L (98-107); Estimated GFR 6; Glucose 192 mg/dL (70-105); Protein, Total 7.7 g/dL (6.0-8.3); Sodium 136 mmol/L (136-145)
[2022-06-01 19:52] LABS: Potassium 6.9 mmol/L (3.5-5.1)
[2022-06-01] MEDS ORDERED: HumaLOG 300 UNITS/3 ML VIAL ONE (20:37)
[2022-06-01] MEDS ORDERED: CALCIUM GLUC 1 GM/NS 50 ML BAG ONE (20:37)
[2022-06-01] MEDS ORDERED: Ipratropium/Albuterol 3 ML NEB ONE (20:48)
[2022-06-01] MEDS ORDERED: Morphine 4 MG/ML VIAL ONE (21:45)
[2022-06-01 22:03] LABS: Anion Gap 21 mmol/L (10-20); BUN (Urea Nitrogen) 71 mg/dL (9.8-20.1); Calc. Creatinine Clearance 0 mL/min (70-130); Calcium 9.6 mg/dL (7.8-10.44); Carbon Dioxide 25 mmol/L (22-29); Chloride 97 mmol/L (98-107); Estimated GFR 6; Glucose 194 mg/dL (70-105); Sodium 136 mmol/L (136-145)
[2022-06-02 02:39] LABS: Hep B Core Total Ab Non-Reactive (NonReactive); Hep B Core Total Index 0.13 S/CO (0-0.79)
[2022-06-02 02:40] LABS: HBSAg Index 0.21 S/CO (0-0.99); Hep B Surf Ag Non-Reactive S/CO (NonReactive)
[2022-06-02 02:52] LABS: Hep B Surf AB Reactive (NonReactive)
[2022-06-02 11:53] LABS: Hep C IgG Ab Non-Reactive (NonReactive)
[2022-06-02 12:02] LABS: Hep C Index 0.17 S/CO (0-0.79)
== END 2022-06-02 03:42 | disposition home or self-care (01) ==
LOC: ERS 18:34
DX: E11.621 Type 2 diabetes mellitus with foot ulcer (principal); E87.5 Hyperkalemia; E11.22 Type 2 diabetes mellitus with diabetic chronic kidney disease; N18.6 End stage renal disease; I12.0 Hypertensive chronic kidney disease with stage 5 chronic kidney disease or end stage renal disease; E03.9 Hypothyroidism, unspecified; E78.00 Pure hypercholesterolemia, unspecified; Z79.899 Other long term (current) drug therapy; Z99.2 Dependence on renal dialysis; Z79.4 Long term (current) use of insulin
CPT/HCPCS: 73630; 80048; 80053; 82962; 83605; 85025; 86704; 93005; J0613; 36415; 36416; 96374; 96375; J1815; J2270; J7620

== ENCOUNTER 2022-06-03 17:14 | Emergency (ER) | payer MEDICARE, MEDICAID ==
[2022-06-03 18:32] LABS: #Basophils 0.1 thou/uL (0.0-0.2); #Eosinphils 0.1 thou/uL (0.0-0.7); #Lymphocytes 1.4 thou/uL (1.20-3.40); #Monocytes 0.9 thou/uL (0.11-0.59); #Neutrophils 5.4 thou/uL (1.40-6.50); %Basophils 0.7 % (0.0-1.0); %Eosinophils 0.7 % (0.0-10.0); %Lymphocytes 18.2 % (21.0-51.0); %Monocytes 11.6 % (0.0-10.0); %Neutrophils 68.8 % (42.0-75.0); Mean Corpuscular HGB CONC 33.3 g/dL (32.0-36.0); Mean Corpuscular Hemoglobin 32.3 pg (27.0-31.0); Mean Corpuscular Volume 96.8 fl (78.0-98.0); Mean Platelet Volume 10.4 fL (7.4-10.4); Platelet Count 199 10x3/uL (130-400); RBC Distribution Width 14.4 % (11.5-14.5); Red Blood Cell (RBC) Count 3.71 mill/uL (4.20-5.40); White Blood Cell (WBC) Count 7.9 10x3/uL (4.8-10.8)
[2022-06-03 18:58] LABS: ALT (SGPT) 11 U/L (8-55); AST (SGOT) 12 U/L (5-34); Albumin 3.8 g/dL (3.5-5.0); Alkaline Phosphatase 81 U/L (40-110); Anion Gap 18 mmol/L (10-20); BUN (Urea Nitrogen) 54 mg/dL (9.8-20.1); Bilirubin, Total 0.3 mg/dL (0.2-1.2); Calc. Creatinine Clearance 0 mL/min (70-130); Calcium 10.1 mg/dL (7.8-10.44); Carbon Dioxide 28 mmol/L (22-29); Chloride 95 mmol/L (98-107); Estimated GFR 9; Globulin 4.1 g/dL (2.4-3.5); Glucose 222 mg/dL (70-105); Potassium 5.3 mmol/L (3.5-5.1); Protein, Total 7.9 g/dL (6.0-8.3); Sodium 136 mmol/L (136-145)
== END 2022-06-03 19:15 | disposition home or self-care (01) ==
LOC: ERS 17:14
DX: S91.301A Unspecified open wound, right foot, initial encounter (principal); E11.22 Type 2 diabetes mellitus with diabetic chronic kidney disease; I13.2 Hypertensive heart and chronic kidney disease with heart failure and with stage 5 chronic kidney disease, or end stage renal disease; I50.9 Heart failure, unspecified; N18.6 End stage renal disease; E03.9 Hypothyroidism, unspecified; E78.5 Hyperlipidemia, unspecified; Z99.2 Dependence on renal dialysis; X58.XXXA Exposure to other specified factors, initial encounter; Z79.899 Other long term (current) drug therapy; Z79.4 Long term (current) use of insulin
CPT/HCPCS: 80053; 85025; 87070; 87186; 87205

== ENCOUNTER 2022-07-10 19:02 | Emergency (ER) | payer MEDICARE, MEDICAID ==
[2022-07-10] MEDS ORDERED: Orphenadrine Citrate 60 MG/2 ML VIAL ONE (20:56)
[2022-07-10] MEDS ORDERED: Diazepam 2 MG TAB PO SCH (21:15)
== END 2022-07-10 22:05 | disposition home or self-care (01) ==
LOC: ERS 19:02
DX: M54.9 Dorsalgia, unspecified (principal); I11.0 Hypertensive heart disease with heart failure; I50.9 Heart failure, unspecified; E11.9 Type 2 diabetes mellitus without complications; E03.9 Hypothyroidism, unspecified; Z79.4 Long term (current) use of insulin; Z79.899 Other long term (current) drug therapy
CPT/HCPCS: 72020; 96372; J2360

== ENCOUNTER 2023-04-22 11:10 | Emergency (ER) | payer MEDICARE, MEDICAID ==
[2023-04-22 12:48] LABS: #Basophils 0.1 thou/uL (0.0-0.2); #Eosinphils 0.2 thou/uL (0.0-0.7); #Monocytes 0.4 thou/uL (0.11-0.59); #Neutrophils 3.8 thou/uL (1.40-6.50); %Basophils 1.2 % (0.0-1.0); %Eosinophils 4.2 % (0.0-10.0); %Lymphocytes 14.3 % (21.0-51.0); %Monocytes 6.7 % (0.0-10.0); %Neutrophils 73.2 % (42.0-75.0); Hematocrit 34.4 % (36.0-47.0); Hemoglobin 11.5 g/dL (12.0-16.0); Mean Corpuscular HGB CONC 33.4 g/dL (32.0-36.0); Mean Corpuscular Hemoglobin 32.2 pg (27.0-31.0); Mean Corpuscular Volume 96.4 fl (78.0-98.0); Mean Platelet Volume 11.3 fL (7.4-10.4); Platelet Count 255 10x3/uL (130-400); RBC Distribution Width 13.8 % (11.5-14.5); Red Blood Cell (RBC) Count 3.57 mill/uL (4.20-5.40); White Blood Cell (WBC) Count 5.2 10x3/uL (4.8-10.8)
[2023-04-22 13:16] LABS: ALT (SGPT) 12 U/L (8-55); AST (SGOT) 13 U/L (5-34); Alkaline Phosphatase 86 U/L (40-110); Anion Gap 14 mmol/L (10-20); BUN (Urea Nitrogen) 22 mg/dL (9.8-20.1); Bilirubin, Total 0.4 mg/dL (0.2-1.2); Calc. Creatinine Clearance 0 mL/min (70-130); Calcium 9.9 mg/dL (7.8-10.44); Carbon Dioxide 32 mmol/L (22-29); Chloride 97 mmol/L (98-107); Estimated GFR 14; Globulin 4.2 g/dL (2.4-3.5); Glucose 166 mg/dL (70-105); Potassium 4.3 mmol/L (3.5-5.1); Protein, Total 8.2 g/dL (6.0-8.3); Sodium 139 mmol/L (136-145)
[2023-04-22] MEDS ORDERED: Acetaminophen 500 MG TAB ONE (13:26)
[2023-04-22] MEDS ORDERED: Iopamidol-370 76% 500 ML MDV (1 ML CHARGE) ONE (13:38)
== END 2023-04-22 16:45 | disposition home or self-care (01) ==
LOC: ERS 11:10
DX: L03.312 Cellulitis of back [any part except buttock and flank] (principal); I13.0 Hypertensive heart and chronic kidney disease with heart failure and stage 1 through stage 4 chronic kidney disease, or unspecified chronic kidney disease; E11.22 Type 2 diabetes mellitus with diabetic chronic kidney disease; N18.9 Chronic kidney disease, unspecified; I50.9 Heart failure, unspecified; Z99.2 Dependence on renal dialysis
CPT/HCPCS: 74177; 80053; 83605; 85025; Q9967

== ENCOUNTER 2023-04-26 18:48 | Inpatient (IN) | payer MEDICARE, MEDICAID ==
[2023-04-26] MEDS ORDERED: Dextrose 5% in Water 1,000 ML IV PRN (21:42)
[2023-04-26] MEDS ORDERED: Glucagon 1 MG/ML KIT IM PRN (21:42)
[2023-04-26] MEDS ORDERED: Dextrose 50% Abboject 50 ML SYRINGE SLOW IVP PRN (21:42)
[2023-04-26] MEDS ORDERED: HumaLOG 300 UNITS/3 ML VIAL SC PRN ×3 (21:44→22:15)
[2023-04-26] MEDS ORDERED: Piperacillin/Tazobactam 3.375 GM in Sodium Chloride 0.9% 100 ML IVPB SCH (22:30)
[2023-04-26 22:40] LABS: #Eosinphils 0.3 thou/uL (0.0-0.7); #Monocytes 0.6 thou/uL (0.11-0.59); %Basophils 0.7 % (0.0-1.0); %Eosinophils 5.1 % (0.0-10.0); %Lymphocytes 17.3 % (21.0-51.0); %Monocytes 9.8 % (0.0-10.0); %Neutrophils 66.8 % (42.0-75.0); Hematocrit 31.3 % (36.0-47.0); Hemoglobin 10.4 g/dL (12.0-16.0); Mean Corpuscular HGB CONC 33.2 g/dL (32.0-36.0); Mean Corpuscular Hemoglobin 32.1 pg (27.0-31.0); Mean Corpuscular Volume 96.6 fl (78.0-98.0); Mean Platelet Volume 11.3 fL (7.4-10.4); Platelet Count 261 10x3/uL (130-400); RBC Distribution Width 13.9 % (11.5-14.5); Red Blood Cell (RBC) Count 3.24 mill/uL (4.20-5.40); White Blood Cell (WBC) Count 5.9 10x3/uL (4.8-10.8)
[2023-04-26 22:55] LABS: Anion Gap 24 mmol/L (10-20); BUN (Urea Nitrogen) 59 mg/dL (9.8-20.1); Calc. Creatinine Clearance 0 mL/min (70-130); Calcium 8.3 mg/dL (7.8-10.44); Carbon Dioxide 22 mmol/L (22-29); Chloride 97 mmol/L (98-107); Estimated GFR 6; Glucose 165 mg/dL (70-105); Sodium 137 mmol/L (136-145)
[2023-04-26 23:02] LABS: Potassium 6.2 mmol/L (3.5-5.1)
[2023-04-26] MEDS ORDERED: Piperacillin/Tazobactam 4.5 GM VIAL ONE (23:18)
[2023-04-26] MEDS ORDERED: Sodium Chloride 0.9% 100 ML ONE (23:19)
[2023-04-26] MEDS ORDERED: Vancomycin Diaylsis Sliding Scale (Wt 71-99) FS SCH (23:30)
[2023-04-26] MEDS ORDERED: Dextrose 50% Abboject 50 ML SYRINGE SLOW IVP SCH (23:45)
[2023-04-27] MEDS: Piperacillin/Tazobactam 3.375 GM in Sodium Chloride 0.9% 100 ML IVPB SCH ×2 (00:03→04:59)
[2023-04-27] MEDS: Vancomycin (BATCH) 2 GM in Premix 1 BAG IVPB SCH (01:07)
[2023-04-27 01:19] LABS: Hemoglobin A1c 8.2 % (4.0-6.0)
[2023-04-27] MEDS ORDERED: Insulin Regular 300 UNITS/3 ML VIAL ONE (01:19)
[2023-04-27] MEDS: Insulin Regular 300 UNITS/3 ML VIAL IVP SCH (01:36)
[2023-04-27] MEDS ORDERED: Piperacillin/Tazobactam 3.375 GM VIAL ONE (04:11)
[2023-04-27] MEDS ORDERED: Sodium Chloride 0.9% 100 ML ONE (04:11)
[2023-04-27 08:34] LABS: Vancomycin, Random 28.7 ug/mL (See Comment)
[2023-04-27] MEDS ORDERED: Gabapentin 100 MG CAP ONE (08:55)
[2023-04-27] MEDS ORDERED: Aspirin Chewable 81 MG TAB ONE (08:55)
[2023-04-27] MEDS ORDERED: Insulin Glargine 30 UNITS/0.3 ML VIAL SC SCH (09:00)
[2023-04-27] MEDS ORDERED: HumaLOG 300 UNITS/3 ML VIAL SC SCH (09:00)
[2023-04-27 10:45] LABS: #Basophils 0.1 thou/uL (0.0-0.2); #Eosinphils 0.3 thou/uL (0.0-0.7); #Monocytes 0.3 thou/uL (0.11-0.59); #Neutrophils 4.2 thou/uL (1.40-6.50); %Basophils 1.1 % (0.0-1.0); %Eosinophils 4.9 % (0.0-10.0); %Lymphocytes 12.2 % (21.0-51.0); %Neutrophils 75.6 % (42.0-75.0); Hematocrit 32.6 % (36.0-47.0); Hemoglobin 10.7 g/dL (12.0-16.0); Mean Corpuscular HGB CONC 32.8 g/dL (32.0-36.0); Mean Corpuscular Hemoglobin 31.4 pg (27.0-31.0); Mean Corpuscular Volume 95.6 fl (78.0-98.0); Mean Platelet Volume 11.1 fL (7.4-10.4); Platelet Count 257 10x3/uL (130-400); Red Blood Cell (RBC) Count 3.41 mill/uL (4.20-5.40); White Blood Cell (WBC) Count 5.5 10x3/uL (4.8-10.8)
[2023-04-27 11:12] LABS: ALT (SGPT) 11 U/L (8-55); AST (SGOT) 12 U/L (5-34); Albumin 3.8 g/dL (3.5-5.0); Alkaline Phosphatase 80 U/L (40-110); Anion Gap 20 mmol/L (10-20); BUN (Urea Nitrogen) 46 mg/dL (9.8-20.1); Bilirubin, Total 0.3 mg/dL (0.2-1.2); Calc. Creatinine Clearance 17 mL/min (70-130); Calcium 8.7 mg/dL (7.8-10.44); Carbon Dioxide 22 mmol/L (22-29); Chloride 99 mmol/L (98-107); Estimated GFR 8; Glucose 129 mg/dL (70-105); Potassium 5.1 mmol/L (3.5-5.1); Protein, Total 7.8 g/dL (6.0-8.3); Sodium 136 mmol/L (136-145)
[2023-04-27] MEDS ORDERED: Acetaminophen 325 MG TAB ONE (11:14)
[2023-04-27] MEDS: Gabapentin 100 MG CAP PO SCH (11:21)
[2023-04-27] MEDS: Aspirin Chewable 81 MG TAB PO SCH (11:21)
[2023-04-27] MEDS: Acetaminophen 325 MG TAB PO PRN (11:22)
[2023-04-27] MEDS: Levothyroxine Sodium 25 MCG TAB PO SCH (12:44)
[2023-04-27] MEDS: Calcium Acetate 667 MG CAP PO SCH (16:39)
[2023-04-27] MEDS: HumaLOG 300 UNITS/3 ML VIAL SC SCH (16:39)
[2023-04-27] MEDS: Cyanocobalamin (Vitamin B-12) 1,000 MCG TAB PO SCH (16:40)
[2023-04-27] MEDS: Icosapent Ethyl 1 GM CAPSULE PO SCH (16:40)
[2023-04-27] MEDS: Sevelamer Carbonate 800 MG TAB PO SCH (16:40)
[2023-04-27] MEDS: Heparin 5,000 UNITS/ML VIAL SC SCH (16:41)
[2023-04-27] MEDS: Ezetimibe 10 MG TAB PO SCH (16:41)
[2023-04-27] MEDS: Insulin Glargine 30 UNITS/0.3 ML VIAL SC SCH (16:41)
[2023-04-27] MEDS: traMADol HCl 50 MG TAB PO SCH (16:42)
[2023-04-27] MEDS: Piperacillin/Tazobactam 2.25 GM in Sodium Chloride 0.9% 100 ML IVPB SCH (16:43)
[2023-04-27] MEDS: fentaNYL 50 mcg/mL 1 mL Vial SLOW IVP PRN (17:27)
[2023-04-27] MEDS ORDERED: Lisinopril 20 MG TAB PO SCH (21:00)
[2023-04-27] MEDS ORDERED: Atorvastatin Calcium 20 MG TAB PO SCH (21:00)
[2023-04-27] MEDS: NIFEdipine XL 30 MG ER.TAB PO SCH (22:37)
[2023-04-27] MEDS: Acetaminophen 325 MG TAB PO SCH (22:39)
[2023-04-27] MEDS: Atorvastatin Calcium 40 MG TAB PO SCH (22:40)
[2023-04-27] MEDS: Cyclobenzaprine 10 MG TAB PO SCH (22:40)
[2023-04-28 04:11] VITALS: BMI 41.0
[2023-04-28 05:43] LABS: #Basophils 0.1 thou/uL (0.0-0.2); #Eosinphils 0.3 thou/uL (0.0-0.7); #Monocytes 0.5 thou/uL (0.11-0.59); #Neutrophils 2.9 thou/uL (1.40-6.50); %Basophils 1.1 % (0.0-1.0); %Eosinophils 5.6 % (0.0-10.0); %Lymphocytes 20.3 % (21.0-51.0); %Monocytes 10.8 % (0.0-10.0); Hematocrit 31.2 % (36.0-47.0); Hemoglobin 9.9 g/dL (12.0-16.0); Mean Corpuscular HGB CONC 31.7 g/dL (32.0-36.0); Mean Corpuscular Hemoglobin 31.2 pg (27.0-31.0); Mean Corpuscular Volume 98.4 fl (78.0-98.0); Mean Platelet Volume 11.3 fL (7.4-10.4); Platelet Count 237 10x3/uL (130-400); Red Blood Cell (RBC) Count 3.17 mill/uL (4.20-5.40); White Blood Cell (WBC) Count 4.6 10x3/uL (4.8-10.8)
[2023-04-28 06:06] LABS: ALT (SGPT) 10 U/L (8-55); AST (SGOT) 11 U/L (5-34); Albumin 3.2 g/dL (3.5-5.0); Alkaline Phosphatase 74 U/L (40-110); Anion Gap 17 mmol/L (10-20); BUN (Urea Nitrogen) 26 mg/dL (9.8-20.1); Bilirubin, Total 0.2 mg/dL (0.2-1.2); Calc. Creatinine Clearance 22 mL/min (70-130); Calcium 8.6 mg/dL (7.8-10.44); Carbon Dioxide 29 mmol/L (22-29); Chloride 95 mmol/L (98-107); Estimated GFR 10; Globulin 3.4 g/dL (2.4-3.5); Glucose 212 mg/dL (70-105); Potassium 4.6 mmol/L (3.5-5.1); Protein, Total 6.6 g/dL (6.0-8.3); Sodium 136 mmol/L (136-145)
[2023-04-28] MEDS ORDERED: Epoetin (ESRD) 20,000 UNITS/ML MDV SC SCH (07:15)
[2023-04-28] MEDS ORDERED: CEFAZOLIN 1 GM VIAL SLOW IVP SCH (09:00)
[2023-04-28] MEDS: Saccharomyces boulardii 250 MG CAP PO SCH (09:43)
[2023-04-28] MEDS: Metamucil PACK PO SCH (09:44)
[2023-04-28] MEDS: HumaLOG 300 UNITS/3 ML VIAL SC PRN (09:45)
[2023-04-28] MEDS: EPOETIN ALFA-EPBX (ESRD) 10,000 UNITS/ML VIAL SC SCH (15:47)
[2023-04-29 04:16] LABS: #Basophils 0.1 thou/uL (0.0-0.2); #Eosinphils 0.3 thou/uL (0.0-0.7); #Monocytes 0.6 thou/uL (0.11-0.59); #Neutrophils 3.1 thou/uL (1.40-6.50); %Eosinophils 5.4 % (0.0-10.0); %Lymphocytes 20.1 % (21.0-51.0); %Monocytes 11.4 % (0.0-10.0); %Neutrophils 61.9 % (42.0-75.0); Hematocrit 30.3 % (36.0-47.0); Hemoglobin 9.6 g/dL (12.0-16.0); Mean Corpuscular HGB CONC 31.7 g/dL (32.0-36.0); Mean Corpuscular Hemoglobin 31.2 pg (27.0-31.0); Mean Corpuscular Volume 98.4 fl (78.0-98.0); Platelet Count 237 10x3/uL (130-400); RBC Distribution Width 13.8 % (11.5-14.5); Red Blood Cell (RBC) Count 3.08 mill/uL (4.20-5.40)
[2023-04-29 04:34] LABS: ALT (SGPT) 10 U/L (8-55); AST (SGOT) 10 U/L (5-34); Albumin 3.3 g/dL (3.5-5.0); Alkaline Phosphatase 75 U/L (40-110); Anion Gap 18 mmol/L (10-20); BUN (Urea Nitrogen) 38 mg/dL (9.8-20.1); Bilirubin, Total 0.2 mg/dL (0.2-1.2); Calc. Creatinine Clearance 16 mL/min (70-130); Carbon Dioxide 28 mmol/L (22-29); Chloride 94 mmol/L (98-107); Estimated GFR 7; Globulin 3.5 g/dL (2.4-3.5); Glucose 174 mg/dL (70-105); Potassium 4.9 mmol/L (3.5-5.1); Protein, Total 6.8 g/dL (6.0-8.3); Sodium 135 mmol/L (136-145)
[2023-04-29] MEDS: Lisinopril 20 MG TAB PO SCH (12:56)
[2023-04-29] MEDS: CEFAZOLIN 1 GM in Sodium Chloride 0.9% 100 ML IVPB SCH (16:13)
[2023-04-30 05:11] LABS: #Basophils 0.1 thou/uL (0.0-0.2); #Eosinphils 0.3 thou/uL (0.0-0.7); #Monocytes 0.6 thou/uL (0.11-0.59); #Neutrophils 3.9 thou/uL (1.40-6.50); %Basophils 0.8 % (0.0-1.0); %Eosinophils 4.3 % (0.0-10.0); %Lymphocytes 18.1 % (21.0-51.0); %Monocytes 10.5 % (0.0-10.0); Hematocrit 34.6 % (36.0-47.0); Hemoglobin 11.3 g/dL (12.0-16.0); Mean Corpuscular HGB CONC 32.7 g/dL (32.0-36.0); Mean Corpuscular Hemoglobin 31.7 pg (27.0-31.0); Mean Corpuscular Volume 97.2 fl (78.0-98.0); Mean Platelet Volume 10.9 fL (7.4-10.4); Platelet Count 232 10x3/uL (130-400); RBC Distribution Width 13.7 % (11.5-14.5); Red Blood Cell (RBC) Count 3.56 mill/uL (4.20-5.40)
[2023-04-30 05:52] LABS: ALT (SGPT) 11 U/L (8-55); AST (SGOT) 14 U/L (5-34); Albumin 3.5 g/dL (3.5-5.0); Alkaline Phosphatase 88 U/L (40-110); Anion Gap 17 mmol/L (10-20); BUN (Urea Nitrogen) 20 mg/dL (9.8-20.1); Bilirubin, Total 0.2 mg/dL (0.2-1.2); Calc. Creatinine Clearance 31 mL/min (70-130); Calcium 9.5 mg/dL (7.8-10.44); Carbon Dioxide 29 mmol/L (22-29); Chloride 97 mmol/L (98-107); Estimated GFR 10; Globulin 3.8 g/dL (2.4-3.5); Glucose 135 mg/dL (70-105); Protein, Total 7.3 g/dL (6.0-8.3); Sodium 138 mmol/L (136-145)
[2023-04-30 07:59] VITALS: BP 151/59; TEMP 97.4
[2023-04-30] MEDS: Insulin Glargine 30 UNITS/0.3 ML VIAL SC SCH (09:01)
== END 2023-04-30 12:55 | disposition home or self-care (01) | DRG 602 ==
LOC: ERS 18:48 → 2SE 20:37 → ERHOLD 20:53 → 2SE 04-27 15:38
PROVIDERS: ADMIT Family Medicine; ATTEND Family Medicine
DX: L03.312 Cellulitis of back [any part except buttock and flank] (principal); N18.6 End stage renal disease; I50.22 Chronic systolic (congestive) heart failure; I13.2 Hypertensive heart and chronic kidney disease with heart failure and with stage 5 chronic kidney disease, or end stage renal disease; E11.22 Type 2 diabetes mellitus with diabetic chronic kidney disease; E78.5 Hyperlipidemia, unspecified; E03.9 Hypothyroidism, unspecified; I48.91 Unspecified atrial fibrillation; K21.9 Gastro-esophageal reflux disease without esophagitis; E11.51 Type 2 diabetes mellitus with diabetic peripheral angiopathy without gangrene; D64.9 Anemia, unspecified; E87.5 Hyperkalemia; Z79.899 Other long term (current) drug therapy; Z79.4 Long term (current) use of insulin; Z99.2 Dependence on renal dialysis; Z95.810 Presence of automatic (implantable) cardiac defibrillator; Z99.3 Dependence on wheelchair; Z98.890 Other specified postprocedural states; Z90.49 Acquired absence of other specified parts of digestive tract; Z90.710 Acquired absence of both cervix and uterus; Z89.519 Acquired absence of unspecified leg below knee; Z83.3 Family history of diabetes mellitus
CPT/HCPCS: 36415; 36416; 72132; 80048; 80053; 80202; 83036; 83605; 84132; 85025; 86140; 87040; 90935; 93005; 93010; 99284; G0257; J0690; J1644; J1815; J2543; J3010; J3370; J3490; Q5105

== ENCOUNTER 2023-07-02 18:39 | Emergency (ER) | payer MEDICARE, MEDICAID ==
[2023-07-02 22:38] LABS: #Basophils 0.07 10x3/uL (0.0-0.2); %Basophils 1.1 % (0.0-1.0); %Eosinophils 6.5 % (0.0-10.0); %Lymphocytes 24.5 % (21.0-51.0); %Monocytes 9.3 % (0.0-10.0); %Neutrophils 58.1 % (42.0-75.0); Hematocrit 33.1 % (36.0-47.0); Mean Corpuscular HGB CONC 33.2 g/dL (32.0-36.0); Mean Corpuscular Hemoglobin 31.8 pg (27.0-31.0); Mean Corpuscular Volume 95.7 fL (78.0-98.0); Mean Platelet Volume 11.9 fL (7.4-10.4); Platelet Count 259 10x3/uL (130-400); RBC Distribution Width 14.5 % (11.5-14.5); Red Blood Cell (RBC) Count 3.46 mill/uL (4.20-5.40)
[2023-07-02 22:44] LABS: Globulin 4.5 g/dL (2.4-3.5)
[2023-07-02 22:48] LABS: ALT (SGPT) 11 U/L (8-55); AST (SGOT) 14 U/L (5-34); Albumin 2.9 g/dL (3.5-5.0); Alkaline Phosphatase 132 U/L (40-110); Anion Gap 25 mmol/L (10-20); BUN (Urea Nitrogen) 56 mg/dL (9.8-20.1); Bilirubin, Total 0.3 mg/dL (0.2-1.2); Calc. Creatinine Clearance 0 mL/min (70-130); Calcium 9.1 mg/dL (7.8-10.44); Carbon Dioxide 18 mmol/L (22-29); Chloride 101 mmol/L (98-107); Estimated GFR 7; Glucose 334 mg/dL (70-105); Potassium 5.7 mmol/L (3.5-5.1); Protein, Total 7.4 g/dL (6.0-8.3); Sodium 138 mmol/L (136-145)
[2023-07-02] MEDS ORDERED: LOKELMA 10 GM PACKET PO SCH (23:30)
[2023-07-02] MEDS ORDERED: Acetaminophen 500 MG TAB ONE (23:41)
== END 2023-07-03 00:14 | disposition home or self-care (01) ==
LOC: ERS 18:39
DX: L03.113 Cellulitis of right upper limb (principal); E11.65 Type 2 diabetes mellitus with hyperglycemia; E11.22 Type 2 diabetes mellitus with diabetic chronic kidney disease; N18.6 End stage renal disease; E87.5 Hyperkalemia; I11.0 Hypertensive heart disease with heart failure; I50.9 Heart failure, unspecified; Z99.2 Dependence on renal dialysis; M79.601 Pain in right arm
CPT/HCPCS: 36415; 80053; 85025; 93005

== ENCOUNTER 2023-07-19 22:32 | Observation (INO) | payer MEDICARE, MEDICAID ==
[~2023-07-19 22:32] MED LIST changes: +Heparin 10,000 UNITS/ 10 ML VIAL ONE; -Iopamidol-370 76% 500 ML 1 ML ONE
[2023-07-19 23:37] LABS: #Basophils 0.04 10x3/uL (0.0-0.2); %Basophils 0.7 % (0.0-1.0); %Eosinophils 7.2 % (0.0-10.0); %Lymphocytes 21.4 % (21.0-51.0); %Monocytes 8.2 % (0.0-10.0); %Neutrophils 62.2 % (42.0-75.0); Hemoglobin 9.2 g/dL (12.0-16.0); Mean Corpuscular HGB CONC 31.7 g/dL (32.0-36.0); Mean Corpuscular Hemoglobin 32.1 pg (27.0-31.0); Mean Platelet Volume 11.3 fL (7.4-10.4); Platelet Count 274 10x3/uL (130-400); RBC Distribution Width 15.2 % (11.5-14.5); Red Blood Cell (RBC) Count 2.87 mill/uL (4.20-5.40)
[2023-07-20 00:02] LABS: Troponin I 0.134 ng/mL (< 0.028)
[2023-07-20 00:16] LABS: ALT (SGPT) 11 U/L (8-55); AST (SGOT) 8 U/L (5-34); Albumin 2.8 g/dL (3.5-5.0); Alkaline Phosphatase 152 U/L (40-110); Anion Gap 28 mmol/L (10-20); BUN (Urea Nitrogen) 101 mg/dL (9.8-20.1); Bilirubin, Total 0.4 mg/dL (0.2-1.2); Calc. Creatinine Clearance 0 mL/min (70-130); Calcium 8.4 mg/dL (7.8-10.44); Carbon Dioxide 19 mmol/L (22-29); Chloride 95 mmol/L (98-107); Estimated GFR 4; Globulin 4.7 g/dL (2.4-3.5); Protein, Total 7.5 g/dL (6.0-8.3); Sodium 136 mmol/L (136-145)
[2023-07-20 00:23] LABS: Glucose 572 mg/dL (70-105)
[2023-07-20] MEDS ORDERED: CALCIUM GLUC 1 GM (50 ML) BAG ONE (03:03)
[2023-07-20] MEDS ORDERED: HYDROcodone/Acetaminophen 5/325 mg Tablet ONE (03:03)
[2023-07-20] MEDS ORDERED: Insulin Regular, Human 100 UNIT/ML 10 ML VIAL ONE (03:03)
[2023-07-20] MEDS ORDERED: Acetaminophen 500 MG TAB ONE (05:17)
[2023-07-20] MEDS ORDERED: Epoetin (ESRD) 20,000 UNITS/ML MDV SC SCH (09:30)
[2023-07-20 14:01] LABS: Actual Bicarbonate (HCO3v) 23.8 mEq/L (22-28); Base Excess -0.5 mEq/L (-2.0 to +3.0); Calcium, Ionized (venous) 0.96 mmol/L (1.16-1.32); Chloride (VBG) 98 mmol/L (98-106); Hematocrit-VBG 28 % (36.0-47.0); Hemoglobin (Hb) 9.5 g/dL (11.7-16.0); Potassium (VBG) 4.54 mmol/L (3.70-5.30); Sodium 135 mmol/L (133-146); pH (venous) 7.419 (7.32-7.43)
[2023-07-20] MEDS ORDERED: Glucagon 1 MG/ML KIT IM PRN (14:59)
[2023-07-20] MEDS ORDERED: Dextrose 5% in Water 1,000 ML IV PRN (14:59)
[2023-07-20] MEDS ORDERED: Dextrose 50% Abboject 50 ML SYRINGE SLOW IVP PRN (14:59)
[2023-07-20 15:08] LABS: Potassium 4.4 mmol/L (3.5-5.1)
[2023-07-20] MEDS ORDERED: Ondansetron ODT 4 MG TAB PO PRN (15:28)
[2023-07-20] MEDS ORDERED: Senokot S 8.6-50 MG TAB PO PRN (15:28)
[2023-07-20] MEDS ORDERED: Heparin 5,000 UNITS/ML VIAL ONE (15:32)
[2023-07-20 17:44] VITALS: BMI 39.9
[2023-07-20] MEDS ORDERED: Acetaminophen 325 MG TAB ONE ×2 (18:38→18:46)
[2023-07-20] MEDS: Heparin 5,000 UNITS/ML VIAL SC SCH (18:40)
[2023-07-20] MEDS: EPOETIN ALFA-EPBX (ESRD) 10,000 UNITS/ML VIAL SC SCH ×2 (18:49→19:05)
[2023-07-20] MEDS: Acetaminophen 325 MG TAB PO PRN (18:51)
[2023-07-20] MEDS: Sevelamer Carbonate 800 MG TAB PO SCH (18:52)
[2023-07-20] MEDS: Calcium Acetate 667 MG CAP PO SCH (18:53)
[2023-07-20] MEDS: Icosapent Ethyl 1 GM CAPSULE PO SCH (18:53)
[2023-07-20 18:59] LABS: #Basophils 0.04 10x3/uL (0.0-0.2); %Basophils 0.6 % (0.0-1.0); %Eosinophils 5.9 % (0.0-10.0); %Lymphocytes 16.4 % (21.0-51.0); %Neutrophils 68.8 % (42.0-75.0); Hematocrit 27.9 % (36.0-47.0); Hemoglobin 9.1 g/dL (12.0-16.0); Mean Corpuscular HGB CONC 32.6 g/dL (32.0-36.0); Mean Corpuscular Hemoglobin 31.9 pg (27.0-31.0); Mean Corpuscular Volume 97.9 fL (78.0-98.0); Mean Platelet Volume 11.1 fL (7.4-10.4); Platelet Count 263 10x3/uL (130-400); RBC Distribution Width 15.5 % (11.5-14.5); Red Blood Cell (RBC) Count 2.85 mill/uL (4.20-5.40)
[2023-07-20 19:14] LABS: ALT (SGPT) 9 U/L (8-55); AST (SGOT) 10 U/L (5-34); Albumin 2.5 g/dL (3.5-5.0); Alkaline Phosphatase 105 U/L (40-110); Anion Gap 20 mmol/L (10-20); BUN (Urea Nitrogen) 52 mg/dL (9.8-20.1); Bilirubin, Total 0.4 mg/dL (0.2-1.2); Calc. Creatinine Clearance 17 mL/min (70-130); Calcium 8.7 mg/dL (7.8-10.44); Carbon Dioxide 23 mmol/L (22-29); Chloride 99 mmol/L (98-107); Estimated GFR 8; Globulin 4.4 g/dL (2.4-3.5); Glucose 272 mg/dL (70-105); Potassium 5.1 mmol/L (3.5-5.1); Protein, Total 6.9 g/dL (6.0-8.3); Sodium 137 mmol/L (136-145)
[2023-07-20 19:19] LABS: Troponin I 0.111 ng/mL (< 0.028)
[2023-07-20] MEDS ORDERED: Insulin Glargine 30 UNITS/0.3 ML VIAL SC SCH (21:00)
[2023-07-20] MEDS: Insulin Glargine 30 UNITS/0.3 ML VIAL SC SCH (21:08)
[2023-07-20] MEDS: HumaLOG 300 UNITS/3 ML VIAL SC PRN (21:08)
[2023-07-20] MEDS: Atorvastatin Calcium 40 MG TAB PO SCH (21:09)
[2023-07-20] MEDS: Lisinopril 20 MG TAB PO SCH (21:09)
[2023-07-20] MEDS: NIFEdipine XL 60 MG ER.TAB PO SCH (21:10)
[2023-07-21 04:40] LABS: #Basophils 0.05 10x3/uL (0.0-0.2); %Basophils 0.8 % (0.0-1.0); %Eosinophils 6.4 % (0.0-10.0); %Lymphocytes 21.7 % (21.0-51.0); %Monocytes 8.1 % (0.0-10.0); %Neutrophils 62.7 % (42.0-75.0); Hematocrit 29.1 % (36.0-47.0); Hemoglobin 9.2 g/dL (12.0-16.0); Mean Corpuscular HGB CONC 31.6 g/dL (32.0-36.0); Mean Corpuscular Hemoglobin 31.7 pg (27.0-31.0); Mean Corpuscular Volume 100.3 fL (78.0-98.0); Mean Platelet Volume 11.2 fL (7.4-10.4); Platelet Count 270 10x3/uL (130-400); RBC Distribution Width 15.6 % (11.5-14.5)
[2023-07-21 05:02] LABS: ALT (SGPT) 9 U/L (8-55); AST (SGOT) 11 U/L (5-34); Albumin 2.5 g/dL (3.5-5.0); Alkaline Phosphatase 85 U/L (40-110); Anion Gap 21 mmol/L (10-20); BUN (Urea Nitrogen) 59 mg/dL (9.8-20.1); Bilirubin, Total 0.4 mg/dL (0.2-1.2); Calc. Creatinine Clearance 15 mL/min (70-130); Calcium 8.7 mg/dL (7.8-10.44); Carbon Dioxide 23 mmol/L (22-29); Chloride 99 mmol/L (98-107); Estimated GFR 7; Globulin 4.4 g/dL (2.4-3.5); Glucose 189 mg/dL (70-105); Potassium 4.8 mmol/L (3.5-5.1); Protein, Total 6.9 g/dL (6.0-8.3); Sodium 138 mmol/L (136-145)
[2023-07-21] MEDS: HumaLOG 300 UNITS/3 ML VIAL SC PRN (06:02)
[2023-07-21] MEDS: Levothyroxine Sodium 25 MCG TAB PO SCH (06:02)
[2023-07-21] MEDS: Albumin 25% 25 GM (100 mL) BOT IVPB SCH (09:22)
[2023-07-21] MEDS: Metamucil PACK PO SCH (13:41)
[2023-07-21] MEDS: Saccharomyces boulardii 250 MG CAP PO SCH (14:25)
[2023-07-21] MEDS: Ezetimibe 10 MG TAB PO SCH (14:25)
[2023-07-21] MEDS: Pantoprazole DR 40 MG TAB PO SCH (14:25)
[2023-07-21] MEDS: Cholecalciferol 1,000 UNITS (25 MCG) TAB PO SCH (14:26)
[2023-07-21] MEDS: Aspirin Chewable 81 MG TAB PO SCH (14:26)
[2023-07-21] MEDS: traMADol HCl 50 MG TAB PO SCH (15:24)
[2023-07-21] MEDS: Lidocaine 4% Patch TD SCH (15:26)
[2023-07-21 17:00] VITALS: BP 133/58; TEMP 99.5
[2023-07-22] MEDS ORDERED: Transdermal Patch Removal TOP SCH (05:00)
[2023-07-23] MEDS ORDERED: Heparin 10,000 UNITS/ 10 ML VIAL ONE (09:58)
== END 2023-07-21 18:21 | disposition home or self-care (01) ==
LOC: ERS 22:32 → ERHOLD 07-20 14:19 → 2NO 07-20 20:35
PROVIDERS: ADMIT Family Medicine; ATTEND Family Medicine
DX: I13.2 Hypertensive heart and chronic kidney disease with heart failure and with stage 5 chronic kidney disease, or end stage renal disease (principal); N18.6 End stage renal disease; I50.20 Unspecified systolic (congestive) heart failure; I50.9 Heart failure, unspecified; D63.1 Anemia in chronic kidney disease; E11.22 Type 2 diabetes mellitus with diabetic chronic kidney disease; E11.42 Type 2 diabetes mellitus with diabetic polyneuropathy; E87.5 Hyperkalemia; Z99.2 Dependence on renal dialysis; I95.9 Hypotension, unspecified; R79.89 Other specified abnormal findings of blood chemistry; R73.9 Hyperglycemia, unspecified; L94.2 Calcinosis cutis; I48.91 Unspecified atrial fibrillation; K21.9 Gastro-esophageal reflux disease without esophagitis; E03.9 Hypothyroidism, unspecified; M19.90 Unspecified osteoarthritis, unspecified site; Z96.651 Presence of right artificial knee joint; Z89.432 Acquired absence of left foot
CPT/HCPCS: 71045; 80053 ×3; 82805; 82962 ×2; 83880; 84132; 84484 ×2; 85025 ×3; 93005; 94760; 96372 ×2; 96374; 96375; 99284; G0378 ×3; J0613; J1815; P9047; Q5105; 36415; 36416; J1644

== ENCOUNTER 2023-09-11 02:53 | Inpatient (IN) | payer MEDICARE, MEDICAID ==
[2023-09-11 04:34] LABS: #Basophils 0.06 10x3/uL (0.0-0.2); %Basophils 0.7 % (0.0-1.0); %Monocytes 10.7 % (0.0-10.0); %Neutrophils 75.2 % (42.0-75.0); Hemoglobin 11.6 g/dL (12.0-16.0); Mean Corpuscular HGB CONC 31.4 g/dL (32.0-36.0); Mean Corpuscular Hemoglobin 29.7 pg (27.0-31.0); Mean Corpuscular Volume 94.6 fL (78.0-98.0); Mean Platelet Volume 11.2 fL (7.4-10.4); Platelet Count 367 10x3/uL (130-400); RBC Distribution Width 15.2 % (11.5-14.5); Red Blood Cell (RBC) Count 3.91 mill/uL (4.20-5.40)
[2023-09-11 04:38] LABS: ALT (SGPT) 6 U/L (8-55); AST (SGOT) 12 U/L (5-34); Albumin 2.8 g/dL (3.5-5.0); Alkaline Phosphatase 98 U/L (40-110); Anion Gap 19 mmol/L (10-20); BUN (Urea Nitrogen) 37 mg/dL (9.8-20.1); Bilirubin, Total 0.3 mg/dL (0.2-1.2); Calc. Creatinine Clearance 0 mL/min (70-130); Calcium 9.3 mg/dL (7.8-10.44); Carbon Dioxide 24 mmol/L (22-29); Chloride 93 mmol/L (98-107); Estimated GFR 7; Globulin 5.3 g/dL (2.4-3.5); Glucose 273 mg/dL (70-105); Potassium 4.3 mmol/L (3.5-5.1); Protein, Total 8.1 g/dL (6.0-8.3); Sodium 132 mmol/L (136-145)
[2023-09-11] MEDS ORDERED: Morphine 4 MG/ML VIAL ONE (04:54)
[2023-09-11] MEDS ORDERED: Ondansetron PF 4 MG/2 ML Vial ONE (04:54)
[2023-09-11] MEDS ORDERED: Clindamycin/D5W 600 mg/50 ml Premix Bag ONE (06:43)
[2023-09-11] MEDS ORDERED: Ondansetron ODT 4 MG TAB SL PRN (06:45)
[2023-09-11] MEDS ORDERED: Ondansetron PF 4 MG/2 ML Vial IVP PRN (06:45)
[2023-09-11] MEDS ORDERED: Glucagon 1 MG/ML KIT IM PRN (07:08)
[2023-09-11] MEDS ORDERED: Dextrose 5% in Water 1,000 ML IV PRN (07:08)
[2023-09-11] MEDS ORDERED: HumaLOG 300 UNITS/3 ML VIAL SC PRN ×2 (07:08)
[2023-09-11] MEDS ORDERED: Senokot S 8.6-50 MG TAB PO PRN (07:08)
[2023-09-11] MEDS ORDERED: Dextrose 50% Abboject 50 ML SYRINGE SLOW IVP PRN (07:08)
[2023-09-11] MEDS ORDERED: Clindamycin/D5W 600 MG in Premix 1 BAG IVPB SCH (08:00)
[2023-09-11] MEDS ORDERED: AMOXicillin 250 MG CAP PO SCH (08:30)
[2023-09-11 08:36] VITALS: BMI 45.7
[2023-09-11 08:52] VITALS: BMI 45.7
[2023-09-11] MEDS ORDERED: Non-Formulary Item 1 EACH (Cholecalciferol (Vitamin D3) [Vitamin D3] 2,000 UNIT Capsule) PO SCH (09:00)
[2023-09-11] MEDS: Amoxicillin/Potassium Clav 875 MG TAB PO SCH (09:40)
[2023-09-11] MEDS: Cholecalciferol 1,000 UNITS (25 MCG) TAB PO SCH (09:40)
[2023-09-11] MEDS: Ezetimibe 10 MG TAB PO SCH (09:40)
[2023-09-11] MEDS: Saccharomyces boulardii 250 MG CAP PO SCH (09:41)
[2023-09-11] MEDS: Pantoprazole DR 40 MG TAB PO SCH (09:41)
[2023-09-11] MEDS: Doxycycline 100 MG CAP PO SCH (09:41)
[2023-09-11] MEDS: Aspirin Chewable 81 MG TAB PO SCH (09:42)
[2023-09-11] MEDS: Acetaminophen 325 MG TAB PO PRN (09:42)
[2023-09-11] MEDS: Metamucil PACK PO SCH (09:43)
[2023-09-11] MEDS: Insulin Glargine 30 UNITS/0.3 ML VIAL SC SCH (09:43)
[2023-09-11] MEDS: Heparin 5,000 UNITS/ML VIAL SC SCH (09:44)
[2023-09-11] MEDS: Calcium Acetate 667 MG CAP PO SCH (11:57)
[2023-09-11] MEDS: Sevelamer Carbonate 800 MG TAB PO SCH (11:57)
[2023-09-11] MEDS ORDERED: Insulin Lispro 100 UNIT/ML 10 ML VIAL SC PRN (12:00)
[2023-09-11] MEDS: Insulin Lispro 100 UNIT/ML 10 ML VIAL SC PRN (12:03)
[2023-09-11 16:41] LABS: HBsAg Index 0.25 S/CO (0-0.99); Hep B Core Total Ab NONREACTIVE (NonReactive); Hep B Core Total Index 0.14 S/CO (0-0.79); Hep B Surf AB REACTIVE (NonReactive); Hep B Surf Ag NONREACTIVE S/CO (NonReactive); Hep C IgG Ab NONREACTIVE S/CO (NonReactive); Hep C Index 0.14 S/CO (0-0.79)
[2023-09-11] MEDS ORDERED: Non-Formulary Item 1 EACH (Icosapent Ethyl 1 GM Capsule) PO SCH (17:00)
[2023-09-11] MEDS: Icosapent Ethyl 1 GM CAPSULE PO SCH (20:32)
[2023-09-11] MEDS ORDERED: [UNRECOGNIZED DRUG - OTHER] SC SCH (21:00)
[2023-09-11] MEDS ORDERED: INSULIN GLARGINE YFGN 100 UNIT/ML SC SCH (21:00)
[2023-09-11] MEDS ORDERED: INSULN SC SCH (21:00)
[2023-09-11] MEDS: Lisinopril 20 MG TAB PO SCH (21:23)
[2023-09-11] MEDS: NIFEdipine XL 60 MG ER.TAB PO SCH (21:23)
[2023-09-11] MEDS: Morphine 4 MG/ML VIAL SLOW IVP SCH (21:23)
[2023-09-11] MEDS: Atorvastatin Calcium 40 MG TAB PO SCH (21:24)
[2023-09-11] MEDS: Ondansetron ODT 8 MG TAB SL PRN (21:24)
[2023-09-11] MEDS: Phytonadione 5 MG TAB PO SCH (21:27)
[2023-09-11] MEDS: EPOETIN ALFA-EPBX (ESRD) 10,000 UNITS/ML VIAL SC SCH (23:15)
[2023-09-12 04:54] LABS: #Basophils 0.07 10x3/uL (0.0-0.2); %Basophils 0.9 % (0.0-1.0); %Monocytes 9.1 % (0.0-10.0); %Neutrophils 74.2 % (42.0-75.0); Hematocrit 35.9 % (36.0-47.0); Hemoglobin 11.4 g/dL (12.0-16.0); Mean Corpuscular HGB CONC 31.8 g/dL (32.0-36.0); Mean Corpuscular Hemoglobin 29.2 pg (27.0-31.0); Mean Corpuscular Volume 92.1 fL (78.0-98.0); Mean Platelet Volume 11.3 fL (7.4-10.4); Platelet Count 319 10x3/uL (130-400); RBC Distribution Width 15.4 % (11.5-14.5)
[2023-09-12] MEDS: Levothyroxine Sodium 25 MCG TAB PO SCH (05:02)
[2023-09-12 05:16] LABS: ALT (SGPT) 6 U/L (8-55); AST (SGOT) 8 U/L (5-34); Albumin 2.5 g/dL (3.5-5.0); Alkaline Phosphatase 76 U/L (40-110); Anion Gap 25 mmol/L (10-20); BUN (Urea Nitrogen) 20 mg/dL (9.8-20.1); Bilirubin, Total 0.2 mg/dL (0.2-1.2); Calc. Creatinine Clearance 24 mL/min (70-130); Carbon Dioxide 19 mmol/L (22-29); Chloride 94 mmol/L (98-107); Estimated GFR 11; Globulin 4.8 g/dL (2.4-3.5); Glucose 226 mg/dL (70-105); Potassium 4.3 mmol/L (3.5-5.1); Protein, Total 7.3 g/dL (6.0-8.3); Sodium 134 mmol/L (136-145)
[2023-09-12] MEDS: Calcitriol 0.25 MCG CAP PO SCH (09:18)
[2023-09-12] MEDS: Acetaminophen 325 MG TAB PO PRN (11:30)
[2023-09-12] MEDS: HYDROcodone/Acetaminophen 5/325 mg Tablet PO SCH (21:05)
[2023-09-12] MEDS: Ondansetron PF 4 MG/2 ML Vial IVP SCH (23:59)
[2023-09-12] MEDS: Morphine 4 MG/ML VIAL SLOW IVP SCH (23:59)
[2023-09-13 06:53] LABS: #Basophils 0.07 10x3/uL (0.0-0.2); %Basophils 0.8 % (0.0-1.0); %Eosinophils 3.4 % (0.0-10.0); %Monocytes 12.6 % (0.0-10.0); %Neutrophils 66.8 % (42.0-75.0); Hematocrit 36.6 % (36.0-47.0); Hemoglobin 11.8 g/dL (12.0-16.0); Mean Corpuscular HGB CONC 32.2 g/dL (32.0-36.0); Mean Corpuscular Hemoglobin 29.3 pg (27.0-31.0); Mean Corpuscular Volume 90.8 fL (78.0-98.0); Platelet Count 312 10x3/uL (130-400); RBC Distribution Width 15.7 % (11.5-14.5); Red Blood Cell (RBC) Count 4.03 mill/uL (4.20-5.40)
[2023-09-13 07:18] LABS: ALT (SGPT) 5 U/L (8-55); AST (SGOT) 9 U/L (5-34); Albumin 2.5 g/dL (3.5-5.0); Alkaline Phosphatase 74 U/L (40-110); Anion Gap 25 mmol/L (10-20); BUN (Urea Nitrogen) 33 mg/dL (9.8-20.1); Bilirubin, Total 0.2 mg/dL (0.2-1.2); Calc. Creatinine Clearance 18 mL/min (70-130); Calcium 10.4 mg/dL (7.8-10.44); Carbon Dioxide 20 mmol/L (22-29); Chloride 93 mmol/L (98-107); Estimated GFR 8; Globulin 4.5 g/dL (2.4-3.5); Glucose 127 mg/dL (70-105); Potassium 4.8 mmol/L (3.5-5.1); Sodium 133 mmol/L (136-145)
[2023-09-13] MEDS: Phytonadione 5 MG TAB PO SCH (10:15)
[2023-09-13] MEDS: HYDROcodone/Acetaminophen 5/325 mg Tablet PO PRN (11:43)
[2023-09-13] MEDS: Insulin Glargine 30 UNITS/0.3 ML VIAL SC SCH (21:19)
[2023-09-14 06:08] LABS: #Basophils 0.06 10x3/uL (0.0-0.2); %Basophils 0.7 % (0.0-1.0); %Eosinophils 3.4 % (0.0-10.0); %Lymphocytes 15.1 % (21.0-51.0); %Monocytes 9.1 % (0.0-10.0); %Neutrophils 71.2 % (42.0-75.0); Hemoglobin 12.2 g/dL (12.0-16.0); Mean Corpuscular HGB CONC 31.3 g/dL (32.0-36.0); Mean Corpuscular Hemoglobin 29.5 pg (27.0-31.0); Mean Corpuscular Volume 94.4 fL (78.0-98.0); Mean Platelet Volume 11.2 fL (7.4-10.4); Platelet Count 338 10x3/uL (130-400); RBC Distribution Width 15.6 % (11.5-14.5); Red Blood Cell (RBC) Count 4.13 mill/uL (4.20-5.40)
[2023-09-14 06:56] LABS: ALT (SGPT) 5 U/L (8-55); AST (SGOT) 8 U/L (5-34); Albumin 2.4 g/dL (3.5-5.0); Alkaline Phosphatase 83 U/L (40-110); Anion Gap 29 mmol/L (10-20); BUN (Urea Nitrogen) 44 mg/dL (9.8-20.1); Bilirubin, Total 0.2 mg/dL (0.2-1.2); Calc. Creatinine Clearance 14 mL/min (70-130); Calcium 10.5 mg/dL (7.8-10.44); Carbon Dioxide 20 mmol/L (22-29); Chloride 91 mmol/L (98-107); Estimated GFR 6; Globulin 4.6 g/dL (2.4-3.5); Glucose 105 mg/dL (70-105); Potassium 5.2 mmol/L (3.5-5.1); Sodium 135 mmol/L (136-145)
[2023-09-14] MEDS: Lidocaine 4% Patch TD SCH (15:32)
[2023-09-14] MEDS: Cyclobenzaprine 10 MG TAB PO PRN (21:06)
[2023-09-15] MEDS: Transdermal Patch Removal TOP SCH (00:31)
[2023-09-15 06:13] LABS: #Basophils 0.07 10x3/uL (0.0-0.2); %Basophils 0.8 % (0.0-1.0); %Eosinophils 1.9 % (0.0-10.0); %Lymphocytes 15.6 % (21.0-51.0); %Monocytes 8.9 % (0.0-10.0); %Neutrophils 72.5 % (42.0-75.0); Hematocrit 41.1 % (36.0-47.0); Hemoglobin 12.5 g/dL (12.0-16.0); Mean Corpuscular HGB CONC 30.4 g/dL (32.0-36.0); Mean Corpuscular Hemoglobin 28.5 pg (27.0-31.0); Mean Corpuscular Volume 93.6 fL (78.0-98.0); Platelet Count 340 10x3/uL (130-400); RBC Distribution Width 15.8 % (11.5-14.5); Red Blood Cell (RBC) Count 4.39 mill/uL (4.20-5.40)
[2023-09-15 06:34] LABS: ALT (SGPT) 5 U/L (8-55); AST (SGOT) 10 U/L (5-34); Albumin 2.5 g/dL (3.5-5.0); Alkaline Phosphatase 80 U/L (40-110); Anion Gap 23 mmol/L (10-20); BUN (Urea Nitrogen) 22 mg/dL (9.8-20.1); Bilirubin, Total 0.3 mg/dL (0.2-1.2); Calc. Creatinine Clearance 23 mL/min (70-130); Calcium 10.6 mg/dL (7.8-10.44); Carbon Dioxide 21 mmol/L (22-29); Chloride 99 mmol/L (98-107); Estimated GFR 10; Globulin 4.9 g/dL (2.4-3.5); Glucose 98 mg/dL (70-105); Potassium 4.5 mmol/L (3.5-5.1); Protein, Total 7.4 g/dL (6.0-8.3); Sodium 138 mmol/L (136-145)
[2023-09-15 07:50] VITALS: BP 147/88; TEMP 98.4
[2023-09-15] MEDS: Insulin Glargine 30 UNITS/0.3 ML VIAL SC SCH (08:44)
[2023-09-15] MEDS: Acetaminophen 325 MG TAB PO SCH (10:14)
[2023-09-15] MEDS: Senokot S 8.6-50 MG TAB PO PRN (12:42)
[2023-09-15] MEDS ORDERED: Diclofenac 1% 50 GM TOPICAL GEL TP SCH (13:00)
== END 2023-09-15 15:14 | disposition home health service (06) | DRG 592 ==
LOC: ERS 02:53 → T4-B 06:26 → OBSVTOIN 09-13 11:11
PROVIDERS: ADMIT Family Medicine; ATTEND Family Medicine
DX: L89.159 Pressure ulcer of sacral region, unspecified stage (principal); N18.6 End stage renal disease; Z68.42 Body mass index [BMI] 45.0-49.9, adult; I13.2 Hypertensive heart and chronic kidney disease with heart failure and with stage 5 chronic kidney disease, or end stage renal disease; L02.415 Cutaneous abscess of right lower limb; L02.31 Cutaneous abscess of buttock; L94.2 Calcinosis cutis; E83.59 Other disorders of calcium metabolism; E78.5 Hyperlipidemia, unspecified; Z99.2 Dependence on renal dialysis; I48.91 Unspecified atrial fibrillation; K21.9 Gastro-esophageal reflux disease without esophagitis; E03.9 Hypothyroidism, unspecified; E11.40 Type 2 diabetes mellitus with diabetic neuropathy, unspecified; R19.7 Diarrhea, unspecified; E66.01 Morbid (severe) obesity due to excess calories; E11.51 Type 2 diabetes mellitus with diabetic peripheral angiopathy without gangrene; I50.9 Heart failure, unspecified; M19.90 Unspecified osteoarthritis, unspecified site; E88.09 Other disorders of plasma-protein metabolism, not elsewhere classified; E11.22 Type 2 diabetes mellitus with diabetic chronic kidney disease; Z89.521 Acquired absence of right knee; Z89.422 Acquired absence of other left toe(s); Z79.4 Long term (current) use of insulin; Z89.612 Acquired absence of left leg above knee; Z89.611 Acquired absence of right leg above knee; Z90.710 Acquired absence of both cervix and uterus; Z90.49 Acquired absence of other specified parts of digestive tract; Z79.890 Hormone replacement therapy; Z79.899 Other long term (current) drug therapy; Z79.82 Long term (current) use of aspirin; Z99.3 Dependence on wheelchair
CPT/HCPCS: 36415; 36416; 74176; 80053; 83605; 85025; 86704; 86706; 86803; 87040; 87149; 87340; 90935; 93005; 96372; 96374; 96375; 96376; 97139; G0257; G0378; J0208; J1644; J1815; J2270; J2405; J3490; Q0162; Q5105

== ENCOUNTER 2023-09-27 16:51 | Emergency (ER) | payer MEDICARE, MEDICAID ==
[~2023-09-27 16:51] MED LIST changes: -Heparin 10,000 UNITS/ 10 ML VIAL ONE; +Iopamidol-370 76% 500 ML MDV (1 ML CHARGE) ONE
[2023-09-27] MEDS ORDERED: Morphine 4 MG/ML VIAL ONE (18:34)
[2023-09-27] MEDS ORDERED: Ondansetron PF 4 MG/2 ML Vial ONE (18:34)
[2023-09-27 18:43] LABS: #Basophils 0.04 10x3/uL (0.0-0.2); %Basophils 0.5 % (0.0-1.0); %Eosinophils 3.3 % (0.0-10.0); %Lymphocytes 11.8 % (21.0-51.0); %Monocytes 6.7 % (0.0-10.0); %Neutrophils 77.3 % (42.0-75.0); Hematocrit 35.8 % (36.0-47.0); Hemoglobin 11.2 g/dL (12.0-16.0); Mean Corpuscular HGB CONC 31.3 g/dL (32.0-36.0); Mean Corpuscular Hemoglobin 28.9 pg (27.0-31.0); Mean Corpuscular Volume 92.3 fL (78.0-98.0); Mean Platelet Volume 10.3 fL (7.4-10.4); Platelet Count 342 10x3/uL (130-400); RBC Distribution Width 15.8 % (11.5-14.5); Red Blood Cell (RBC) Count 3.88 mill/uL (4.20-5.40)
[2023-09-27 19:01] LABS: ALT (SGPT) 7 U/L (8-55); AST (SGOT) 10 U/L (5-34); Albumin 2.4 g/dL (3.5-5.0); Alkaline Phosphatase 111 U/L (40-110); Anion Gap 18 mmol/L (10-20); BUN (Urea Nitrogen) 45 mg/dL (9.8-20.1); Bilirubin, Total 0.3 mg/dL (0.2-1.2); Calc. Creatinine Clearance 0 mL/min (70-130); Carbon Dioxide 26 mmol/L (22-29); Chloride 91 mmol/L (98-107); Estimated GFR 7; Globulin 5.2 g/dL (2.4-3.5); Glucose 269 mg/dL (70-105); Lipase 43 U/L (8-78); Potassium 4.6 mmol/L (3.5-5.1); Protein, Total 7.6 g/dL (6.0-8.3); Sodium 130 mmol/L (136-145)
== END 2023-09-27 22:13 | disposition home or self-care (01) ==
LOC: ERS 16:51
DX: S31.829A Unspecified open wound of left buttock, initial encounter (principal); S31.819A Unspecified open wound of right buttock, initial encounter; L94.2 Calcinosis cutis; R10.9 Unspecified abdominal pain; I13.2 Hypertensive heart and chronic kidney disease with heart failure and with stage 5 chronic kidney disease, or end stage renal disease; E11.22 Type 2 diabetes mellitus with diabetic chronic kidney disease; N18.6 End stage renal disease; I50.9 Heart failure, unspecified; X58.XXXA Exposure to other specified factors, initial encounter; Z99.2 Dependence on renal dialysis
CPT/HCPCS: 74177; 80053; 83605; 83690; 85025; 87040; J2272; J2405; 36415; 96374; 96375; Q9967

== ENCOUNTER 2024-04-08 09:13 | Emergency (ER) | payer MEDICARE, MEDICAID ==
[2024-04-08 09:45] LABS: #Basophils 0.08 10x3/uL (0.0-0.2); %Basophils 1.6 % (0.0-1.0); %Eosinophils 4.8 % (0.0-10.0); %Lymphocytes 13.7 % (21.0-51.0); %Monocytes 9.1 % (0.0-10.0); %Neutrophils 70.4 % (42.0-75.0); Hematocrit 35.7 % (36.0-47.0); Hemoglobin 11.4 g/dL (12.0-16.0); Mean Corpuscular HGB CONC 31.9 g/dL (32.0-36.0); Mean Corpuscular Hemoglobin 31.1 pg (27.0-31.0); Mean Corpuscular Volume 97.5 fL (78.0-98.0); Mean Platelet Volume 11.9 fL (7.4-10.4); Platelet Count 187 10x3/uL (130-400); RBC Distribution Width 15.8 % (11.5-14.5); Red Blood Cell (RBC) Count 3.66 mill/uL (4.20-5.40)
[2024-04-08] MEDS ORDERED: Morphine 4 MG/ML VIAL ONE ×2 (09:54→11:05)
[2024-04-08] MEDS ORDERED: HYDROcodone/Acetaminophen 10/325 mg Tablet ONE (09:55)
[2024-04-08 10:05] LABS: Troponin I 0.108 ng/mL (< 0.028)
[2024-04-08 10:06] LABS: ALT (SGPT) Less than 7 U/L (Less than 34); AST (SGOT) 13 U/L (11-34); Albumin 3.2 g/dL (3.1-4.5); Alkaline Phosphatase 112 U/L (40-110); Anion Gap 17 mmol/L (10-20); BUN (Urea Nitrogen) 20 mg/dL (9.8-20.1); Bilirubin, Total 0.4 mg/dL (0.3-1.2); Calc. Creatinine Clearance 0 mL/min (70-130); Calcium 9.2 mg/dL (7.8-10.44); Carbon Dioxide 24 mmol/L (22-29); Chloride 101 mmol/L (98-107); Estimated GFR 14; Globulin 4.3 g/dL (2.4-3.5); Glucose 167 mg/dL (70-105); Lipase 30 U/L (8-78); Magnesium 1.9 mg/dL (1.6-2.6); Protein, Total 7.5 g/dL (6.0-8.3); Sodium 138 mmol/L (136-145)
[2024-04-08] MEDS ORDERED: Mag-Al 1200 mg/1200 mg/30 ML UDCUP ONE (13:44)
[2024-04-08] MEDS ORDERED: Famotidine 20 MG TAB ONE (13:44)
[2024-04-08] MEDS ORDERED: Lidocaine Viscous Sol 2% 15 ml UD Cup ONE (13:44)
[2024-04-08] MEDS ORDERED: Iopamidol-370 76% 500 ML MDV (1 ML CHARGE) ONE (15:15)
== END 2024-04-08 14:24 | disposition home or self-care (01) ==
LOC: ERS 09:13
DX: K29.00 Acute gastritis without bleeding (principal); I13.0 Hypertensive heart and chronic kidney disease with heart failure and stage 1 through stage 4 chronic kidney disease, or unspecified chronic kidney disease; I50.9 Heart failure, unspecified; N18.6 End stage renal disease; E11.22 Type 2 diabetes mellitus with diabetic chronic kidney disease; Z99.2 Dependence on renal dialysis
CPT/HCPCS: 74177; 80053; 83605; 83690; 83735; 84484; 85025; 93005; J2270; 36415; 96372; Q9967